=== PATIENT | female | born 1940 | race Caucasian/White ===

== ENCOUNTER 2016-10-21 19:27 | Emergency (ER) | payer OTHER, MEDICARE ==
[~2016-10-21] VITALS: Ht 162.6 cm; Wt 89.8 kg
[~2016-10-21 19:27] MED LIST: ALBUTEROL0.09 MG/A1 INH; AMOXIL 875 MG875 MG PO; ANTIVERT 12.512.5 M1 PO; ANTIVERT 12.512.5 MG PO; ASPIR 8181 MG PO; ASPIRIN EC81 M1 PO; ATIVAN0.5 MG PO; ATIVAN1 MG PO; AUGMENTIN 875 M1 TAB PO; AZITHROMYCIN250 M1 PO; BACTRIM DS 8001 TAB PO; BENADRYL ALLERG25 M1 PO; BENEFIBER1 EACH PO; BLM PO; Benadryl TOP; CEPHALEXIN500 MG PO; CIPRO 500MG TA500 MG PO; CITRATE OF1.75 GM/30 PO; CLARITIN10 MG PO; COLACE100 M1 PO; CYCLOBENZAPRINE5 M2 PO; ECOTRIN81 MG PO; FLU VACCINE 0.0.5 ML IM; HYDROXYZINE HCL25 MG PO; IBU800 MG PO; KEFLEX500 MG PO; LOMOTIL 0.025 M1 TAB PO; LOPERAMIDE2 MG PO; LORAZEPAM0.5 M1 PO; LOTRIMIN CR1 %/30 GM TOP; MACROBID100 MG PO; MECLIZINE HCL PO; MECLIZINE HCL12.5 MG PO; MIRALAX119 GM PO; MIRALAX17 G1 PO; MIRALAX17 GM PO; MOTRIN 600 MG600 MG PO; MOTRIN800 MG PO; NASONEX0.05 MG/Ac NAS; NORVASC 5MG TAB5 MG PO; NYSTATIN100000 U/2 TOP; OMEPRAZOLE D/R20 MG PO; PERCOCET 5-3251 EACH PO; PNEUMOVAX 0.5M0.5 ML IM; PREDNISONE 20MG20 MG PO; PREDNISONE20 MG PO; PRILOSEC 20MG C20 MG PO; PROAIR HFA0.09 MG/Ac INH; PROVENTIL0.09 MG/A1 PO; PYRIDIUM100 MG PO; REGLAN10 MG PO; ROBITUSSIN COU237 ML PO; SENNA PLUS 50 M1 TAB PO; SENNA8.6 M1 PO; SENNA8.6 M3 PO; SPIRIVA 18 MCG18 MCG INH; Senokot S PO; TESSALON PERLE100 M1 PO; TESSALON PERLE100 MG PO; TRAMADOL HCL50 M1 PO; TYLENOL EXTRA500 M2 PO; TYLENOL WITH C1 EACH PO; TYLENOL XSTR500 MG PO; TYLENOL325 MG PO; ULTRAM(MONOGRAP50 MG PO; ZOFRAN 4 MG TABL4 MG PO; ZOFRAN ODT4 MG PO; ZOFRAN ODT4 MG SL; ZOFRAN4 M1 PO; ZOFRAN4 M1 SL; ZOFRAN4 M2 PO
[2016-10-21 20:46] LABS: ABSOLUTE BASOPHIL COUNT 0 /CUMM (0.0-0.2); ABSOLUTE EOSINOPHIL COUNT 0.1 /CUMM (0.0-0.7); ABSOLUTE GRANULOCYTE CT 4.7 /CUMM (1.4-6.5); ABSOLUTE MONOCYTE COUNT 0.3 /CUMM (0.10-0.60); BASOPHIL % 0.2 % (0.0-2.0); EOSINOPHIL % 1.9 % (0-5); GRANULOCYTE % 76.8 % (42.2-75.2); MEAN CORPUSCULAR HGB CONC 33.7 G/DL (33.0-37.0); PLATELET COUNT 207 /CUMM (130-400); RBC DISTRIBUTION WIDTH 14.3 % (11.5-14.5); RED BLOOD CELL CT 4.72 /CUMM (4.20-5.40); WHITE BLOOD CELL COUNT 6.2 /CUMM (4.8-10.8)
--- NOTE | 2016-10-21 21:27 | ED GENERAL ADULT ---
History of Present Illness General Chief Complaint: Upper Respiratory Sx/Fever Stated Complaint: URI, ANXIOUS, X 3 DAYS Source: patient Exam Limitations: no limitations Allergies Coded Allergies: NO KNOWN ALLERGIES (04/27/16) Reconcile Medications Albuterol Sulfate (Proair Hfa) 0.09 MG/Actuation MARCELO 1 PUFF INH 4 TIMES/DAY PRN DYSPNEA DISPENSE WITH SPACER Amlodipine (Norvasc 5MG Tab) 5 MG TABLET 1 TAB PO DAILY HIGH BLOOD PRESSURE Omeprazole 20 MG ECC 1 CAP PO DAILY GI Ondansetron HCl (Zofran) 4 MG TABLET 1 TAB PO Q6-8P PRN NAUSEA Oxycodone HCl/Acetaminophen (Percocet 5-325 MG Tablet) 1 EACH TABLET 1-2 TAB PO Q4-6 PRN pain Polyethylene Glycol 3350 (Miralax) 17 GM POWD.PACK 1 PAC PO PRN GI (Reported) dissolve in water Sennosides (Senna) (Unknown Strength) TABLET (Unknown Dose) PO PRN GI ( Reported) Tylenol With Codeine (Tylenol With Codeine #3 Tablet) 1 EACH TABLET 1 TAB PO BID PRN PAIN Wheat Dextrin (Benefiber) 1 EACH POWD.PACK 1 PAC PO PRN GI (Reported) Triage Note: RECEIVED 76 YO FEMALE C/O FEELING DIZZY, SHAKY, LOW B/P, UPPER RESP SYMPTOMS, FEELING SOB AND SPRINGY ALL OVER. COUGHING, DRY. Triage Nurses Notes Reviewed? yes HPI: This patient is a 76-year-old female with past medical history including anxiety who presented to the emergency department today for multiple complaints. She reported that her seasonal allergies have been acting up and she has been congested. She also reported, "something is wrong with my right kidney." She is requesting a CT scan to evaluate her kidney. Patient reported that she is feeling burning where, "cyst on the left is." The patient reported that she feels like her breathing has been faster than normal. She denied any fevers, chills, chest pain. She also reported itching under her abdominal fold. The patient denied any urinary burning, urgency, frequency, as well as the urine. She also reported she isn't feeling constipated. No diarrhea. (SHANNAN QUINTANA,DAVIDA) Vital Signs & Intake/Output Vital Signs & Intake/Output ED Intake and Output 10/22 0000 10/21 1200 Intake Total 1000 Output Total Balance 1000 Intake, IV 1000 Patient 198 lb Weight Past History Travel History Traveled to [place] past 21 day No Medical History Any Pertinent Medical History? 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 FH: colon cancer BROTHER (Bypass Sx). FHx: melanoma Relation not specified for: FH: coronary artery bypass surgery FH: stroke Hx Contributory? Yes (DAVIDA CAMPBELL PA-C) Review of Systems Review of Systems Constitutional: Reports: no symptoms. EENTM: Reports: see HPI. Respiratory: Reports: see HPI. Cardiovascular: Reports: no symptoms. GI: Reports: see HPI. Genitourinary: Reports: see HPI. Musculoskeletal: Reports: no symptoms. Skin: Reports: see HPI. Neurological/Psychological: Reports: no symptoms. All Other Systems: Reviewed and Negative (DAVIDA CAMPBELL PA-C) Physical Exam Physical Exam General Appearance: well developed/nourished, no apparent distress, alert, awake Comments: Well-developed well-nourished person in no acute distress HEENT: Normal EENT exam, head normocephalic, moist mucous membranes Pupils equally round and reactive to light. Neck: Supple Back: Normal inspection. No CVA tenderness Cardiovascular: Regular rate and rhythm with no murmurs, rubs, gallops Respiratory: No respiratory distress. Breath sounds clear to auscultation bilaterally with no wheezes, rales, rhonchi Abdomen: Soft, nontender and nondistended Extremity: Normal and equal pulses. Neuro: Alert oriented x3, cranial nerves II through XII grossly intact. Skin: No appreciable rash on exposed skin, skin is warm and dry. Psych: Mood and affect is normal Core Measures ACS in differential dx? Yes CVA/TIA Diagnosis: No Severe Sepsis Present: No Septic Shock Present: No (SHANNAN QUINTANA,DAVIDA) Progress Differential Diagnoses I considered the following diagnoses in my evaluation of the patient: [Allergic rhinitis, influenza, ureterolithiasis, hydronephrosis, pyelonephritis, UTI, ovarian cyst, chronic pain, viral syndrome, gastroenteritis, constipation] Plan of Care: Orders Procedure Date/time Status CULTURE,URINE 10/21 2114 Active URINALYSIS 10/21 2114 Complete TROPONIN LEVEL 10/21 2018 Complete MAGNESIUM 10/21 2018 Complete COMPREHENSIVE METABOLIC PANEL 10/21 2018 Complete CBC WITHOUT DIFFERENTIAL 10/21 2018 Complete Laboratory Tests 10/21/162114: Urine Color STRAW, Urine Clarity CLEAR, Urine pH 6.5, Ur Specific [place] <= 1.005, Urine Protein NEG, Urine Ketones NEG, Urine Nitrite NEG, Urine Bilirubin NEG, Urine Urobilinogen 0.2, Ur Leukocyte Esterase NEG, Ur Microscopic SEDIMENT EXAMINED, Urine RBC RARE, Ur Epithelial Cells RARE, Urine Hemoglobin TRACE- INTACT, Urine Glucose NEG 10/21/162035: Anion Gap 14, Estimated GFR > 60, BUN/Creatinine Ratio 22.2, Glucose 94, Calcium 9.5, Magnesium 1.9, Total Bilirubin 0.7, AST 23, ALT 15, Alkaline Phosphatase 78 , Troponin I 0.02, Total Protein 7.1, Albumin 4.2, Globulin 2.9, Albumin/ Globulin Ratio 1.4, CBC w Diff NO MAN DIFF REQ, RBC 4.72, MCV 89.0, MCH 30.0, RDW 14.3, MPV 8.0, Gran % 76.8 H, Lymphocytes % 16.0 L, Monocytes % 5.1, Eosinophils % 1.9, Basophils % 0.2, Absolute Granulocytes 4.7, Absolute Lymphocytes 1.0 L, Absolute Monocytes 0.3, Absolute Eosinophils 0.1, Absolute Basophils 0, PUBS MCHC 33.7 Microbiology 10/21 2114 URINE ROUT: Urine Culture - RECD Diagnostic Imaging: Viewed by Me: CT Scan. Discussed w/RAD: CT Scan. Radiology Impression: PATIENT: ABA DIAZ PRESENT AGE: 76 PATIENT ACCOUNT NO: [id number] : 41 LOCATION: [facility] ORDERING PHYSICIAN: DAVIDA CAMPBELL PA-C SERVICE DATE: 10/21/16 EXAM TYPE: CAT - CT ABD & PELVIS W/O IV CONTRAS EXAMINATION: CT ABDOMEN AND PELVIS WITHOUT CONTRAST CLINICAL INFORMATION: Right flank pain and burning. Assess for renal abnormality. COMPARISON: CT scan of the abdomen and pelvis 09/23/2016. TECHNIQUE: Multidetector volumetric imaging was performed from the superior aspect of the liver through the pubic symphysis. Sagittal and coronal reformatted images were obtained on the technologist's workstation. DLP: 710.19 mGy-cm. FINDINGS: LUNG BASES: There are linear opacities in the anterior lower lobes bilaterally consistent with atelectasis. LIVER, GALLBLADDER, AND BILIARY TREE: The liver is normal in size, shape, and attenuation. No focal hepatic lesion or biliary ductal dilatation is present. The gallbladder is unremarkable with no evidence of radiopaque gallstones, gallbladder wall thickening, or obvious pericholecystic inflammatory changes. PANCREAS: Unremarkable. SPLEEN: The spleen is normal in size and has uniform density. ADRENAL GLANDS: The left adrenal gland is prominent, and measures 1.7 x 1.0 cm, similar compared to the prior study. It has Hounsfield units less than 10 and is consistent with a lipid rich adenoma. The right adrenal gland appears normal. KIDNEYS AND URETERS: There has been no interval change in the 3 mm nonobstructing calculus at the lower pole of the right kidney nor in the 2 mm nonobstructive calculus at the lower pole of the left kidney. There is a stable exophytic renal cyst at the lower pole of the left kidney which measures 3.6 cm in diameter. There are stable left parapelvic renal cysts. There is a stable extrarenal pelvis on the right. There is no hydronephrosis. There is no perinephric stranding. Both ureters are normal in caliber and there are no radiopaque ureteric calculi. BLADDER: The bladder is moderately well-distended. No calcifications are noted dependently within the bladder lumen. GASTROINTESTINAL TRACT: There is a small hiatal hernia. The small bowel loops are unremarkable. The appendix is normal. There is moderate stool within the proximal large bowel. Anastomotic sutures are redemonstrated in the proximal sigmoid colon. ABDOMINAL WALL: The study redemonstrates the sequelae of anterior abdominal wall surgery. The previously described thick-walled fluid collection in the ventral abdominal wall has slightly decreased in size, and measures 3.6 x 1.2 x 6.2 cm. No new hernias are demonstrated.. LYMPH NODES: There is no pelvic or retroperitoneal lymphadenopathy. VASCULAR: There are atheromatous calcifications of the aorta and its branches. PELVIC VISCERA: The uterus is small and anteverted and is unchanged compared to the prior study. There are no large pelvic masses. OSSEOUS STRUCTURES: There are degenerative changes of the left sacroiliac joint, and there are multilevel degenerative changes in the visualized thoracic and in the lumbar spine. There are no acute fractures or subluxations. IMPRESSION: 1. The study redemonstrates punctate nonobstructive calcifications in the left and right kidneys. 2. There is no hydronephrosis or hydroureter. 3. The appendix appears normal. 4. There has been interval decrease in the thick-walled fluid collection in the ventral abdominal wall. 5. There is a stable left adrenal nodule. DICTATED BY: JOSAFAT HOWARD MD DATE/TIME DICTATED:10/21/162218 BLOCK CAPTAIN:MARIANO DATE/TIME TRANSCRIBED:10/21/162218 CONFIDENTIAL, DO NOT COPY WITHOUT APPROPRIATE AUTHORIZATION. <Electronically signed in Other Vendor System> SIGNED BY: JOSAFAT HOWARD MD 10/21/162237 Initial ED EKG: none (DAVIDA CAMPBELL PA-C) Departure Departure Disposition: HOME OR SELF CARE Condition: Stable Clinical Impression Primary Impression: Viral syndrome Referrals: INA RAMOS MD (PCP/Family) Additional Instructions: Continue to take all previously prescribed medications as directed. Rest and stay hydrated. Return for any worsening symptoms or concerns. Please call to schedule a follow-up appointment with your primary care physician. Departure Forms: Customer Survey General Discharge Information (DAVIDA CAMPBELL PA-C) PA/APPLICATION SECURITY ARCHITECT Co-Sign Statement Statement: ED Attending supervision documentation- [x] I saw and evaluated the patient. I have also reviewed all the pertinent lab results and diagnostic results. I agree with the findings and the plan of care as documented in the PA's/APPLICATION SECURITY ARCHITECT's documentation. [x] I have reviewed the ED Record and agree with the PA's/APPLICATION SECURITY ARCHITECT's documentation. [] Additions or exceptions (if any) to the PAs/APPLICATION SECURITY ARCHITECT's note and plan are summarized below: [] (SUDARSHAN DAMON MD) Critical Care Note Critical Care Note Critical Care Time: non-applicable (DAVIDA CAMPBELL PA-C) [x] I have reviewed the ED Record and agree with the PA's/APPLICATION SECURITY ARCHITECT's documentation. [] Additions or exceptions (if any) to the PAs/APPLICATION SECURITY ARCHITECT's note and plan are summarized below: [] (MARISOL MORENO,SUDARSHAN Maciel) Critical Care Note Critical Care Note Critical Care Time: non-applicable (DAVIDA CAMPBELL PA-C)
--- NOTE | 2016-10-21 22:38 | CT SCAN REPORT ---
EXAMINATION: CT ABDOMEN AND PELVIS WITHOUT CONTRAST CLINICAL INFORMATION: Right flank pain and burning. Assess for renal abnormality. COMPARISON: CT scan of the abdomen and pelvis 09/23/2016. TECHNIQUE: Multidetector volumetric imaging was performed from the superior aspect of the liver through the pubic symphysis. Sagittal and coronal reformatted images were obtained on the technologist's workstation. DLP: 710.19 mGy-cm. FINDINGS: LUNG BASES: There are linear opacities in the anterior lower lobes bilaterally consistent with atelectasis. LIVER, GALLBLADDER, AND BILIARY TREE: The liver is normal in size, shape, and attenuation. No focal hepatic lesion or biliary ductal dilatation is present. The gallbladder is unremarkable with no evidence of radiopaque gallstones, gallbladder wall thickening, or obvious pericholecystic inflammatory changes. PANCREAS: Unremarkable. SPLEEN: The spleen is normal in size and has uniform density. ADRENAL GLANDS: The left adrenal gland is prominent, and measures 1.7 x 1.0 cm, similar compared to the prior study. It has Hounsfield units less than 10 and is consistent with a lipid rich adenoma. The right adrenal gland appears normal. KIDNEYS AND URETERS: There has been no interval change in the 3 mm nonobstructing calculus at the lower pole of the right kidney nor in the 2 mm nonobstructive calculus at the lower pole of the left kidney. There is a stable exophytic renal cyst at the lower pole of the left kidney which measures 3.6 cm in diameter. There are stable left parapelvic renal cysts. There is a stable extrarenal pelvis on the right. There is no hydronephrosis. There is no perinephric stranding. Both ureters are normal in caliber and there are no radiopaque ureteric calculi. BLADDER: The bladder is moderately well-distended. No calcifications are noted dependently within the bladder lumen. GASTROINTESTINAL TRACT: There is a small hiatal hernia. The small bowel loops are unremarkable. The appendix is normal. There is moderate stool within the proximal large bowel. Anastomotic sutures are redemonstrated in the proximal sigmoid colon. ABDOMINAL WALL: The study redemonstrates the sequelae of anterior abdominal wall surgery. The previously described thick-walled fluid collection in the ventral abdominal wall has slightly decreased in size, and measures 3.6 x 1.2 x 6.2 cm. No new hernias are demonstrated.. LYMPH NODES: There is no pelvic or retroperitoneal lymphadenopathy. VASCULAR: There are atheromatous calcifications of the aorta and its branches. PELVIC VISCERA: The uterus is small and anteverted and is unchanged compared to the prior study. There are no large pelvic masses. OSSEOUS STRUCTURES: There are degenerative changes of the left sacroiliac joint, and there are multilevel degenerative changes in the visualized thoracic and in the lumbar spine. There are no acute fractures or subluxations. IMPRESSION: 1. The study redemonstrates punctate nonobstructive calcifications in the left and right kidneys. 2. There is no hydronephrosis or hydroureter. 3. The appendix appears normal. 4. There has been interval decrease in the thick-walled fluid collection in the ventral abdominal wall. 5. There is a stable left adrenal nodule.
[2016-10-21 23:08] VITALS: BP 136/84
== END 2016-10-21 23:45 ==
LOC: ERH 19:27
PROVIDERS: Physician Assistant
DX: B34.9 Viral infection, unspecified (principal)
CPT/HCPCS: 74176; 81001; 87086; 96374; J2405

== ENCOUNTER 2016-11-20 08:13 | Emergency (ER) | payer OTHER, MEDICARE ==
[~2016-11-20] VITALS: Ht 162.6 cm; Wt 89.8 kg
[2016-11-20 08:18] VITALS: BP 177/79
--- NOTE | 2016-11-20 08:24 | ED INFLUENZA/URI COMPLAINT ---
History of Present Illness General Chief Complaint: General Adult Stated Complaint: COUGH Source: patient, old records, EMS Exam Limitations: no limitations Vital Signs & Intake/Output Vital Signs & Intake/Output Vital Signs Date Time Temp Pulse Resp B/P Pulse O2 O2 Flow FiO2 Ox Delivery Rate 11/20 0900 100 11/20 0818 97.7 95 20 177/79 100 Room Air Allergies Coded Allergies: NO KNOWN ALLERGIES (04/27/16) Reconcile Medications Albuterol Sulfate (Proair Hfa) 0.09 MG/Actuation MARCELO 1 PUFF INH 4 TIMES/DAY PRN DYSPNEA DISPENSE WITH SPACER Amlodipine (Norvasc 5MG Tab) 5 MG TABLET 1 TAB PO DAILY HIGH BLOOD PRESSURE Omeprazole 20 MG ECC 1 CAP PO DAILY GI Ondansetron HCl (Zofran) 4 MG TABLET 1 TAB PO Q6-8P PRN NAUSEA Oxycodone HCl/Acetaminophen (Percocet 5-325 MG Tablet) 1 EACH TABLET 1-2 TAB PO Q4-6 PRN pain Polyethylene Glycol 3350 (Miralax) 17 GM POWD.PACK 1 PAC PO PRN GI (Reported) dissolve in water Sennosides (Senna) (Unknown Strength) TABLET (Unknown Dose) PO PRN GI ( Reported) Tylenol With Codeine (Tylenol With Codeine #3 Tablet) 1 EACH TABLET 1 TAB PO BID PRN PAIN Wheat Dextrin (Benefiber) 1 EACH POWD.PACK 1 PAC PO PRN GI (Reported) Triage Note: PT BIBA FROM HOME AND STATES "IM FEELING BOUNCY, DRY AND PASTY" PT C/O PRODUCTIVE COUGH AND STATES SHE IS GAGGING AND SPINING. PT WAS PUT ON AMPICILLIAN BY DR ZEPEDA LAST WEDNESDAY FOR COLD SYMPTOMS. PT STATES SHE IS COLD AND SHAKEY AND THE HEAT IS TERRIBLE IN HER HOUSE Triage Nurses Notes Reviewed? yes Onset: Gradual Duration: day(s): (few) Timing: recent history Severity: moderate No Modifying Factors: none HPI: 76 year old female arrives via EMS from home for chief complaint of cough and not feeling well. She states that she was feeling jumpy and shaky and complains also of gagging and spitting up. No chest pain. No fever. She states that she could not wait to see her primary care doctor in the office. Past History Travel History Traveled to [place] past 21 day No Medical History Any Pertinent Medical History? see below for history Neurological: vertigo EENT: allergies, cataracts, INNER EAR Cardiovascular: hypertension, negative stress test 2014 Respiratory: asthma, bronchitis, COPD Gastrointestinal: constipation, GERD, HERNIA, COLON RESECTION Hepatic: NONE Renal: NONE, UTI Musculoskeletal: disk herniation Psychiatric: anxiety Endocrine: NONE Blood Disorders: NONE Cancer(s): breast cancer, colon/rectal cancer MOTORMAN/WOMAN/Reproductive: NONE History of MRSA: No History of VRE: No History of CDIFF: No Surgical History Surgical History: hernia repair-incisional, lumpectomy (right), HERNIATED DISC, CATARACTS, COLON RESECTION Psychosocial History Who do you live with Patient/Self Services at Home Home Health Aide What is your primary language [place] Island[place] Tobacco Use: Never used ETOH Use: denies use Illicit Drug Use: denies illicit drug use Family History Family History, If Any: MOTHER (colon cancer, stroke at age of 70s). FH: colon cancer BROTHER (Bypass Sx). FHx: melanoma Relation not specified for: FH: coronary artery bypass surgery FH: stroke Hx Contributory? No Review of Systems Review of Systems Constitutional: Reports: chills. Denies: fever. EENTM: Reports: no symptoms. Respiratory: Reports: cough, short of breath, sputum production. Cardiovascular: Denies: chest pain, palpitations. GI: Denies: abdominal pain. Genitourinary: Reports: no symptoms. Musculoskeletal: Reports: no symptoms. Skin: Reports: no symptoms. Neurological/Psychological: Reports: see HPI, anxiety. Hematologic/Endocrine: Denies: bruising, bleeding, polyuria. Immunologic/Allergic: Denies: splenectomy. All Other Systems: Reviewed and Negative Physical Exam Physical Exam General Appearance: well developed/nourished, alert, awake, anxious, mild distress, obese Head: atraumatic, normal appearance Eyes: Bilateral: normal appearance, PERRL, EOMI. Ears, Nose, Throat: normal ENT inspection, moist mucous membrane Neck: normal inspection, supple, full range of motion Respiratory: lungs clear, decreased breath sounds Cardiovascular: regular rate/rhythm Peripheral Pulses: 2+ radial (R), 2+ radial (L) Gastrointestinal: soft, non-tender Neurologic/Psych: awake, alert, oriented x 3 Skin: intact, normal color Core Measures Severe Sepsis Present: No Septic Shock Present: No Progress Differential Diagnosis: bronchitis, anxiety, Plan of Care: Orders Procedure Date/time Status RT ED ORDERS 11/20 828 Active EKG 11/20 823 Active Diagnostic Imaging: Viewed by Me: Radiology Read. Discussed w/RAD: Radiology Read. Radiology Impression: PATIENT: ABA DIAZ PRESENT AGE: 76 PATIENT ACCOUNT NO: [id number] : 41 LOCATION: ER ORDERING PHYSICIAN: RAFITA ESTRADA MD SERVICE DATE: 11/20/16 EXAM TYPE: RAD - XRY-CHEST XRAY, PA AND LATERAL EXAMINATION: XR CHEST CLINICAL INFORMATION: Cough. COMPARISON: 10/03/2016 TECHNIQUE: 2 views of the chest were obtained. FINDINGS: The thoracic aorta remains unfolded. The heart size is normal. The lungs are clear. No consolidation, pulmonary edema, pleural effusion, or pneumothorax. There are mild multilevel degenerative changes of the spine without evidence of acute osseous abnormality. IMPRESSION: No acute abnormality. DICTATED BY: YASMANI BROWNLEE MD DATE/TIME DICTATED:11/20/16927 CUTTER WOODWIND REEDS:MARIANO DATE/TIME TRANSCRIBED:11/20/16927 CONFIDENTIAL, DO NOT COPY WITHOUT APPROPRIATE AUTHORIZATION. <Electronically signed in Other Vendor System> SIGNED BY: YASMANI BROWNLEE MD 11/20/16933 Initial ED EKG: NSR Departure Departure Time of Disposition: 1013 Disposition: HOME OR SELF CARE Condition: Stable Clinical Impression Primary Impression: Bronchitis Referrals: INA ZEPEDA MD (PCP/Family) Additional Instructions: Continue your regular medications including albuterol as needed. Follow-up with Dr. Zepeda as needed in the office. Departure Forms: Customer Survey General Discharge Information
--- NOTE | 2016-11-20 09:34 | RADIOLOGY REPORT ---
EXAMINATION: XR CHEST CLINICAL INFORMATION: Cough. COMPARISON: 10/03/2016 TECHNIQUE: 2 views of the chest were obtained. FINDINGS: The thoracic aorta remains unfolded. The heart size is normal. The lungs are clear. No consolidation, pulmonary edema, pleural effusion, or pneumothorax. There are mild multilevel degenerative changes of the spine without evidence of acute osseous abnormality. IMPRESSION: No acute abnormality.
== END 2016-11-20 10:27 ==
LOC: ERH 08:13
DX: J40 Bronchitis, not specified as acute or chronic (principal)
CPT/HCPCS: 1263; 93005; 93010

== ENCOUNTER 2016-12-07 07:55 | Emergency (ER) | payer OTHER, MEDICARE ==
[~2016-12-07] VITALS: Ht 162.6 cm; Wt 99.8 kg
--- NOTE | 2016-12-07 08:01 | ED GI/GU/ABDOMINAL COMPLAINT ---
History of Present Illness General Chief Complaint: General Adult Stated Complaint: BIBA EPIGASTRIC PAIN Source: patient, old records, EMS Exam Limitations: no limitations Vital Signs & Intake/Output Vital Signs & Intake/Output Vital Signs Date Time Temp Pulse Resp B/P Pulse O2 O2 Flow FiO2 Ox Delivery Rate 12/07 1030 97.2 70 18 136/89 96 Room Air 12/07 0943 97.0 67 143/64 12/07 0855 78 138/63 12/07 0836 97.0 80 20 138/60 99 Room Air 12/07 0806 Room Air Room Air 12/07 0758 96.2 93 20 132/64 96 Room Air ED Intake and Output 12/08 0000 12/07 1200 Intake Total 120 Output Total 450 Balance -330 Intake, Oral 120 Output, Urine 450 Patient 220 lb Weight Allergies Coded Allergies: NO KNOWN ALLERGIES (12/07/16) Reconcile Medications Albuterol Sulfate (Proair Hfa) 0.09 MG/Actuation MARCELO 1 PUFF INH 4 TIMES/DAY PRN DYSPNEA DISPENSE WITH SPACER Amlodipine (Norvasc 5MG Tab) 5 MG TABLET 1 TAB PO DAILY HIGH BLOOD PRESSURE Omeprazole 20 MG ECC 1 CAP PO DAILY GI Ondansetron (Zofran Odt) 4 MG TAB.RAPDIS 1 TAB SL TID PRN nausea Ondansetron HCl (Zofran) 4 MG TABLET 1 TAB PO Q6-8P PRN NAUSEA Oxycodone HCl/Acetaminophen (Percocet 5-325 MG Tablet) 1 EACH TABLET 1-2 TAB PO Q4-6 PRN pain Polyethylene Glycol 3350 (Miralax) 17 GM POWD.PACK 1 PAC PO PRN GI (Reported) dissolve in water Sennosides (Senna) (Unknown Strength) TABLET (Unknown Dose) PO PRN GI ( Reported) Tylenol With Codeine (Tylenol With Codeine #3 Tablet) 1 EACH TABLET 1 TAB PO BID PRN PAIN Wheat Dextrin (Benefiber) 1 EACH POWD.PACK 1 PAC PO PRN GI (Reported) Triage Nurses Notes Reviewed? yes ? n Is pt currently ? No Onset: Gradual Duration: week(s):, constant Timing: recent history Quality/Severity: aching, cramping Severity Numbers: 5 Location: epigastric Radiation: no radiation Activities at Onset: none Prior Abdominal Problems: similar symptoms (s/p hernia repair) No Modifying Factors: none Associated Symptoms: denies HPI: This is a 76-year-old female well known to this institution presents brought in by ambulance complaining of epigastric abdominal pain and feeling short of breath intermittently that's been going on for several weeks. The patient attributed these symptoms since having her hernia surgery April 2016. There's been no fever no chills cough is nonproductive. She denies any chest pain dizziness lightheadedness. The patient reports to feeling nauseous however denies any vomiting or diarrhea. There are no modifying factors or associated symptoms otherwise. There's been no change in her appetite no sick contacts (JORGITO FREDERICK) Past History Travel History Traveled to [place] past 21 day No Medical History Any Pertinent Medical History? 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 FH: colon cancer BROTHER (Bypass Sx). FHx: melanoma Relation not specified for: FH: coronary artery bypass surgery FH: stroke Hx Contributory? No (JORGITO FREDERICK) Review of Systems Review of Systems Constitutional: Reports: see HPI. All Other Systems: Reviewed and Negative Comments Review of systems: See HPI, All other systems negative. Constitutional, no chills no fever, no malaise no weight loss HEENT: no sore throat no congestion, no ear pain Cardiovascular: No chest pain , no palpitation , no orthopnea no ankle swelling Skin, no jaundice no rashes, no change in skin Respiratory: No dyspnea cough no sputum no hemoptysis GI: No nausea no vomiting, no diarrhea,constipation : No dysuria No hematuria, no frequency, Muscle skeletal: No joint pain, no joint swelling, no back pain, no neck pain, Neurologic: , no headache Psych: No stress Heme/endocrine: No bruising no bleeding Immunology: No lymphadenopathy, (JORGITO FREDERICK) Physical Exam Physical Exam General Appearance: well developed/nourished, no apparent distress, alert, awake Gastrointestinal: soft Comments: Well-developed well-nourished person in no acute distress HEENT: Normal EENT exam; PERRL, EOMI, HEAD is atraumatic. moist mucous membranes. Neck: Supple,normal range of motion Back: Nontender, no CVA tenderness. Full range of motion Cardiovascular: Regular rate and rhythms no murmurs rubs Respiratory: Chest nontender.There were no bony deformities, no asymmetry. No respiratory distress. Patient speaking in full complete sentences. Breath sounds clear to auscultation bilaterally: NO W/R/R Abdomen: Soft, nontender nondistended, no appreciable organomegaly. Normal bowel sounds. No rebound/guarding, Extremity: No edema, full range of motion of extremities Neuro: Alert oriented x3, motor sensory normal,There were no obvious focal neurologic abnormalities. Skin: No appreciable rash on exposed skin, skin is warm and dry. Psych: Mood and affect is normal, memory and judgment is normal. Core Measures ACS in differential dx? Yes Severe Sepsis Present: No Septic Shock Present: No (JORGITO FREDERICK) Progress Differential Diagnosis: AMI, bowel obstruction, colon cancer, diverticulitis, gastritis, hernia, ischemic bowel, inflamm bowel dis, peptic ulcer, PUD/GERD, UTI/pyelo, PNA, BRONCHITIS, INFLUENZA, DEHYDRATION Plan of Care: Orders Procedure Date/time Status URINALYSIS 12/07 0947 Complete TROPONIN LEVEL 12/07 0807 Complete CBC WITHOUT DIFFERENTIAL 12/07 0807 Complete BASIC METABOLIC PANEL 12/07 0807 Complete EKG 12/07 0807 Active Laboratory Tests 12/07/16 0948: Urine Color YEL, Urine Clarity CLEAR, Urine pH 6.0, Ur Specific [place] 1.010, Urine Protein NEG, Urine Ketones NEG, Urine Nitrite NEG, Urine Bilirubin NEG, Urine Urobilinogen 0.2, Ur Leukocyte Esterase NEG, Ur Microscopic SEDIMENT EXAMINED, Urine RBC RARE, Urine WBC RARE, Ur Epithelial Cells FEW, Urine Bacteria FEW H, Urine Mucus MOD H, Urine Hemoglobin TRACE-INTACT, Urine Glucose NEG 12/07/16 0832: Anion Gap 8, Estimated GFR > 60, BUN/Creatinine Ratio 22.5, Glucose 94, Calcium 9.2, Troponin I < 0.01, CBC w Diff NO MAN DIFF REQ, RBC 4.60, MCV 90.1, MCH 30.4 , RDW 13.8, MPV 8.1, Gran % 78.4 H, Lymphocytes % 13.2 L, Monocytes % 5.7, Eosinophils % 2.4, Basophils % 0.3, Absolute Granulocytes 4.7, Absolute Lymphocytes 0.8 L, Absolute Monocytes 0.3, Absolute Eosinophils 0.1, Absolute Basophils 0, PUBS MCHC 33.8 LABS ORDERED, pt resting in nad, zofran 4odt, meclizine 25mg po ordered case d.w dr rees Discussed with patient at length all of her lab results x-ray findings patient reports feeling improved with Zofran and meclizine prescription for the same were provided advised close follow-up with her primary care physician, return anytime sooner with any concerns answered all her questions cleared for discharge. pt amb with steady gait upon dc (OMI JOLLY,JORGITO) Diagnostic Imaging: Viewed by Me: Radiology Read. Discussed w/RAD: Radiology Read. Radiology Impression: PATIENT: ABA DIAZ PRESENT AGE: 76 PATIENT ACCOUNT NO: [id number] : 41 LOCATION: [facility] ORDERING PHYSICIAN: JORGITO JOLLY SERVICE DATE: 12/07/16 EXAM TYPE: RAD - XRY-CHEST XRAY, PA AND LATERAL EXAMINATION: XR CHEST, 2 VIEWS CLINICAL INFORMATION: Dyspnea. Rule out CHF. COMPARISON: 11/20/2016 TECHNIQUE: PA and lateral views of the chest were obtained. FINDINGS: Lungs are clear. No consolidation, pneumothorax, or pleural effusion. Cardiac and mediastinal contours are normal. Pulmonary vasculature is unremarkable. Mild degenerative spondylosis is present in the thoracic spine. IMPRESSION: No acute pulmonary findings DICTATED BY: DARRION SYLVESTER MD DATE/TIME DICTATED:12/07/16955 TAFE LECTURER:MARIANO DATE/TIME TRANSCRIBED:12/07/16955 CONFIDENTIAL, DO NOT COPY WITHOUT APPROPRIATE AUTHORIZATION. <Electronically signed in Other Vendor System> SIGNED BY: DARRION SYLVESTER MD 12/07/16 1001 Initial ED EKG: nsr at 70, no acute st seg changes, normal axis Prior EKG: unchanged (11/2016) (JORGITO FREDERICK) Departure Departure Time of Disposition: 1134 Disposition: HOME OR SELF CARE Condition: Stable Clinical Impression Primary Impression: Nausea Referrals: INA RAMOS MD (PCP/Family) Additional Instructions: Follow-up with your primary care physician. Zofran as needed for nausea as needed, this was sent to your pharmacy Departure Forms: Customer Survey General Discharge Information Prescriptions: Current Visit Scripts Ondansetron (Zofran Odt) 1 TAB SL TID PRN nausea #10 TAB (JORGITO FREDERICK) PA/WAREHOUSE SELECTOR Co-Sign Statement Statement: ED Attending supervision documentation- [X] I saw and evaluated the patient. I have also reviewed all the pertinent lab results and diagnostic results. I agree with the findings and the plan of care as documented in the PA's/WAREHOUSE SELECTOR's documentation. [] I have reviewed the ED Record and agree with the PA's/WAREHOUSE SELECTOR's documentation. [] Additions or exceptions (if any) to the PAs/WAREHOUSE SELECTOR's note and plan are summarized below: [] (RONAK MORENO,GUMARO Weaver)
[2016-12-07 08:44] LABS: ABSOLUTE BASOPHIL COUNT 0 /CUMM (0.0-0.2); ABSOLUTE EOSINOPHIL COUNT 0.1 /CUMM (0.0-0.7); ABSOLUTE GRANULOCYTE CT 4.7 /CUMM (1.4-6.5); ABSOLUTE LYMPH COUNT 0.8 /CUMM (1.2-3.4); ABSOLUTE MONOCYTE COUNT 0.3 /CUMM (0.10-0.60); BASOPHIL % 0.3 % (0.0-2.0); EOSINOPHIL % 2.4 % (0-5); GRANULOCYTE % 78.4 % (42.2-75.2); HEMATOCRIT 41.4 % (37-47); MEAN CORPUSCULAR HGB 30.4 PG (27.0-31.0); MEAN CORPUSCULAR HGB CONC 33.8 G/DL (33.0-37.0); MEAN CORPUSCULAR VOLUME 90.1 FL (81.0-99.0); MEAN PLATELET VOLUME 8.1 FL (7.4-10.4); PLATELET COUNT 214 /CUMM (130-400); RBC DISTRIBUTION WIDTH 13.8 % (11.5-14.5)
--- NOTE | 2016-12-07 10:01 | RADIOLOGY REPORT ---
EXAMINATION: XR CHEST, 2 VIEWS CLINICAL INFORMATION: Dyspnea. Rule out CHF. COMPARISON: 11/20/2016 TECHNIQUE: PA and lateral views of the chest were obtained. FINDINGS: Lungs are clear. No consolidation, pneumothorax, or pleural effusion. Cardiac and mediastinal contours are normal. Pulmonary vasculature is unremarkable. Mild degenerative spondylosis is present in the thoracic spine. IMPRESSION: No acute pulmonary findings
[2016-12-07 10:30] VITALS: BP 136/89
[2016-12-07] MEDS ORDERED: ZOFRAN ODT4 M1 SL (11:35)
[2016-12-08] MEDS ORDERED: AMLODIPINE BESYL5 M1 PO (08:54)
== END 2016-12-07 11:52 ==
LOC: ERH 07:55
PROVIDERS: Physician Assistant Medical
DX: R11.0 Nausea (principal)
CPT/HCPCS: 81001; 93005; 93010; J2405; J3101

== ENCOUNTER 2016-12-08 08:28 | Emergency (ER) | payer OTHER, MEDICARE ==
[~2016-12-08] VITALS: Ht 162.6 cm; Wt 89.8 kg
[~2016-12-08 08:28] MED LIST changes: +ZOFRAN ODT4 M1 SL
[2016-12-08] MEDS ORDERED: AMLODIPINE BESYL5 M1 PO (08:54)
--- NOTE | 2016-12-08 09:24 | ED GI/GU/ABDOMINAL COMPLAINT ---
History of Present Illness General Chief Complaint: Abdominal Pain/Flank Pain Stated Complaint: BIBA, ABDOMINAL PAIN Source: patient, old records Exam Limitations: poor historian Vital Signs & Intake/Output Vital Signs & Intake/Output Vital Signs Date Time Temp Pulse Resp B/P Pulse O2 O2 Flow FiO2 Ox Delivery Rate 12/08 1308 97.0 90 20 140/70 99 Room Air ED Intake and Output / 0000 12/08 1200 Intake Total 0 Output Total Balance 0 Intake, Oral 0 Patient 198 lb Weight Allergies Coded Allergies: NO KNOWN ALLERGIES (12/07/16) Reconcile Medications Amlodipine Besylate 5 MG TABLET 1 TAB PO DAILY HEART (Reported) Ondansetron (Zofran Odt) 4 MG TAB.RAPDIS 1 TAB SL TID PRN nausea Triage Note: PT BIBA FROM HOME FOR MULTIPLE COMPLAINTS: BOUNCING FEELING IN STOMACH, "FEELING SICK AND MY BLOOD SAID I WAS DRY YESTERDAY." PT A/O X 4. NO ACUTE DISTRESS NOTED. Triage Nurses Notes Reviewed? yes ? n Is pt currently ? No Duration: week(s):, continues in ED, getting worse, intermittent Quality/Severity: burning Severity Numbers: 10 Radiation: no radiation Activities at Onset: rest Prior Abdominal Problems: similar symptoms Modifying Factors: Improves With: coughing. HPI: Patient presents for evaluation of bilateral burning rib pain that has been there for "a long time". She states it similar to a prior hernia pain that she had (she is status post ventral hernia repair after colon resection due to colon cancer). Past History Travel History Traveled to [place] past 21 day No Medical History Any Pertinent Medical History? 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 FH: colon cancer BROTHER (Bypass Sx). FHx: melanoma Relation not specified for: FH: coronary artery bypass surgery FH: stroke Hx Contributory? No Review of Systems Review of Systems Constitutional: Reports: no symptoms. EENTM: Reports: no symptoms. Respiratory: Reports: no symptoms. Cardiovascular: Reports: no symptoms. GI: Reports: see HPI. Genitourinary: Reports: no symptoms. Musculoskeletal: Reports: no symptoms. Skin: Reports: no symptoms. Neurological/Psychological: Reports: no symptoms. Hematologic/Endocrine: Reports: no symptoms. Immunologic/Allergic: Reports: no symptoms. All Other Systems: Reviewed and Negative Physical Exam Physical Exam Gastrointestinal: see below Comments: Gen.: Well-nourished, well-developed, no acute respiratory distress. Head: Normocephalic, atraumatic. Eyes: Normal inspection bilaterally Ears: Normal inspection bilaterally Nose: Normal inspection Throat/mouth : Moist mucosa Neck: Supple, full range of motion, no goiter Heart: Regular rate and rhythm, no murmurs rubs or gallops Lungs: Clear to auscultation bilaterally with normal air entry Chest: Nontender Back: Normal range of motion Abdomen: Soft, diffuse tenderness without rebound or guarding, nondistended, normal bowel sounds Extremities: Normal range of motion grossly, equal radial pulses, no cyanosis clubbing or edema Neurologic: Cranial nerves grossly intact, speech is clear Skin: warm and dry Psychiatric: Calm, cooperative, no apparent delusions or hallucinations Core Measures ACS in differential dx? No Severe Sepsis Present: No Septic Shock Present: No Progress Differential Diagnosis: bowel obstruction, pancreatitis, PUD/GERD, SBO Plan of Care: Orders Procedure Date/time Status URINALYSIS 12/08 922 Complete LIPASE 12/08 922 Complete COMPREHENSIVE METABOLIC PANEL 12/08 922 Complete CBC WITHOUT DIFFERENTIAL 12/08 922 Complete Laboratory Tests 12/08/16 1009: Urine Color YEL, Urine Clarity CLEAR, Urine pH 7.0, Ur Specific [place] 1.015, Urine Protein NEG, Urine Ketones NEG, Urine Nitrite NEG, Urine Bilirubin NEG, Urine Urobilinogen 0.2, Ur Leukocyte Esterase NEG, Ur Microscopic EXAM NOT REQUIRED, Urine Hemoglobin NEG, Urine Glucose NEG 12/08/16 0932: Anion Gap 11, Estimated GFR > 60, BUN/Creatinine Ratio 20.0, Glucose 92, Calcium 9.6, Total Bilirubin 0.7, AST 23, ALT 23, Alkaline Phosphatase 82, Total Protein 6.5, Albumin 3.9, Globulin 2.6, Albumin/Globulin Ratio 1.5, Lipase 65, CBC w Diff NO MAN DIFF REQ, RBC 4.64, MCV 89.7, MCH 30.6, RDW 14.0, MPV 7.9, Gran % 75.8 H, Lymphocytes % 16.3 L, Monocytes % 5.8, Eosinophils % 1.8, Basophils % 0.3, Absolute Granulocytes 4.4, Absolute Lymphocytes 0.9 L, Absolute Monocytes 0.3, Absolute Eosinophils 0.1, Absolute Basophils 0, PUBS MCHC 34.1 Diagnostic Imaging: Discussed w/RAD: CT Scan. Radiology Impression: PATIENT: ABA DIAZ PRESENT AGE: 76 PATIENT ACCOUNT NO: [id number] : 41 LOCATION: [facility] ORDERING PHYSICIAN: GUMARO SIMONS MD SERVICE DATE: 12/08/16 EXAM TYPE: CAT - CT ABD & PELVIS W/O IV CONTRAS EXAMINATION: CT ABDOMEN AND PELVIS WITHOUT CONTRAST CLINICAL INFORMATION: 76-year-old female with history of colon cancer, status post resection, ventral hernia repair and abdominal pain, suspected small bowel obstruction. COMPARISON: CT of the abdomen and pelvis done on 10/21/2016. TECHNIQUE: Multidetector volumetric imaging was performed from the superior aspect of the liver through the pubic symphysis. Sagittal and coronal reformatted images were obtained on the technologist's workstation. DLP: 880.67 mGy-cm FINDINGS: LUNG BASES: The visualized lung bases are unremarkable. Mild loculated pericardial effusion versus thickening is noted, unchanged. LIVER, GALLBLADDER, AND BILIARY TREE: The liver is normal in size, shape, and attenuation. No focal hepatic lesion or biliary ductal dilatation is present. The gallbladder is unremarkable with no evidence of radiopaque gallstones, gallbladder wall thickening, or obvious pericholecystic inflammatory changes. PANCREAS: Unremarkable. SPLEEN: Unremarkable. ADRENAL GLANDS: The left adrenal gland remains abnormal, measures approximately 3.0 x 1.7 cm at its maximum anteroposterior by transverse dimension with Hounsfield value of 3; given the slight subjective difference in measurement, overall appears unchanged consistent with stable left adrenal adenoma. The right adrenal gland appears unremarkable, unchanged. KIDNEYS AND URETERS: There is a 3 mm radiodensity seen projecting over the anterior inferior calyceal region of the right kidney, may represent vascular calcification versus nonobstructing calculus, unchanged. There is a 2 mm similar-appearing radiodensity seen at the lower pole of the left kidney, may also represent avascular calcification versus nonobstructing calculus, unchanged. There is a 4.1 x 2.5 cm exophytic well-circumscribed hypodense mass present with Hounsfield value of 18, appears unchanged, likely represent minimally complicated cyst. BLADDER: Unremarkable. GASTROINTESTINAL TRACT: Postsurgical changes are noted within the sigmoid colon, unchanged. The remainder of the large bowel appears unremarkable. The small bowel loops are decompressed. The stomach is decompressed where the appendix is visualized and appears unremarkable. No significant change. ABDOMINAL WALL: Previously documented, nonspecific hypodensity along the anterior abdominal wall at midline currently measures approximately 4.9 x 1.4 cm (previously measured 6.1 x 1.8 cm) below the level of the umbilicus, most consistent with resolving postoperative seroma, hematoma. No new abnormalities. LYMPH NODES: Normal. VASCULAR: Diffuse atherosclerotic changes are noted within the aorta and is branches. PELVIC VISCERA: There is no pelvic mass present. There is no free fluid and/or free air present. No significant change. OSSEOUS STRUCTURES: Moderate diffuse osteopenia and multilevel degenerative spondylosis-related changes are noted in the spine. No significant change. IMPRESSION: 1. No acute intra-abdominal and/or intrapelvic pathology is present. 2. Previously documented fluid collection along the anterior abdominal wall at midline shows interval decrease in size, consistent with resolving postoperative hematoma, seroma, etc. 3. No other significant change since 10/21/2016. DICTATED BY: GIANLUCA KEYES MD DATE/TIME DICTATED:12/08/161002 BRIM IRONER HAND:MARIANO DATE/TIME TRANSCRIBED:1002 CONFIDENTIAL, DO NOT COPY WITHOUT APPROPRIATE AUTHORIZATION. < Electronically signed in Other Vendor System> SIGNED BY: GIANLUCA KEYES MD 12/08/16 1045 Initial ED EKG: none Comments: 12/08/2016 1:10:31 PM patient wished for me to speak with Dr. Callahan regarding the fluid collection on her CAT scan. Fortunately Dr. Callahan has been occupied in the operating room. Patient can return if necessary depending on my discussion with Dr. Callahan although I suspect that there would be no emergent intervention necessary. Departure Departure Disposition: HOME OR SELF CARE Condition: Stable Clinical Impression Primary Impression: Abdominal pain Qualifiers: Abdominal location: generalized Qualified Code: R10.84 - Generalized abdominal pain Secondary Impressions: Intra-abdominal fluid collection Referrals: INA RAMOS MD (PCP/Family) Additional Instructions: Follow-up with your primary care doctor and Dr. Callahan this week for reevaluation. Return if any concerns or sudden worsening. Departure Forms: Customer Survey General Discharge Information
[2016-12-08 09:39] LABS: ABSOLUTE BASOPHIL COUNT 0 /CUMM (0.0-0.2); ABSOLUTE EOSINOPHIL COUNT 0.1 /CUMM (0.0-0.7); ABSOLUTE GRANULOCYTE CT 4.4 /CUMM (1.4-6.5); ABSOLUTE LYMPH COUNT 0.9 /CUMM (1.2-3.4); ABSOLUTE MONOCYTE COUNT 0.3 /CUMM (0.10-0.60); BASOPHIL % 0.3 % (0.0-2.0); EOSINOPHIL % 1.8 % (0-5); GRANULOCYTE % 75.8 % (42.2-75.2); HEMATOCRIT 41.6 % (37-47); MEAN CORPUSCULAR HGB 30.6 PG (27.0-31.0); MEAN CORPUSCULAR HGB CONC 34.1 G/DL (33.0-37.0); MEAN CORPUSCULAR VOLUME 89.7 FL (81.0-99.0); MEAN PLATELET VOLUME 7.9 FL (7.4-10.4); PLATELET COUNT 214 /CUMM (130-400); RED BLOOD CELL CT 4.64 /CUMM (4.20-5.40); WHITE BLOOD CELL COUNT 5.8 /CUMM (4.8-10.8)
--- NOTE | 2016-12-08 10:45 | CT SCAN REPORT ---
EXAMINATION: CT ABDOMEN AND PELVIS WITHOUT CONTRAST CLINICAL INFORMATION: 76-year-old female with history of colon cancer, status post resection, ventral hernia repair and abdominal pain, suspected small bowel obstruction. COMPARISON: CT of the abdomen and pelvis done on 10/21/2016. TECHNIQUE: Multidetector volumetric imaging was performed from the superior aspect of the liver through the pubic symphysis. Sagittal and coronal reformatted images were obtained on the technologist's workstation. DLP: 880.67 mGy-cm FINDINGS: LUNG BASES: The visualized lung bases are unremarkable. Mild loculated pericardial effusion versus thickening is noted, unchanged. LIVER, GALLBLADDER, AND BILIARY TREE: The liver is normal in size, shape, and attenuation. No focal hepatic lesion or biliary ductal dilatation is present. The gallbladder is unremarkable with no evidence of radiopaque gallstones, gallbladder wall thickening, or obvious pericholecystic inflammatory changes. PANCREAS: Unremarkable. SPLEEN: Unremarkable. ADRENAL GLANDS: The left adrenal gland remains abnormal, measures approximately 3.0 x 1.7 cm at its maximum anteroposterior by transverse dimension with Hounsfield value of 3; given the slight subjective difference in measurement, overall appears unchanged consistent with stable left adrenal adenoma. The right adrenal gland appears unremarkable, unchanged. KIDNEYS AND URETERS: There is a 3 mm radiodensity seen projecting over the anterior inferior calyceal region of the right kidney, may represent vascular calcification versus nonobstructing calculus, unchanged. There is a 2 mm similar-appearing radiodensity seen at the lower pole of the left kidney, may also represent avascular calcification versus nonobstructing calculus, unchanged. There is a 4.1 x 2.5 cm exophytic well-circumscribed hypodense mass present with Hounsfield value of 18, appears unchanged, likely represent minimally complicated cyst. BLADDER: Unremarkable. GASTROINTESTINAL TRACT: Postsurgical changes are noted within the sigmoid colon, unchanged. The remainder of the large bowel appears unremarkable. The small bowel loops are decompressed. The stomach is decompressed where the appendix is visualized and appears unremarkable. No significant change. ABDOMINAL WALL: Previously documented, nonspecific hypodensity along the anterior abdominal wall at midline currently measures approximately 4.9 x 1.4 cm (previously measured 6.1 x 1.8 cm) below the level of the umbilicus, most consistent with resolving postoperative seroma, hematoma. No new abnormalities. LYMPH NODES: Normal. VASCULAR: Diffuse atherosclerotic changes are noted within the aorta and is branches. PELVIC VISCERA: There is no pelvic mass present. There is no free fluid and/or free air present. No significant change. OSSEOUS STRUCTURES: Moderate diffuse osteopenia and multilevel degenerative spondylosis-related changes are noted in the spine. No significant change. IMPRESSION: 1. No acute intra-abdominal and/or intrapelvic pathology is present. 2. Previously documented fluid collection along the anterior abdominal wall at midline shows interval decrease in size, consistent with resolving postoperative hematoma, seroma, etc. 3. No other significant change since 10/21/2016.
[2016-12-08 13:08] VITALS: BP 140/70
== END 2016-12-08 13:22 ==
LOC: ERH 08:28
PROVIDERS: Emergency Medicine
DX: R18.8 Other ascites (principal); R10.9 Unspecified abdominal pain; R07.81 Pleurodynia
CPT/HCPCS: 74176; 81003; 96374; J2550

== ENCOUNTER 2016-12-11 08:03 | Emergency (ER) | payer OTHER, MEDICARE ==
[~2016-12-11] VITALS: Ht 162.6 cm; Wt 89.8 kg
[~2016-12-11 08:03] MED LIST changes: +AMLODIPINE BESYL5 M1 PO
--- NOTE | 2016-12-11 08:25 | ED GI/GU/ABDOMINAL COMPLAINT ---
History of Present Illness General Chief Complaint: General Adult Stated Complaint: CONSTIPATION Source: patient, old records, EMS Exam Limitations: no limitations Vital Signs & Intake/Output Vital Signs & Intake/Output Vital Signs Date Time Temp Pulse Resp B/P Pulse O2 O2 Flow FiO2 Ox Delivery Rate 12/11 1004 97.0 80 18 142/70 96 Room Air 12/11 0810 96.3 83 20 146/70 94 Room Air Room Air Allergies Coded Allergies: NO KNOWN ALLERGIES (12/07/16) Reconcile Medications Amlodipine Besylate 5 MG TABLET 1 TAB PO DAILY HEART (Reported) Magnesium Citrate (Citrate Of Magnesia) 300 ML SOLUTION 300 ML PO ONCE PRN constipation Ondansetron (Zofran Odt) 4 MG TAB.RAPDIS 1 TAB SL TID PRN nausea Triage Note: BIBA FROM HOME WITH C/O CONSTIPATION, WENT YESTERDAY AND WENT "4 PIECES THIS MORNING". PT AMBULATORY FROM EMS STRETCHER TO ROOM # 2 STRETCHER, GAIT STABLE. VITAL STABLE, AFEBRILE, PT DENIES FEVERS AT HOME. PT STATING "THIS HAS BEEN HAPPENING SINCE I HAD MY HERNIA SURGERY". Triage Nurses Notes Reviewed? yes ? n Is pt currently ? No Onset: Gradual Duration: day(s): (2), constant Timing: recent history Quality/Severity: aching, bloating Severity Numbers: 5 Location: generalized abdomen Radiation: no radiation Activities at Onset: none Prior Abdominal Problems: similar symptoms No Modifying Factors: none Associated Symptoms: denies HPI: 76-year-old female well known to this ER presents brought in by ambulance complaining of generalized abdominal bloating and seeing that she is "impacted" patient has been seen numerous times in the past for similar symptoms. She states she had a small bowel movement yesterday, and only had "4 little pieces" today. No black or bloody stools no urinary symptoms no fever no chills no nausea no vomiting. Symptoms are similar to in the past that are no associated symptoms or modifying factors no chest pain or shortness of breath patient was seen in this ER 2 days ago at which time she had an unremarkable CT of the abdomen and pelvis (JORGITO FREDERICK) Past History Travel History Traveled to [place] past 21 day No Medical History Any Pertinent Medical History? see below for history Neurological: vertigo EENT: allergies, cataracts, INNER EAR Cardiovascular: hypertension, negative stress test 2014 Respiratory: asthma, bronchitis, COPD Gastrointestinal: constipation, GERD, HERNIA, COLON RESECTION Hepatic: NONE Renal: UTI Musculoskeletal: disk herniation Psychiatric: anxiety Endocrine: NONE Blood Disorders: NONE Cancer(s): breast cancer, colon/rectal cancer BONER MEAT/Reproductive: NONE History of MRSA: No History of VRE: No History of CDIFF: No Surgical History Surgical History: hernia repair-incisional, lumpectomy (right), HERNIATED DISC, CATARACTS, COLON RESECTION Psychosocial History Who do you live with Patient/Self Services at Home Home Health Aide What is your primary language Icelandic Tobacco Use: Never used ETOH Use: denies use Illicit Drug Use: denies illicit drug use Family History Family History, If Any: MOTHER (colon cancer, stroke at age of 70s). FH: colon cancer BROTHER (Bypass Sx). FHx: melanoma Relation not specified for: FH: coronary artery bypass surgery FH: stroke Hx Contributory? No (JORGITO FREDERICK) Review of Systems Review of Systems Constitutional: Reports: no symptoms, see HPI. All Other Systems: Reviewed and Negative Comments Review of systems: See HPI, All other systems negative. Constitutional, no chills no fever, no malaise HEENT: no sore throat no congestion Cardiovascular: No chest pain , no palpitation Skin, no rashes, no change in skin Respiratory: No dyspnea no cough no sputum GI: No nausea no vomiting, no diarrhea, bloating/constipation : No dysuria No hematuria, no frequency, no discharge Muscle skeletal: No joint pain, no joint swelling, no back pain, no neck pain, Neurologic: No numbness no confusion, no headache Psych: No stress Heme/endocrine: No bruising no bleeding Immunology: No lymphadenopathy (JORGITO FREDERICK) Physical Exam Physical Exam General Appearance: well developed/nourished, alert, awake Gastrointestinal: normal bowel sounds, soft, non-tender, bowel sounds normal Comments: Well-developed well-nourished person in no acute distress HEENT: Normal EENT exam; PERRL, EOMI, . HEAD is atraumatic. moist mucous membranes. Neck: Supple, , normal range of motion Back: Nontender, no CVA tenderness. Full range of motion Cardiovascular: Regular rate and rhythms no murmurs rubs Respiratory: Chest nontender.There were no bony deformities, no asymmetry. No respiratory distress. Patient speaking in full complete sentences. Breath sounds clear to auscultation bilaterally: NO W/R/R Abdomen: Soft, nontender nondistended, no appreciable organomegaly. Normal bowel sounds. No rebound/guarding, No appreciable enlargement of the abdominal aorta, No ascites. Rectal: Nontender. no impaction, Heme negative stool. No mass/hemorrhoid, no fissure. Extremity: No edema, full range of motion of extremities Neuro: Alert oriented x3, motor sensory normal, There were no obvious focal neurologic abnormalities. Skin: No appreciable rash on exposed skin, skin is warm and dry. Psych: Mood and affect is normal, memory and judgment is normal. Core Measures ACS in differential dx? No Severe Sepsis Present: No Septic Shock Present: No (OMI JOLLY,JORGITO) Progress Differential Diagnosis: bowel obstruction, colon cancer, hernia, inflamm bowel dis, perforated viscous, SBO Plan of Care: Orders Procedure Date/time Status [id number] VIEWS 12/11 08 Active old recorsd including pts previoux ct of the abd from 12/08/16 reviewed, xray ordered. case d/w dr gilman pt amb by self to the bathroom D/W THE PT her xray results, pt given opition of enema, pt requesting mag citrate however. I was called tot he pts room- ptwants to go home, declining enema here, rx for mag citrate called in, d/w pt need for high fiber diet. cleared for dc ct 12/08/16 GASTROINTESTINAL TRACT: Postsurgical changes are noted within the sigmoid colon, unchanged. The remainder of the large bowel appears unremarkable. The small bowel loops are decompressed. The stomach is decompressed where the appendix is visualized and appears unremarkable. No significant change. ABDOMINAL WALL: Previously documented, nonspecific hypodensity along the anterior abdominal wall at midline currently measures approximately 4.9 x 1.4 cm (previously measured 6.1 x 1.8 cm) below the level of the umbilicus, most consistent with resolving postoperative seroma, hematoma. No new abnormalities. LYMPH NODES: Normal. VASCULAR: Diffuse atherosclerotic changes are noted within the aorta and is branches. PELVIC VISCERA: There is no pelvic mass present. There is no free fluid and/or free air present. No significant change. OSSEOUS STRUCTURES: Moderate diffuse osteopenia and multilevel degenerative spondylosis-related changes are noted in the spine. No significant change. IMPRESSION: 1. No acute intra-abdominal and/or intrapelvic pathology is present. 2. Previously documented fluid collection along the anterior abdominal wall at midline shows interval decrease in size, consistent with resolving postoperative hematoma, seroma, etc. 3. No other significant change since 10/21/2016. DICTATED BY: GIANLUCA KEYES MD DATE/TIME DICTATED:12/08/161002 GAS BOOSTER ENGINEER:MARIANO DATE/TIME TRANSCRIBED:12/08/161002 (JORGITO FREDERICK) Diagnostic Imaging: Viewed by Me: Radiology Read. Discussed w/RAD: Radiology Read. Radiology Impression: PATIENT: ABA DIAZ PRESENT AGE: 76 PATIENT ACCOUNT NO: [id number] : 41 LOCATION: [facility] ORDERING PHYSICIAN: JORGITO JOLLY SERVICE DATE: 12/11/16 EXAM TYPE: RAD - [id number] VIEWS EXAMINATION: XR ABDOMEN MULTIPLE VIEWS CLINICAL INDICATION: Abdominal pain and constipation. History colon cancer. Evaluate for obstruction. COMPARISON: CT of the pelvis 12/08/2016 TECHNIQUE: 3 views of the abdomen FINDINGS: There is no evidence of obstruction. A few pelvic phleboliths are noted, but otherwise no abnormal calcifications are seen. There is moderate stool throughout the colon. Mild/moderate spondylosis lumbar spine. IMPRESSION: Moderate stool in colon, but no evidence of obstruction. DICTATED BY: SHAHLA LUA MD DATE/TIME DICTATED:12/11/16900 GAS BOOSTER ENGINEER:MARIANO DATE/ TIME TRANSCRIBED:12/11/16900 CONFIDENTIAL, DO NOT COPY WITHOUT APPROPRIATE AUTHORIZATION. <Electronically signed in Other Vendor System> SIGNED BY: SHAHLA LUA MD 12/11/16906 Initial ED EKG: none (JORGITO FREDERICK) Departure Departure Disposition: HOME OR SELF CARE Condition: Stable Clinical Impression Primary Impression: Constipation Referrals: INA RAMOS MD (PCP/Family) Additional Instructions: magnesium citrate as directed, drink plenty of fluids. Departure Forms: Customer Survey General Discharge Information Prescriptions: Current Visit Scripts Magnesium Citrate (Citrate Of Magnesia) 300 ML PO ONCE PRN constipation #300 ML (JORGITO FREDERICK) PA/SALES DEVELOPMENT SPECIALIST Co-Sign Statement Statement: ED Attending supervision documentation- [X] I saw and evaluated the patient. I have also reviewed all the pertinent lab results and diagnostic results. I agree with the findings and the plan of care as documented in the PA's/SALES DEVELOPMENT SPECIALIST's documentation. [X] I have reviewed the ED Record and agree with the PA's/SALES DEVELOPMENT SPECIALIST's documentation. [] Additions or exceptions (if any) to the PAs/SALES DEVELOPMENT SPECIALIST's note and plan are summarized below: [] (SEAN MORENO,RAFITA)
--- NOTE | 2016-12-11 09:07 | RADIOLOGY REPORT ---
EXAMINATION: XR ABDOMEN MULTIPLE VIEWS CLINICAL INDICATION: Abdominal pain and constipation. History colon cancer. Evaluate for obstruction. COMPARISON: CT of the pelvis 12/08/2016 TECHNIQUE: 3 views of the abdomen FINDINGS: There is no evidence of obstruction. A few pelvic phleboliths are noted, but otherwise no abnormal calcifications are seen. There is moderate stool throughout the colon. Mild/moderate spondylosis lumbar spine. IMPRESSION: Moderate stool in colon, but no evidence of obstruction.
[2016-12-11 10:04] VITALS: BP 142/70
[2016-12-11] MEDS ORDERED: CITRATE OF MAG300 ML PO (11:02)
== END 2016-12-11 11:10 ==
LOC: ERH 08:03
DX: K59.00 Constipation, unspecified (principal)
CPT/HCPCS: 74020

== ENCOUNTER 2016-12-15 06:00 | Emergency (ER) | payer OTHER, MEDICARE ==
[~2016-12-15] VITALS: Ht 162.6 cm; Wt 86.2 kg
[~2016-12-15 06:00] MED LIST changes: +CITRATE OF MAG300 ML PO
--- NOTE | 2016-12-15 06:09 | ED GENERAL ADULT ---
See Addendum History of Present Illness General Chief Complaint: General Adult Stated Complaint: BIBA MULTIPLE COMPLAINTS Source: patient, old records, EMS Exam Limitations: no limitations Vital Signs & Intake/Output Vital Signs & Intake/Output Vital Signs Date Time Temp Pulse Resp B/P Pulse O2 O2 Flow FiO2 Ox Delivery Rate 12/15 0608 98 Room Air 12/15 601 96.7 85 18 152/69 98 Room Air Allergies Coded Allergies: NO KNOWN ALLERGIES (12/07/16) Reconcile Medications Amlodipine Besylate 5 MG TABLET 1 TAB PO DAILY HEART (Reported) Buspirone HCl 15 MG TABLET 1 TAB PO BID ANXIETY (Reported) Magnesium Citrate (Citrate Of Magnesia) 300 ML SOLUTION 300 ML PO ONCE PRN constipation Ondansetron (Zofran Odt) 4 MG TAB.RAPDIS 1 TAB SL TID PRN nausea Triage Nurses Notes Reviewed? yes HPI: Patient brought in by ambulance with complaints of feeling fuzzy and dizzy. Patient cannot describe the dizziness. Patient states that she has difficulty walking secondary to the dizziness. Patient states that she been seen in the emergency department for similar complaints multiple times. Patient is seen in the emergency department on Wednesday for constipation and was given mag citrate. Patient states she doorbells multiple times after taking the magnesium citrate. Patient denies any chest pain or shortness of breath. Patient states that she has a chronic nonproductive cough. Past History Travel History Traveled to [place] past 21 day No Medical History Any Pertinent Medical History? 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 FH: colon cancer BROTHER (Bypass Sx). FHx: melanoma Relation not specified for: FH: coronary artery bypass surgery FH: stroke Hx Contributory? No Review of Systems Review of Systems Constitutional: Reports: no symptoms. EENTM: Reports: no symptoms. Respiratory: Reports: see HPI, cough. Cardiovascular: Reports: no symptoms. GI: Reports: see HPI. Genitourinary: Reports: no symptoms. Musculoskeletal: Reports: no symptoms. Skin: Reports: no symptoms. Neurological/Psychological: Reports: no symptoms. Hematologic/Endocrine: Reports: no symptoms. Immunologic/Allergic: Reports: no symptoms. All Other Systems: Reviewed and Negative Physical Exam Physical Exam General Appearance: well developed/nourished, alert, awake, anxious, mild distress Head: atraumatic, normal appearance Eyes: Bilateral: PERRL, EOMI. Ears, Nose, Throat: normal pharynx, normal ENT inspection, hearing grossly normal Neck: normal inspection, supple, full range of motion Respiratory: normal breath sounds, chest non-tender, no respiratory distress, lungs clear Cardiovascular: regular rate/rhythm, normal peripheral pulses Gastrointestinal: normal bowel sounds, soft, non-tender, no organomegaly Back: normal inspection, normal range of motion Extremities: normal inspection, normal capillary refill, normal range of motion, no edema Neurologic/Psych: no motor/sensory deficits, awake, alert, oriented x 3, normal mood/affect Skin: intact, normal color, warm/dry Lymphatic: no anterior cervical gene Core Measures ACS in differential dx? No CVA/TIA Diagnosis: No Severe Sepsis Present: No Septic Shock Present: No Progress Differential Diagnoses I considered the following diagnoses in my evaluation of the patient: [DYSPNEA, AMI] Plan of Care: Orders Procedure Date/time Status EKG 12/15 612 Active Initial ED EKG: NSR, nonspecific ST T wave chg Prior EKG: unchanged Hand-Off Endorsed To: RAFITA ESTRADA MD Endorsed Time: 07 Pending: other (RE-EVAL) Departure Departure Disposition: HOME OR SELF CARE Condition: Stable Clinical Impression Primary Impression: Dyspnea Referrals: INA RAMOS MD (PCP/Family) Additional Instructions: RETURN FOR ANY CONCERNS Departure Forms: Customer Survey General Discharge Information Critical Care Note Critical Care Note Critical Care Time: non-applicable
[2016-12-15] MEDS ORDERED: BUSPIRONE HCL15 M1 PO (06:17)
[2016-12-15 07:31] VITALS: BP 132/85
== END 2016-12-15 07:47 ==
LOC: ERH 06:00
DX: R06.00 Dyspnea, unspecified (principal)
CPT/HCPCS: 81001; 93005; 93010

== ENCOUNTER 2017-01-15 23:01 | Emergency (ER) | payer OTHER, MEDICARE ==
[~2017-01-15 23:01] MED LIST changes: +BUSPIRONE HCL15 M1 PO
[2017-01-15 23:05] VITALS: BP 162/78
--- NOTE | 2017-01-16 01:02 | ED AMS/SEIZURE/WEAK/DIZZY ---
History of Present Illness General Chief Complaint: Dizziness Stated Complaint: BIBA WITH DIZZINESS Source: patient Exam Limitations: no limitations Vital Signs & Intake/Output Vital Signs & Intake/Output Vital Signs Date Time Temp Pulse Resp B/P Pulse O2 O2 Flow FiO2 Ox Delivery Rate 01/16 0138 Room Air 01/15 2305 98.1 88 24 162/78 96 Room Air ED Intake and Output 01/16 0000 01/15 1200 Intake Total Output Total Balance Patient 190 lb Weight Allergies Coded Allergies: NO KNOWN ALLERGIES (12/07/16) Reconcile Medications Amlodipine Besylate 5 MG TABLET 1 TAB PO DAILY HEART (Reported) Buspirone HCl 15 MG TABLET 1 TAB PO BID ANXIETY (Reported) Magnesium Citrate (Citrate Of Magnesia) 300 ML SOLUTION 300 ML PO ONCE PRN constipation Ondansetron (Zofran Odt) 4 MG TAB.RAPDIS 1 TAB SL TID PRN NAUSEA Ondansetron (Zofran Odt) 4 MG TAB.RAPDIS 1 TAB SL TID PRN nausea Triage Note: PER PT "FEELING DIZZY AND ELUALIBRIUM OFF COUGHING CANT BREATHE, CANT STAY IN TRIAGE TOO LONG Triage Nurses Notes Reviewed? yes Onset: Gradual Duration: hour(s): Timing: recent history Injury Environment: home Severity: mild Modifying Factors: Improves With: rest. Associated Symptoms: dizziness, nausea HPI: 76 yo woman h/o of hernia repair several months ago, h/o dizziness, presents with recurrence of similar symptoms. She notes, "I couldn't sleep tonight and I was feeling dizzy, just like before. " She is otherwise well. She has no abdominal pain, nausea, vomiting, diarrhea, fever, chills, chest pain. She is otherwise well. Past History Travel History Traveled to [place] past 21 day No Medical History Any Pertinent Medical History? 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 FH: colon cancer BROTHER (Bypass Sx). FHx: melanoma Relation not specified for: FH: coronary artery bypass surgery FH: stroke Hx Contributory? No Review of Systems Review of Systems Constitutional: Reports: no symptoms. EENTM: Reports: no symptoms. Respiratory: Reports: no symptoms. Cardiovascular: Reports: no symptoms. GI: Reports: no symptoms. Genitourinary: Reports: no symptoms. Musculoskeletal: Reports: no symptoms. Skin: Reports: no symptoms. Neurological/Psychological: Reports: no symptoms. Hematologic/Endocrine: Reports: no symptoms. Immunologic/Allergic: Reports: no symptoms. All Other Systems: Reviewed and Negative Physical Exam Physical Exam General Appearance: well developed/nourished, no apparent distress Head: atraumatic, normal appearance Eyes: Bilateral: normal appearance. Ears, Nose, Throat: normal pharynx, normal ENT inspection Neck: normal inspection, supple, full range of motion Respiratory: normal breath sounds, chest non-tender, no respiratory distress, quiet respiration, lungs clear Cardiovascular: regular rate/rhythm Gastrointestinal: normal bowel sounds, soft, non-tender, no organomegaly Back: normal inspection Extremities: normal range of motion Neurologic/Psych: no motor/sensory deficits, awake, alert, oriented x 3 Skin: intact, normal color, warm/dry Core Measures ACS in differential dx? No CVA/TIA Diagnosis: No Severe Sepsis Present: No Septic Shock Present: No Progress Differential Diagnosis: dizziness nos, mild dehydration, insomnia vs other. Plan of Care: upon review of patient's labs, all have been unremarkable for the past year. Initial ED EKG: normal axis, normal intervals, normal p-waves, normal QRS complex, normal sinus rhythm Departure Departure Disposition: STILL A PATIENT Condition: Stable Clinical Impression Primary Impression: Dizziness Referrals: INA RAMOS MD (PCP/Family) Departure Forms: Customer Survey General Discharge Information Prescriptions: Current Visit Scripts Ondansetron (Zofran Odt) 1 TAB SL TID PRN NAUSEA #10 TAB Comments 01/16/17, 2:23am... Upon review of labs... Her labs have been unremarkable for the past year. Her exam is benign. She is resting comfortably. 01/16/17, 4:21... ambulated well... doing well... pt safe for discharge... close follow up advised.
[2017-01-16] MEDS ORDERED: ZOFRAN ODT4 M1 SL (04:16)
== END 2017-01-16 04:18 ==
LOC: ERH 23:01
DX: R42 Dizziness and giddiness (principal)

== ENCOUNTER 2017-01-17 12:24 | Emergency (ER) | payer OTHER, MEDICARE ==
[~2017-01-17] VITALS: Ht 162.6 cm; Wt 86.2 kg
--- NOTE | 2017-01-17 12:39 | ED GENERAL ADULT ---
History of Present Illness General Chief Complaint: General Adult Stated Complaint: BIBA SOB, CP Source: patient, old records, EMS Exam Limitations: no limitations Vital Signs & Intake/Output Vital Signs & Intake/Output Vital Signs Date Time Temp Pulse Resp B/P Pulse O2 O2 Flow FiO2 Ox Delivery Rate 01/17 1432 97.2 73 18 168/73 98 Room Air 01/17 1238 98 Room Air 01/17 1232 97.3 86 18 162/66 98 Room Air Allergies Coded Allergies: NO KNOWN ALLERGIES (12/07/16) Reconcile Medications Amlodipine Besylate 5 MG TABLET 1 TAB PO DAILY HEART (Reported) Buspirone HCl 15 MG TABLET 1 TAB PO BID ANXIETY (Reported) Magnesium Citrate (Citrate Of Magnesia) 300 ML SOLUTION 300 ML PO ONCE PRN constipation Ondansetron (Zofran Odt) 4 MG TAB.RAPDIS 1 TAB SL TID PRN NAUSEA Ondansetron (Zofran Odt) 4 MG TAB.RAPDIS 1 TAB SL TID PRN nausea Triage Note: PT TO ROOM18 BIBA FROM HOME FOR C/O DIZZINESS, MILD SOB, INTERMITTENT CHEST PAIN, EPIGASTRIC PAIN 5/10, NAUSEA SINCE YESTERDAY. PT WAS SEEN HERE IN ER YESTERDAY AND WAS CLEARED FOR DC TO HOME WITH RX OF ZOFRAN. PT ARRIVED AAOx3, VSS. NO ACUTE DISTRESS NOTED. EKG IN PROGRESS. HX OF HTN,GERD,HERNIA,ASTHMA,VERTIGO. Triage Nurses Notes Reviewed? yes HPI: Patient is a 76-year-old female presents complaining of nasal congestion, clogged ear sensation, coughing, salt taste in her mouth, shortness of breath. Symptoms for several years. Symptoms are consistent with previous symptoms. Patient has been evaluated numerous times in the emergency department for similar symptoms and complaints. Patient reports she last saw her primary care doctor in September. Pain is currently 0 out of 10. Patient denies fevers. (SHAHZAD JOLLY,JUDAH) Past History Travel History Traveled to [place] past 21 day No Medical History Any Pertinent Medical History? see below for history Neurological: vertigo EENT: allergies, cataracts, INNER EAR Cardiovascular: hypertension, negative stress test 2014 Respiratory: asthma, bronchitis, COPD Gastrointestinal: constipation, GERD, HERNIA, COLON RESECTION Hepatic: NONE Renal: UTI Musculoskeletal: disk herniation Psychiatric: anxiety Endocrine: NONE Blood Disorders: NONE Cancer(s): breast cancer, colon/rectal cancer HEALTH AND PHYSICAL EDUCATION PROFESSOR/Reproductive: NONE History of MRSA: No History of VRE: No History of CDIFF: No Surgical History Surgical History: hernia repair-incisional, lumpectomy (right), HERNIATED DISC, CATARACTS, COLON RESECTION Psychosocial History Who do you live with Patient/Self Services at Home Home Health Aide What is your primary language Citizen Of [place] Tobacco Use: Never used Family History Family History, If Any: MOTHER (colon cancer, stroke at age of 70s). FH: colon cancer BROTHER (Bypass Sx). FHx: melanoma Relation not specified for: FH: coronary artery bypass surgery FH: stroke Hx Contributory? No (JUDAH ALBRECHT) Review of Systems Review of Systems Constitutional: Reports: malaise, weakness. Denies: chills, fever. EENTM: Reports: ear pain (clogged sensation), nasal congestion. Respiratory: Reports: cough, short of breath. Cardiovascular: Reports: chest pain. GI: Reports: constipation, nausea. Denies: vomiting. Genitourinary: Reports: no symptoms. Musculoskeletal: Reports: no symptoms. Skin: Reports: no symptoms. Neurological/Psychological: Reports: anxiety. Hematologic/Endocrine: Reports: no symptoms. Immunologic/Allergic: Reports: no symptoms. (JUDAH ALBRECHT) Physical Exam Physical Exam General Appearance: alert, awake, anxious Head: atraumatic, normal appearance Eyes: Bilateral: normal appearance, PERRL, EOMI. Ears, Nose, Throat: normal pharynx, normal ENT inspection, hearing grossly normal, normal tympanic membranes bilaterally Neck: normal inspection, supple, full range of motion Respiratory: normal breath sounds, chest non-tender, no respiratory distress, lungs clear Cardiovascular: regular rate/rhythm (no appreciable murmur) Gastrointestinal: soft, non-tender Back: normal inspection, normal range of motion, no vertebral tenderness Extremities: normal inspection, normal capillary refill, normal range of motion, no edema Neurologic/Psych: no motor/sensory deficits, awake, alert, oriented x 3 Skin: normal color, warm/dry Lymphatic: no anterior cervical gene Core Measures ACS in differential dx? Yes ASA ordered for poss ACS? No-ACS ruled out CVA/TIA Diagnosis: No Severe Sepsis Present: No Septic Shock Present: No (JUDAH ALBRECHT) Progress Differential Diagnoses I considered the following diagnoses in my evaluation of the patient: Anxiety, somatization disorder, allergies, bronchitis, pneumonia, acute coronary syndrome , sinusitis, GERD Plan of Care: Orders Procedure Date/time Status TROPONIN LEVEL 01/17 1246 Complete COMPREHENSIVE METABOLIC PANEL 01/17 1246 Complete CBC WITHOUT DIFFERENTIAL 01/17 1246 Complete EKG 01/17 1226 Active Laboratory Tests 01/17/17 1308: Anion Gap 9, Estimated GFR 54 L, BUN/Creatinine Ratio 19.0, Glucose 102 H, Calcium 9.2, Total Bilirubin 0.5, AST 19, ALT 25, Alkaline Phosphatase 73, Troponin I < 0.01, Total Protein 6.1 L, Albumin 3.5, Globulin 2.6, Albumin/ Globulin Ratio 1.3, CBC w Diff NO MAN DIFF REQ, RBC 4.16 L, MCV 90.8, MCH 30.2, RDW 13.9, MPV 8.5, Gran % 71.6, Lymphocytes % 17.8 L, Monocytes % 7.4, Eosinophils % 3.0, Basophils % 0.2, Absolute Granulocytes 3.6, Absolute Lymphocytes 0.9 L, Absolute Monocytes 0.4, Absolute Eosinophils 0.1, Absolute Basophils 0, PUBS MCHC 33.3 1430: Results of labs discussed with patient. Patient ambulates with steady gait. No acute neurologic abnormalities. Labs unremarkable. Patient is well- known to me, complaints and workup consistent with numerous previous evaluations. Patient appears stable for discharge. Discussed with Dr. Bernardo. (JUDAH ALBRECHT) Initial ED EKG: normal axis, normal intervals, normal p-waves, normal QRS complex, normal sinus rhythm, no ST T wave changes (JUDAH ALBRECHT) Departure Departure Time of Disposition: 3 Disposition: HOME OR SELF CARE Condition: Stable Clinical Impression Primary Impression: Cough Referrals: INA RAMOS MD (PCP/Family) Additional Instructions: Follow up with your primary doctor for further evaluation. Call tomorrow to be seen this week. Departure Forms: Customer Survey General Discharge Information (JUDAH ALBRECHT) PA/CLERICAL SECRETARY Co-Sign Statement Statement: ED Attending supervision documentation- [X] I saw and evaluated the patient. I have also reviewed all the pertinent lab results and diagnostic results. I agree with the findings and the plan of care as documented in the PA's/CLERICAL SECRETARY's documentation. [X] I have reviewed the ED Record and agree with the PA's/CLERICAL SECRETARY's documentation. [] Additions or exceptions (if any) to the PAs/CLERICAL SECRETARY's note and plan are summarized below: [] (SEAN MORENO,RAFITA) Critical Care Note Critical Care Note Critical Care Time: non-applicable (SHAHZAD JOLLY,JUDAH)
[2017-01-17 13:28] LABS: ABSOLUTE BASOPHIL COUNT 0 /CUMM (0.0-0.2); ABSOLUTE EOSINOPHIL COUNT 0.1 /CUMM (0.0-0.7); ABSOLUTE GRANULOCYTE CT 3.6 /CUMM (1.4-6.5); ABSOLUTE LYMPH COUNT 0.9 /CUMM (1.2-3.4); ABSOLUTE MONOCYTE COUNT 0.4 /CUMM (0.10-0.60); BASOPHIL % 0.2 % (0.0-2.0); GRANULOCYTE % 71.6 % (42.2-75.2); HEMATOCRIT 37.8 % (37-47); MEAN CORPUSCULAR HGB 30.2 PG (27.0-31.0); MEAN CORPUSCULAR HGB CONC 33.3 G/DL (33.0-37.0); MEAN CORPUSCULAR VOLUME 90.8 FL (81.0-99.0); MEAN PLATELET VOLUME 8.5 FL (7.4-10.4); PLATELET COUNT 185 /CUMM (130-400); RBC DISTRIBUTION WIDTH 13.9 % (11.5-14.5); RED BLOOD CELL CT 4.16 /CUMM (4.20-5.40)
[2017-01-17 14:32] VITALS: BP 168/73
== END 2017-01-17 14:44 ==
LOC: ERH 12:24
PROVIDERS: Physician Assistant
DX: R05 Cough (principal); R07.9 Chest pain, unspecified
CPT/HCPCS: 93005; 93010

== ENCOUNTER 2017-01-25 11:10 | Emergency (ER) | payer OTHER, MEDICARE ==
[~2017-01-25] VITALS: Ht 162.6 cm; Wt 86.2 kg
[2017-01-25] MEDS ORDERED: MIRALAX17 G1 PO (11:35)
[2017-01-25] MEDS ORDERED: NEXIUM40 M1 PO (11:36)
--- NOTE | 2017-01-25 11:40 | ED AMS/SEIZURE/WEAK/DIZZY ---
History of Present Illness General Chief Complaint: Abdominal Pain/Flank Pain Stated Complaint: BIBA FOR ABD PAIN Source: patient, old records Exam Limitations: no limitations Vital Signs & Intake/Output Vital Signs & Intake/Output Vital Signs Date Time Temp Pulse Resp B/P Pulse O2 O2 Flow FiO2 Ox Delivery Rate 01/25 1313 98.0 73 18 157/66 98 Room Air 01/25 1121 98 Room Air 01/25 1114 98.1 98 18 118/61 98 Room Air ED Intake and Output 01/26 0000 01/25 1200 Intake Total 1000 Output Total Balance 1000 Intake, IV 1000 Patient 190 lb Weight Allergies Coded Allergies: NO KNOWN ALLERGIES (12/07/16) Reconcile Medications Amlodipine Besylate 5 MG TABLET 1 TAB PO DAILY HEART (Reported) Buspirone HCl 15 MG TABLET 1 TAB PO BID ANXIETY (Reported) Esomeprazole (Nexium) 40 MG CAPSULE.DR 1 CAP PO DAILY GI (Reported) Lotrisone (Lotrisone Cream) 1 %-0.05 % CREAM..G. 1 MAHIN TOP QAMPM tinea apply to affected area(s) Magnesium Citrate (Citrate Of Magnesia) 300 ML SOLUTION 300 ML PO ONCE PRN constipation Meclizine HCl 25 MG TABLET 1 TAB PO TIDPRN PRN dizziness Polyethylene Glycol 3350 (Miralax) 17 GRAM POWD.PACK 1 PAC PO DAILY GI ( Reported) dissolve in water Triage Note: PT TO ROOM18 FROM HOME FOR C/O EPIGASTRIC PAIN 5/10, PT UNABLE TO DETERMINE ONSET OF PAIN, +NAUSEA, PT DENIES V/D, LAST BM TODAY WNL. PT ALSO C/O CONGESTION, DRY COUGH, AND CHEST TIGHTNESS FROM COUGHING. PT AFEBRILE, VSS. HX OF HTN,ASTHMA,GERD,VERTIGO. Triage Nurses Notes Reviewed? yes Onset: Gradual Duration: week(s): (1), intermittent, waxing and waning Timing: recent history Injury Environment: home Severity: mild, moderate Severity Numbers: 5 No Modifying Factors: none Associated Symptoms: cough HPI: 76-year-old female presents emergency room well known to this institution for similar complaints complaining of epigastric dull aching 5 out of 10 pain nonradiating associated with nonproductive cough dizziness and congestion. She is also complaining of a rash to her groin which she's had for the past few days that is itchy. No history of similar rashes in the past. No recent fall or head trauma. She states these symptoms feel similar to in the past when she was told it was anxiety. No chest pain shortness of breath. No palpitations or no modifying factors she is not taken anything for her symptoms. No fever no chills (JORGITO FREDERICK) Past History Travel History Traveled to [place] past 21 day No Medical History Any Pertinent Medical History? 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 FH: colon cancer BROTHER (Bypass Sx). FHx: melanoma Relation not specified for: FH: coronary artery bypass surgery FH: stroke Hx Contributory? No (JORGITO FREDERCIK) Review of Systems Review of Systems Constitutional: Reports: see HPI. All Other Systems: Reviewed and Negative Comments Review of systems: See HPI, All other systems negative. Constitutional, no chills no fever, no malaise HEENT: No visual changes no sore throat congestion Cardiovascular: No chest pain , no palpitation , no orthopnea no ankle swelling Skin, no jaundice rashes, no change in skin Respiratory: No dyspnea cough no sputum GI: No nausea no vomiting, no diarrhea, no bloating/constipation : No dysuria Muscle skeletal: No joint pain, no back pain, no neck pain, Neurologic: No numbness no confusion, no headache Psych: No stress . Heme/endocrine: No bruising no bleeding Immunology: No lymphadenopathy (JORGITO FREDERICK) Physical Exam Physical Exam General Appearance: well developed/nourished, no apparent distress, alert, awake Comments: Well-developed well-nourished person in no acute distress HEENT: Normal EENT exam; PERRL, EOMI, no nystagmus. HEAD is atraumatic. moist mucous membranes. Neck: Supple, no lymphadenopathy, normal range of motion Back: Nontender, no CVA tenderness. Full range of motion Cardiovascular: Regular rate and rhythms no murmurs rubs or gallops Respiratory: Chest nontender.There were no bony deformities, no asymmetry. No respiratory distress. Patient speaking in full complete sentences. Breath sounds clear to auscultation bilaterally: NO W/R/R Abdomen: Soft, nontender nondistended, no appreciable organomegaly. Normal bowel sounds. No rebound/guarding, Extremity: No edema, full range of motion of extremities Neuro: Alert oriented x3, motor sensory normal, cranial nerves II through XII grossly intact. There were no obvious focal neurologic abnormalities. Skin: Red excoriated rash noted to the suprapubic region no other rash noted exposed skin, skin is warm and dry. Psych: Mood and affect is normal, memory and judgment is normal. Core Measures ACS in differential dx? Yes CVA/TIA Diagnosis: No Severe Sepsis Present: No Septic Shock Present: No (OMI JOLLY,JORGITO) Progress Differential Diagnosis: arrythmia, CVA/stroke, dehydration, drug intoxication, electrolyte imbalance, GI bleed, hypoglycemia, intracranial Hem., meningitis, pneumonia, postural hypotension, sepsis Plan of Care: Orders Procedure Date/time Status Telemetry/Title Lawyer 01/25 1137 Active TROPONIN LEVEL 01/25 1137 Complete COMPREHENSIVE METABOLIC PANEL 01/25 1137 Complete CBC WITHOUT DIFFERENTIAL 01/25 1137 Complete EKG 01/25 1112 Active Laboratory Tests 01/25/17 1216: Anion Gap 9, Estimated GFR > 60, BUN/Creatinine Ratio 23.8, Glucose 97, Calcium 9.2, Total Bilirubin 0.4, AST 21, ALT 25, Alkaline Phosphatase 65, Troponin I < 0.01, Total Protein 6.0 L, Albumin 3.6, Globulin 2.4, Albumin/Globulin Ratio 1.5, CBC w Diff NO MAN DIFF REQ, RBC 4.06 L, MCV 89.6, MCH 30.8, RDW 14.6 H, MPV 8.2, Gran % 79.0 H, Lymphocytes % 12.1 L, Monocytes % 6.2, Eosinophils % 2.5, Basophils % 0.2, Absolute Granulocytes 4.7, Absolute Lymphocytes 0.7 L, Absolute Monocytes 0.4, Absolute Eosinophils 0.1, Absolute Basophils 0, PUBS MCHC 34.4 Labs ordered old records reviewed patient medicated with Benadryl meclizine IV fluids Patient feeling improved pending labs case discussed Dr. Bernardo agrees with plan Discussed with patient on her lab results she feels improved, she was medicated with Ativan 0.5 mg IV, I discussed with the patient at length all of their results. I had an extensive conversation regarding need for close follow up with their primary care physician this week as well as return precautions. I answered all of their questions, they feel comfortable with the plan and follow-up care. I discussed the medications that they will receive with the patient. I gave them signs and symptoms that could indicate an adverse reaction. I have advised them to limit their activities until they can see how they respond to the medication. (OMI JOLLY,JORGITO) Diagnostic Imaging: Viewed by Me: Radiology Read. Discussed w/RAD: Radiology Read. Radiology Impression: PATIENT: ABA DIAZ PRESENT AGE: 76 PATIENT ACCOUNT NO: [id number] : 41 LOCATION: [facility] ORDERING PHYSICIAN: JORGITO JOLLY SERVICE DATE: 01/25/17 EXAM TYPE: RAD - [id number] VIEW; XRY-CHEST XRAY, PA AND LATERAL EXAMINATION: XR ABDOMEN XR chest CLINICAL INDICATION: Cough. Diffuse abdominal pain and bloating. COMPARISON: Abdominal radiograph 12/11/2016. Chest radiograph 2016. TECHNIQUE: AP view of the abdomen. 2 views of the chest. FINDINGS: Chest: The lungs are well expanded. There is no focal consolidation, edema, or effusion. No pneumothorax. The cardiomediastinal silhouette is within normal limits. No acute osseous abnormality. Degenerative changes of the spine. ABDOMEN : Nonobstructive bowel gas pattern. No dilated loops of bowel. Gas and stool are seen throughout the colon. Suture line seen in the pelvis. No suspicious calcifications. Degenerative changes of the spine. IMPRESSION: 1. No acute pulmonary findings. 2. Nonobstructive bowel gas pattern. DICTATED BY: JUSTEN MORENO,ANGELINE DATE/TIME DICTATED:01/25/171203 CUP MACHINE OPERATOR: MARIANO DATE/TIME TRANSCRIBED:01/25/171203 CONFIDENTIAL, DO NOT COPY WITHOUT APPROPRIATE AUTHORIZATION. <Electronically signed in Other Vendor System> SIGNED BY: JUSTEN MORENO,ANGELINE 01/25/171208 Initial ED EKG: normal intervals, normal p-waves, normal QRS complex, normal sinus rhythm Prior EKG: unchanged Rhythm Strip: normal sinus rhythm (JORGITO FREDERICK) Departure Departure Time of Disposition: 135 Disposition: HOME OR SELF CARE Condition: Stable Clinical Impression Primary Impression: Tinea corporis Secondary Impressions: Dizziness Referrals: INA RAMOS MD (PCP/Family) Additional Instructions: Meclizine as discussed for dizziness. LotriSONE as directed apply this to the affected region. Follow-up with her primary care physician this week Departure Forms: Customer Survey General Discharge Information Prescriptions: Current Visit Scripts Lotrisone (Lotrisone Cream) 1 MAHIN TOP QAMPM #15 GM apply to affected area(s) Meclizine HCl 1 TAB PO TIDPRN PRN dizziness #15 TAB (JORGITO FREDERICK) PA/DOCUMENT RESTORER Co-Sign Statement Statement: ED Attending supervision documentation- [X] I saw and evaluated the patient. I have also reviewed all the pertinent lab results and diagnostic results. I agree with the findings and the plan of care as documented in the PA's/DOCUMENT RESTORER's documentation. [X] I have reviewed the ED Record and agree with the PA's/DOCUMENT RESTORER's documentation. [] Additions or exceptions (if any) to the PAs/DOCUMENT RESTORER's note and plan are summarized below: [] (SEAN MORENO,RAFITA)
--- NOTE | 2017-01-25 12:09 | RADIOLOGY REPORT ---
EXAMINATION: XR ABDOMEN XR chest CLINICAL INDICATION: Cough. Diffuse abdominal pain and bloating. COMPARISON: Abdominal radiograph 12/11/2016. Chest radiograph 12/07/2016. TECHNIQUE: AP view of the abdomen. 2 views of the chest. FINDINGS: Chest: The lungs are well expanded. There is no focal consolidation, edema, or effusion. No pneumothorax. The cardiomediastinal silhouette is within normal limits. No acute osseous abnormality. Degenerative changes of the spine. ABDOMEN: Nonobstructive bowel gas pattern. No dilated loops of bowel. Gas and stool are seen throughout the colon. Suture line seen in the pelvis. No suspicious calcifications. Degenerative changes of the spine. IMPRESSION: 1. No acute pulmonary findings. 2. Nonobstructive bowel gas pattern.
[2017-01-25 12:42] LABS: ABSOLUTE BASOPHIL COUNT 0 /CUMM (0.0-0.2); ABSOLUTE EOSINOPHIL COUNT 0.1 /CUMM (0.0-0.7); ABSOLUTE GRANULOCYTE CT 4.7 /CUMM (1.4-6.5); ABSOLUTE LYMPH COUNT 0.7 /CUMM (1.2-3.4); ABSOLUTE MONOCYTE COUNT 0.4 /CUMM (0.10-0.60); BASOPHIL % 0.2 % (0.0-2.0); EOSINOPHIL % 2.5 % (0-5); HEMATOCRIT 36.4 % (37-47); MEAN CORPUSCULAR HGB 30.8 PG (27.0-31.0); MEAN CORPUSCULAR HGB CONC 34.4 G/DL (33.0-37.0); MEAN CORPUSCULAR VOLUME 89.6 FL (81.0-99.0); MEAN PLATELET VOLUME 8.2 FL (7.4-10.4); PLATELET COUNT 200 /CUMM (130-400); RBC DISTRIBUTION WIDTH 14.6 % (11.5-14.5); RED BLOOD CELL CT 4.06 /CUMM (4.20-5.40)
[2017-01-25 13:13] VITALS: BP 157/66
[2017-01-25] MEDS ORDERED: MECLIZINE HCL25 MG PO (14:01)
[2017-01-25] MEDS ORDERED: LOTRISONE CREAM15 G1 TOP (14:01)
== END 2017-01-25 14:10 ==
LOC: ERH 11:10
PROVIDERS: Physician Assistant Medical
DX: B35.4 Tinea corporis (principal); R42 Dizziness and giddiness
CPT/HCPCS: 74000; 93005; 93010; 96374; 96375; J1200

== ENCOUNTER 2017-01-27 14:43 | Emergency (ER) | payer OTHER, MEDICARE ==
[~2017-01-27] VITALS: Ht 162.6 cm; Wt 86.2 kg
[~2017-01-27 14:43] MED LIST changes: +LOTRISONE CREAM15 G1 TOP; +MECLIZINE HCL25 MG PO; +NEXIUM40 M1 PO
[2017-01-27 16:39] VITALS: BP 160/70
--- NOTE | 2017-01-27 16:44 | ED GI/GU/ABDOMINAL COMPLAINT ---
See Addendum History of Present Illness General Chief Complaint: Abdominal Pain/Flank Pain Stated Complaint: ABDOMINAL PAIN Source: patient, old records Exam Limitations: no limitations Vital Signs & Intake/Output Vital Signs & Intake/Output Vital Signs Date Time Temp Pulse Resp B/P B/P Pulse O2 O2 Flow FiO2 Mean Ox Delivery Rate 01/27 1650 Room Air 01/27 1639 96.7 88 18 160/70 99 01/27 1507 98.3 87 20 151/92 100 Room Air Allergies Coded Allergies: NO KNOWN ALLERGIES (12/07/16) Reconcile Medications Amlodipine Besylate 5 MG TABLET 1 TAB PO DAILY HEART (Reported) Buspirone HCl 15 MG TABLET 1 TAB PO BID ANXIETY (Reported) Esomeprazole (Nexium) 40 MG CAPSULE.DR 1 CAP PO DAILY GI (Reported) Lotrisone (Lotrisone Cream) 1 %-0.05 % CREAM..G. 1 MAHIN TOP QAMPM tinea apply to affected area(s) Magnesium Citrate (Citrate Of Magnesia) 300 ML SOLUTION 300 ML PO ONCE PRN constipation Meclizine HCl 25 MG TABLET 1 TAB PO TIDPRN PRN dizziness Polyethylene Glycol 3350 (Miralax) 17 GRAM POWD.PACK 1 PAC PO DAILY GI ( Reported) dissolve in water Triage Note: C/O FEELING "FUZZY" AND "DIZZY" , WITH COUGH, SORE THROAT, [place], ABDOMINAL ITCHING. STATES SHE HAS A FUNGAL RASH. Triage Nurses Notes Reviewed? yes ? n Is pt currently ? No Timing: recent history Quality/Severity: aching, cramping Severity Numbers: 5 Location: generalized abdomen Radiation: no radiation Activities at Onset: none Prior Abdominal Problems: similar symptoms No Modifying Factors: none Associated Symptoms: DENIES HPI: 76-year-old female report presents to the emergency room well known to this institution for similar complaints complaining of generalized abdominal pain 5 out of 10 nonradiating associated nonproductive cough dizziness and congestion. She was seen here 2 days ago for similar symptoms with an unremarkable workup. She is also complaining that the rash her groin is pruritic. She's been applying the cream. No fevers no chills. No shortness of breath chest pain shortness of breath. There are no modifying factors or associated symptoms she has not taken anything for symptoms (OMI JOLLY,JORGITO) Past History Travel History Traveled to [place] past 21 day No Medical History Any Pertinent Medical History? see below for history Neurological: vertigo EENT: allergies, cataracts, INNER EAR Cardiovascular: hypertension, negative stress test 2014 Respiratory: asthma, bronchitis, COPD Gastrointestinal: constipation, GERD, HERNIA, COLON RESECTION Hepatic: NONE Renal: UTI Musculoskeletal: disk herniation Psychiatric: anxiety Endocrine: NONE Blood Disorders: NONE Cancer(s): breast cancer, colon/rectal cancer INTRAOPERATIVE NEURO TECH/Reproductive: NONE History of MRSA: No History of VRE: No History of CDIFF: No Surgical History Surgical History: hernia repair-incisional, lumpectomy (right), HERNIATED DISC, CATARACTS, COLON RESECTION Psychosocial History Who do you live with Patient/Self Services at Home Home Health Aide What is your primary language Bulgarian Tobacco Use: Never used ETOH Use: denies use Family History Family History, If Any: MOTHER (colon cancer, stroke at age of 70s). FH: colon cancer BROTHER (Bypass Sx). FHx: melanoma Relation not specified for: FH: coronary artery bypass surgery FH: stroke Hx Contributory? No (JORGITO FREDERICK) Review of Systems Review of Systems Constitutional: Reports: see HPI. All Other Systems: Reviewed and Negative Comments Review of systems: See HPI, All other systems negative. Constitutional, no chills no fever, no malaise HEENT: No visual changes no sore throat no congestion, no ear pain Cardiovascular: No chest pain , no palpitation Skin: See HPI Respiratory: No dyspnea no cough no sputum no hemoptysis GI: No nausea no vomiting, no diarrhea, no bloating/constipation : No dysuria No hematuria, no frequency, no discharge Muscle skeletal: No joint pain, no joint swelling, no back pain, no neck pain, Neurologic: No numbness no headache Psych: No stress no depression,. Heme/endocrine: No bruising no bleeding Immunology: No lymphadenopathy (JORGITO FREDERICK) Physical Exam Physical Exam General Appearance: well developed/nourished, alert, awake Gastrointestinal: soft Comments: Well-developed well-nourished person in no acute distress HEENT: Normal EENT exam; PERRL, EOMI, HEAD is atraumatic. moist mucous membranes. Neck: Supple, no lymphadenopathy, normal range of motion Back: Nontender, no CVA tenderness. Full range of motion Cardiovascular: Regular rate and rhythms no murmurs rubs Respiratory: Chest nontender.There were no bony deformities, no asymmetry. No respiratory distress. Patient speaking in full complete sentences. Breath sounds clear to auscultation bilaterally: NO W/R/R Abdomen: Soft, nontender nondistended, no appreciable organomegaly. Normal bowel sounds. No rebound/guarding, Extremity: No edema, full range of motion of extremities Neuro: Alert oriented x3, motor sensory normal. There were no obvious focal neurologic abnormalities. Skin: No appreciable rash on exposed skin, skin is warm and dry. Psych: Mood and affect is normal, memory and judgment is normal. Core Measures ACS in differential dx? No Severe Sepsis Present: No Septic Shock Present: No (OMI JOLLY,JORGITO) Progress Differential Diagnosis: biliary colic, bowel obstruction, colon cancer, diverticulitis, ischemic bowel, inflamm bowel dis, pancreatitis, peptic ulcer, PUD/GERD, SBO Plan of Care: Orders Procedure Date/time Status EKG 01/27 1509 Active Old records reviewed from the patient's previous visit 2 days ago including her lab work x-rays CAT scan ordered Case discussed with Dr. Bernardo Repeat evaluation patient is resting in no apparent distress I discussed with the patient at length all of their results. I had an extensive conversation regarding need for close follow up with their primary care physician this week as well as return precautions. I answered all of their questions, they feel comfortable with the plan and follow-up care. (OMI JOLLY,JORGITO) Diagnostic Imaging: Viewed by Me: CT Scan. Discussed w/RAD: CT Scan. Radiology Impression: PATIENT: ABA DIAZ PRESENT AGE: 76 PATIENT ACCOUNT NO: [id number] : 41 LOCATION: [facility] ORDERING PHYSICIAN: JORGITO JOLLY SERVICE DATE: 01/27/17 EXAM TYPE: CAT - CT ABD & PELVIS W/O IV CONTRAS EXAMINATION: CT ABDOMEN AND PELVIS WITHOUT CONTRAST CLINICAL INFORMATION: Diffuse abdominal pain. COMPARISON: Abdominal radiographs 01/25/2017. TECHNIQUE: Multidetector volumetric imaging was performed from the superior aspect of the liver through the pubic symphysis. Sagittal and coronal reformatted images were obtained on the technologist's workstation. FINDINGS: The lung bases are clear. Left lobe of the liver is again noted to be very small in size. Limited evaluation of the unenhanced spleen, gallbladder, and pancreas reveals no definite abnormality. Mild left adrenal gland thickening is stable. The kidneys are symmetric in size without evidence of hydronephrosis. A punctate nonobstructing calculus within the lower pole of the right kidney is stable. Stable appearing exophytic left renal cyst. Smaller right renal cyst is stable. There is aortoiliac atherosclerotic calcification. No aneurysm. The large and small bowel are normal in caliber without evidence of mechanical obstruction. No focal inflammatory changes adjacent to the large or the small bowel. Colonic anastomosis at the level of the sigmoid colon is redemonstrated. Moderate volume intracolonic stool. The appendix is normal. There is no free air and there is no intra-abdominal free fluid. No mesenteric or retroperitoneal adenopathy. The pelvic viscera are normal. No pelvic adenopathy. No free fluid within the pelvis. There are no acute osseous abnormalities. Multilevel degenerative disc disease and facet arthropathy throughout the lumbar spine. Redemonstrated postoperative changes following ventral abdominal wall hernia repair with stable appearing scar tissue and a stable small fluid collection subjacent to the hernia mesh. IMPRESSION: - No acute findings. No bowel obstruction. - Stable punctate nonobstructing calculus within the lower pole the right kidney. Stable large exophytic left renal cyst. - Redemonstrated postoperative changes following ventral abdominal wall hernia repair with stable appearing scar tissue and a stable small fluid collection subjacent to the hernia mesh. DICTATED BY: GUMARO MCFARLAND MD DATE/TIME DICTATED :01/27/171731 INSPECTOR FILTER TIP:MARIANO DATE/TIME TRANSCRIBED:01/27/171731 CONFIDENTIAL, DO NOT COPY WITHOUT APPROPRIATE AUTHORIZATION. < Electronically signed in Other Vendor System> SIGNED BY: GUMARO MCFARLAND MD 01/27/171743 Initial ED EKG: none (JORGITO FREDERICK) Departure Departure Time of Disposition: 1800 Disposition: HOME OR SELF CARE Condition: Stable Clinical Impression Primary Impression: Chronic abdominal pain Referrals: INA RAMOS MD (PCP/Family) Additional Instructions: Continue taking your medications as prescribed. Return with any concerns Departure Forms: Customer Survey General Discharge Information (JORGITO FREDERICK) PA/VALUE STREAM COACH Co-Sign Statement Statement: ED Attending supervision documentation- [X] I saw and evaluated the patient. I have also reviewed all the pertinent lab results and diagnostic results. I agree with the findings and the plan of care as documented in the PA's/VALUE STREAM COACH's documentation. [X] I have reviewed the ED Record and agree with the PA's/VALUE STREAM COACH's documentation. [] Additions or exceptions (if any) to the PAs/VALUE STREAM COACH's note and plan are summarized below: [] (SEAN MORENO,RAFITA)
--- NOTE | 2017-01-27 17:44 | CT SCAN REPORT ---
EXAMINATION: CT ABDOMEN AND PELVIS WITHOUT CONTRAST CLINICAL INFORMATION: Diffuse abdominal pain. COMPARISON: Abdominal radiographs 01/25/2017. TECHNIQUE: Multidetector volumetric imaging was performed from the superior aspect of the liver through the pubic symphysis. Sagittal and coronal reformatted images were obtained on the technologist's workstation. FINDINGS: The lung bases are clear. Left lobe of the liver is again noted to be very small in size. Limited evaluation of the unenhanced spleen, gallbladder, and pancreas reveals no definite abnormality. Mild left adrenal gland thickening is stable. The kidneys are symmetric in size without evidence of hydronephrosis. A punctate nonobstructing calculus within the lower pole of the right kidney is stable. Stable appearing exophytic left renal cyst. Smaller right renal cyst is stable. There is aortoiliac atherosclerotic calcification. No aneurysm. The large and small bowel are normal in caliber without evidence of mechanical obstruction. No focal inflammatory changes adjacent to the large or the small bowel. Colonic anastomosis at the level of the sigmoid colon is redemonstrated. Moderate volume intracolonic stool. The appendix is normal. There is no free air and there is no intra-abdominal free fluid. No mesenteric or retroperitoneal adenopathy. The pelvic viscera are normal. No pelvic adenopathy. No free fluid within the pelvis. There are no acute osseous abnormalities. Multilevel degenerative disc disease and facet arthropathy throughout the lumbar spine. Redemonstrated postoperative changes following ventral abdominal wall hernia repair with stable appearing scar tissue and a stable small fluid collection subjacent to the hernia mesh. IMPRESSION: - No acute findings. No bowel obstruction. - Stable punctate nonobstructing calculus within the lower pole the right kidney. Stable large exophytic left renal cyst. - Redemonstrated postoperative changes following ventral abdominal wall hernia repair with stable appearing scar tissue and a stable small fluid collection subjacent to the hernia mesh.
== END 2017-01-27 18:14 ==
LOC: ERH 14:43
DX: R10.84 Generalized abdominal pain (principal)
CPT/HCPCS: 74176; 93005; 93010

== ENCOUNTER 2017-02-04 00:56 | Emergency (ER) | payer OTHER, MEDICARE ==
--- NOTE | 2017-02-04 01:03 | ED AMS/SEIZURE/WEAK/DIZZY ---
History of Present Illness General Chief Complaint: General Adult Stated Complaint: BIBA MULTIPLE COMPLAINTS Source: patient Exam Limitations: no limitations Vital Signs & Intake/Output Vital Signs & Intake/Output Vital Signs Date Time Temp Pulse Resp B/P B/P Pulse O2 O2 Flow FiO2 Mean Ox Delivery Rate 02/04 0213 97.9 02/04 0144 97.9 76 18 122/56 97 Room Air 02/04 0106 Room Air Allergies Coded Allergies: NO KNOWN ALLERGIES (12/07/16) Reconcile Medications Amlodipine Besylate 5 MG TABLET 1 TAB PO DAILY HEART (Reported) Buspirone HCl 15 MG TABLET 1 TAB PO BID ANXIETY (Reported) Esomeprazole (Nexium) 40 MG CAPSULE.DR 1 CAP PO DAILY GI (Reported) Lotrisone (Lotrisone Cream) 1 %-0.05 % CREAM..G. 1 MAHIN TOP QAMPM tinea apply to affected area(s) Magnesium Citrate (Citrate Of Magnesia) 300 ML SOLUTION 300 ML PO ONCE PRN constipation Meclizine HCl 25 MG TABLET 1 TAB PO TIDPRN PRN dizziness Polyethylene Glycol 3350 (Miralax) 17 GRAM POWD.PACK 1 PAC PO DAILY GI ( Reported) dissolve in water Triage Nurses Notes Reviewed? yes Onset: Gradual Duration: week(s):, waxing and waning Timing: recent history Injury Environment: home Severity: mild Modifying Factors: Improves With: rest. Associated Symptoms: cough, "I have a callous on my foot." "I feel dizzy" HPI: 76 yo woman presents with multiple concerns. She notes that she had another attack of "dizziness" and took a meclizine. She also reports that she has difficulty sleeping. She noted mild upper abdominal discomfort that has resolved. She also shares the concern about her left great toe that appears to have a callous. She is worried it might be infected. She notes recurrence of a chronic cough for which she took OTC cough medicine without effect. She has no fever, chills, chest pain, nausea, vomiting, diarrhea. Past History Travel History Traveled to [place] past 21 day No Medical History Any Pertinent Medical History? see below for history Neurological: vertigo EENT: allergies, cataracts, INNER EAR Cardiovascular: hypertension, negative stress test 2014 Respiratory: asthma, bronchitis, COPD Gastrointestinal: constipation, GERD, HERNIA, COLON RESECTION Hepatic: NONE Renal: UTI Musculoskeletal: disk herniation Psychiatric: anxiety Endocrine: NONE Blood Disorders: NONE Cancer(s): breast cancer, colon/rectal cancer CONVEYOR MAN/Reproductive: NONE History of MRSA: No History of VRE: No History of CDIFF: No Surgical History Surgical History: hernia repair-incisional, lumpectomy (right), HERNIATED DISC, CATARACTS, COLON RESECTION Psychosocial History Who do you live with Patient/Self Services at Home Home Health Aide What is your primary language Northern Irish Tobacco Use: Never used Family History Family History, If Any: MOTHER (colon cancer, stroke at age of 70s). FH: colon cancer BROTHER (Bypass Sx). FHx: melanoma Relation not specified for: FH: coronary artery bypass surgery FH: stroke Hx Contributory? No Review of Systems Review of Systems Constitutional: Reports: no symptoms. EENTM: Reports: no symptoms. Respiratory: Reports: no symptoms. Cardiovascular: Reports: no symptoms. GI: Reports: no symptoms. Genitourinary: Reports: no symptoms. Musculoskeletal: Reports: no symptoms. Skin: Reports: no symptoms. Neurological/Psychological: Reports: no symptoms. Hematologic/Endocrine: Reports: no symptoms. Immunologic/Allergic: Reports: no symptoms. All Other Systems: Reviewed and Negative Physical Exam Physical Exam General Appearance: well developed/nourished, mild distress Head: atraumatic, normal appearance Eyes: Bilateral: normal appearance. Ears, Nose, Throat: normal pharynx, normal ENT inspection Neck: normal inspection, supple, full range of motion Respiratory: normal breath sounds, chest non-tender, no respiratory distress, quiet respiration, lungs clear Cardiovascular: regular rate/rhythm Gastrointestinal: normal bowel sounds, soft, non-tender, no organomegaly Back: normal inspection Extremities: left hallux with 1cm callous on plantar aspect. no sign of infection Skin: intact Lymphatic: no anterior cervical gene Core Measures ACS in differential dx? No CVA/TIA Diagnosis: No Severe Sepsis Present: No Septic Shock Present: No Progress Differential Diagnosis: dizziness, dehydration vs other. Plan of Care: Orders Procedure Date/time Status URINALYSIS 02/05 104 Complete EKG 02/05 104 Active Laboratory Tests 02/04/17 0113: Urinalysis MOD H, Urine Color YEL, Urine Clarity HAZY H, Urine pH 7.0, Ur Specific [place] 1.015, Urine Protein TRACE H, Urine Ketones NEG, Urine Nitrite NEG, Urine Bilirubin NEG, Urine Urobilinogen 0.2, Ur Leukocyte Esterase SMALL H , Ur Microscopic SEDIMENT EXAMINED, Urine RBC RARE, Urine WBC 1-3 H, Ur Epithelial Cells RARE, Urine Bacteria FEW H, Urine Mucus RARE, Urine Hemoglobin TRACE-LYSED, Urine Glucose NEG Diagnostic Imaging: Viewed by Me: CT Scan. Discussed w/RAD: CT Scan. Radiology Impression: abd/pelvic ct - 01/27/17 - no acute changes Initial ED EKG: normal axis, normal intervals, normal p-waves, normal QRS complex, normal sinus rhythm Comments: PATIENT: ABA DIAZ PRESENT AGE: 76 PATIENT ACCOUNT NO: [id number] : 41 LOCATION: ER ORDERING PHYSICIAN: JORGITO JOLLY SERVICE DATE: 01/27/17 EXAM TYPE: CAT - CT ABD & PELVIS W/O IV CONTRAS EXAMINATION: CT ABDOMEN AND PELVIS WITHOUT CONTRAST CLINICAL INFORMATION: Diffuse abdominal pain. COMPARISON: Abdominal radiographs 01/25/2017. TECHNIQUE: Multidetector volumetric imaging was performed from the superior aspect of the liver through the pubic symphysis. Sagittal and coronal reformatted images were obtained on the technologist's workstation. FINDINGS: The lung bases are clear. Left lobe of the liver is again noted to be very small in size. Limited evaluation of the unenhanced spleen, gallbladder, and pancreas reveals no definite abnormality. Mild left adrenal gland thickening is stable. The kidneys are symmetric in size without evidence of hydronephrosis. A punctate nonobstructing calculus within the lower pole of the right kidney is stable. Stable appearing exophytic left renal cyst. Smaller right renal cyst is stable. There is aortoiliac atherosclerotic calcification. No aneurysm. The large and small bowel are normal in caliber without evidence of mechanical obstruction. No focal inflammatory changes adjacent to the large or the small bowel. Colonic anastomosis at the level of the sigmoid colon is redemonstrated. Moderate volume intracolonic stool. The appendix is normal. There is no free air and there is no intra-abdominal free fluid. No mesenteric or retroperitoneal adenopathy. The pelvic viscera are normal. No pelvic adenopathy. No free fluid within the pelvis. There are no acute osseous abnormalities. Multilevel degenerative disc disease and facet arthropathy throughout the lumbar spine. Redemonstrated postoperative changes following ventral abdominal wall hernia repair with stable appearing scar tissue and a stable small fluid collection subjacent to the hernia mesh. IMPRESSION: - No acute findings. No bowel obstruction. - Stable punctate nonobstructing calculus within the lower pole the right kidney. Stable large exophytic left renal cyst. - Redemonstrated postoperative changes following ventral abdominal wall hernia repair with stable appearing scar tissue and a stable small fluid collection subjacent to the hernia mesh. DICTATED BY: GUMARO MCFARLAND MD DATE/TIME DICTATED:01/27/171731 ASSEMBLY HAND:MARIANO DATE/TIME TRANSCRIBED:01/27/171731 CONFIDENTIAL, DO NOT COPY WITHOUT APPROPRIATE AUTHORIZATION. <Electronically signed in Other Vendor System> SIGNED BY: GUMARO MCFARLAND MD 01/27/17 1328 Departure Departure Disposition: HOME OR SELF CARE Condition: Stable Clinical Impression Primary Impression: Dizziness Secondary Impressions: Callus of foot, Chronic cough Referrals: INA RAMOS MD (PCP/Family) Departure Forms: Customer Survey General Discharge Information Comments pt monitored in the ED for more than 5 hours. She slept comfortably. Labs benign for at least the last 2 years, ct scan from last week benign.... mild callous on plantar aspect of left hallux. pt given robitussin with codeine for chronic cough. She ambulates without problem. She is awake and alert and feels comfortable ambulating home. Pt safe for discharge.
[2017-02-04 01:44] VITALS: BP 122/56
== END 2017-02-04 06:19 ==
LOC: ERH 00:56
DX: L84 Corns and callosities (principal); R05 Cough; R42 Dizziness and giddiness
CPT/HCPCS: 81001; 93005; 93010

== ENCOUNTER 2017-03-03 11:07 | Emergency (ER) | payer OTHER, MEDICARE ==
[~2017-03-03] VITALS: Ht 162.6 cm; Wt 89.8 kg
--- NOTE | 2017-03-03 11:35 | ED GENERAL ADULT ---
History of Present Illness General Chief Complaint: General Adult Stated Complaint: ANXIOUS AND SPRINGY Source: patient, old records Exam Limitations: no limitations Vital Signs & Intake/Output Vital Signs & Intake/Output Vital Signs Date Time Temp Pulse Resp B/P B/P Pulse O2 O2 Flow FiO2 Mean Ox Delivery Rate 03/03 1234 98.4 88 18 134/70 97 Room Air Room Air 03/03 1205 96 03/03 1203 96 Room Air Room Air 03/03 1117 98.4 86 18 136/74 95 Room Air Allergies Coded Allergies: NO KNOWN ALLERGIES (12/07/16) Reconcile Medications Amlodipine Besylate 5 MG TABLET 1 TAB PO DAILY HEART (Reported) Azithromycin (Zithromax) 250 MG TABLET 1 DP PO AD sinusitis 2 the first day followed by 1 for days 2-5 Buspirone HCl 15 MG TABLET 1 TAB PO BID ANXIETY (Reported) Esomeprazole (Nexium) 40 MG CAPSULE.DR 1 CAP PO DAILY GI (Reported) Lotrisone (Lotrisone Cream) 1 %-0.05 % CREAM..G. 1 MAHIN TOP QAMPM tinea apply to affected area(s) Meclizine HCl 25 MG TABLET 1 TAB PO TIDPRN PRN dizziness Mometasone Furoate (Nasonex) 50 MCG SPRAY.PUMP 2 SPRAY NASB DAILY rhinitis Polyethylene Glycol 3350 (Miralax) 17 GRAM POWD.PACK 1 PAC PO DAILY GI ( Reported) dissolve in water Triage Note: PT TO ED C/O CONGESTION AND "FEELING SPRINGY". REPORTING SHE WAS SEEN AT [facility] LAST WEEK FOR THE SAME. Triage Nurses Notes Reviewed? yes Onset: Gradual Duration: week(s): (1), constant Timing: recent history Injury Environment: home Severity: mild Severity Numbers: 5 No Modifying Factors: none Associated Symptoms: cough HPI: 76-year-old female well-known to this ER presents to ER for evaluation complaining of nasal congestion and rhinorrhea bilateral ear pain and nonproductive cough that on for the past several weeks. Patient is been seen numerous times in the past for similar complaints. She denies fevers chills abdominal pain nausea vomiting or diarrhea. She states that she is intermittently constipated and her last bowel movement was a day ago. No black or bloody stools. No modifying factors she does not smoke (OMI JOLLY,JORGITO) Past History Travel History Traveled to [place] past 21 day No Medical History Any Pertinent Medical History? 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 FH: colon cancer BROTHER (Bypass Sx). FHx: melanoma Relation not specified for: FH: coronary artery bypass surgery FH: stroke Hx Contributory? No (JORGITO FREDERICK) Review of Systems Review of Systems Constitutional: Reports: see HPI. All Other Systems: Reviewed and Negative Comments Review of systems: See HPI, All other systems negative. Constitutional, no chills no fever, no malaise no weight loss HEENT: No visual changes no sore throat congestion, ear pain Cardiovascular: No chest pain , no palpitation , no orthopnea Skin: no rashes, no change in skin Respiratory: No dyspnea cough no sputum GI: No nausea no vomiting, no diarrhea, : No dysuria No hematuria, no frequency, no discharge Muscle skeletal: No joint pain, no joint swelling, no back pain, no neck pain, Neurologic: No numbness no confusion, no headache Psych: No stress no depression,. Heme/endocrine: No bruising no bleeding Immunology: No lymphadenopathy (JORGITO FREDERICK) Physical Exam Physical Exam General Appearance: well developed/nourished, no apparent distress, alert, awake Comments: Well-developed well-nourished person in no acute distress Head/Face: Atraumatic, no maxillary/frontal sinus tenderness, no facial swelling Eyes: PERRL, EOMI, no conjunctival injection. No nystagmus Ear:External auditory canal and Tympanic membranes clear, no erythema, no FB. Nose: atraumatic.Normal inspection Throat: Moist mucous membranes.Pharynx normal. No pharyngeal erythema/exudate seen. No stridor/drooling or assymetry. No swelling or edema. Neck: Supple, no lymphadenopathy, FROM Back: Nontender, Full range of motion Cardiovascular: Regular rate and rhythms no murmurs rubs Respiratory: No respiratory distress. Patient speaking in full complete sentences. Breath sounds clear to auscultation bilaterally: NO W/R/R Abdomen: Soft, nontender nondistended, no appreciable organomegaly. Normal bowel sounds. No rebound/guarding, Extremity: No edema, full range of motion of extremities Neuro: Alert oriented x3, motor sensory normal, There were no obvious focal neurologic abnormalities. Skin: No appreciable rash on exposed skin, skin is warm and dry. Psych: Mood and affect is normal, memory and judgment is normal. Core Measures ACS in differential dx? No CVA/TIA Diagnosis: No Severe Sepsis Present: No Septic Shock Present: No (JORGITO FREDERICK) Progress Differential Diagnoses I considered the following diagnoses in my evaluation of the patient: [Vertigo electrolyte abnormality dehydration anemia pneumonia bronchitis sinusitis viral syndrome Plan of Care: Orders Procedure Date/time Status AEROSOL (GEN) 03/03 1214 Complete Patient feeling improved after breathing treatment Patient has been seen numerous times in the past for similar complaints clinically appears well vitals are stable oxygen saturation within normal limits lungs are clear auscultation speaking full complete sentences I do not believe the patient requires a workup at this time which she is in agreement with after speaking with the patient she will go home with antibiotics nasal neck and magnesium citrate she feels comfortable with plan for discharge (JORGITO FREDERICK) Initial ED EKG: none (JORGITO FREDERICK) Departure Departure Time of Disposition: 1147 Disposition: HOME OR SELF CARE Condition: Stable Clinical Impression Primary Impression: Sinusitis Referrals: INA RAMOS MD (PCP/Family) Additional Instructions: zpak as directed, nasonex and mag citrate as directed. these were sent to your pharmacy. follow up with your pmd Departure Forms: Customer Survey General Discharge Information Prescriptions: Current Visit Scripts Azithromycin (Zithromax) 1 DP PO AD #6 TAB 2 the first day followed by 1 for days 2-5 Mometasone Furoate (Nasonex) 2 SPRAY NASB DAILY #1 INHAL (JORGITO FREDERICK) PA/OPERATIONS ANALYST Co-Sign Statement Statement: ED Attending supervision documentation- x I saw and evaluated the patient. I have also reviewed all the pertinent lab results and diagnostic results. I agree with the findings and the plan of care as documented in the PA's/OPERATIONS ANALYST's documentation. [] I have reviewed the ED Record and agree with the PA's/OPERATIONS ANALYST's documentation. [] Additions or exceptions (if any) to the PAs/OPERATIONS ANALYST's note and plan are summarized below: [] (TYLER MORENO,BRIAN) Critical Care Note Critical Care Note Critical Care Time: non-applicable (JORGITO FREDERICK)
[2017-03-03] MEDS ORDERED: ZITHROMAX250 M2 PO (11:50)
[2017-03-03] MEDS ORDERED: CITRATE OF MAG300 ML PO (11:50)
[2017-03-03] MEDS ORDERED: NASONEX17 GM NASB (11:50)
[2017-03-03 12:34] VITALS: BP 134/70
== END 2017-03-03 12:35 ==
LOC: ERH 11:07
DX: J32.9 Chronic sinusitis, unspecified (principal)
CPT/HCPCS: 1263; J1200; J1630

== ENCOUNTER 2017-03-05 08:27 | Emergency (ER) | payer OTHER, MEDICARE ==
[~2017-03-05 08:27] MED LIST changes: +NASONEX17 GM NASB; +ZITHROMAX250 M2 PO
[2017-03-05 08:28] VITALS: BP 187/79
--- NOTE | 2017-03-05 08:30 | ED GENERAL ADULT ---
History of Present Illness General Chief Complaint: General Adult Stated Complaint: BIBA FOR "FEELING FUZZY" Source: patient Exam Limitations: poor historian Vital Signs & Intake/Output Vital Signs & Intake/Output Vital Signs Date Time Temp Pulse Resp B/P B/P Pulse O2 O2 Flow FiO2 Mean Ox Delivery Rate 03/05 0828 96.3 95 20 187/79 98 Room Air Allergies Coded Allergies: NO KNOWN ALLERGIES (12/07/16) Reconcile Medications Amlodipine Besylate 5 MG TABLET 1 TAB PO DAILY HEART (Reported) Azithromycin (Zithromax) 250 MG TABLET 1 DP PO AD sinusitis 2 the first day followed by 1 for days 2-5 Buspirone HCl 15 MG TABLET 1 TAB PO BID ANXIETY (Reported) Esomeprazole (Nexium) 40 MG CAPSULE.DR 1 CAP PO DAILY GI (Reported) Lotrisone (Lotrisone Cream) 1 %-0.05 % CREAM..G. 1 MAHIN TOP QAMPM tinea apply to affected area(s) Meclizine HCl 25 MG TABLET 1 TAB PO TIDPRN PRN dizziness Mometasone Furoate (Nasonex) 50 MCG SPRAY.PUMP 2 SPRAY NASB DAILY rhinitis Polyethylene Glycol 3350 (Miralax) 17 GRAM POWD.PACK 1 PAC PO DAILY GI ( Reported) dissolve in water Triage Nurses Notes Reviewed? yes Onset: Abrupt Duration: day(s): Timing: recent history HPI: 03/05/17 9 am Adi is a armani 76-year-old female presents to the emergency department for ongoing cough and congestion. She also says that she has left-sided jaw pain and pain in her shoulder and her left elbow. She also complains of both constipation and diarrhea. She says she was recently started on antibiotic. The onset of the symptoms have been abrupt, the duration of the symptoms have been ongoing and intermittent times years really; the severity is significant as her symptoms required her to come to the emergency department for care. There is no fever. Past History Travel History Traveled to [place] past 21 day No Medical History Any Pertinent Medical History? 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 FH: colon cancer BROTHER (Bypass Sx). FHx: melanoma Relation not specified for: FH: coronary artery bypass surgery FH: stroke Hx Contributory? No Review of Systems Review of Systems Constitutional: Denies: fever. EENTM: Reports: no symptoms. Respiratory: Reports: cough, short of breath, sputum production. Cardiovascular: Reports: no symptoms. GI: Reports: constipation, diarrhea. Denies: abdominal pain. Genitourinary: Reports: no symptoms. Musculoskeletal: Reports: no symptoms. Skin: Denies: rash. Neurological/Psychological: Reports: tremors. Hematologic/Endocrine: Reports: no symptoms. Physical Exam Physical Exam General Appearance: alert, awake, mild distress Head: atraumatic, normal appearance Eyes: Bilateral: normal appearance, PERRL, EOMI. Ears, Nose, Throat: normal pharynx, normal ENT inspection Neck: normal inspection, supple Respiratory: normal breath sounds, chest non-tender, no respiratory distress Cardiovascular: regular rate/rhythm Gastrointestinal: soft, non-tender Back: normal range of motion Extremities: pedal edema Neurologic/Psych: no motor/sensory deficits, awake, alert, oriented x 3 Skin: intact, normal color, warm/dry Core Measures ACS in differential dx? No CVA/TIA Diagnosis: No Severe Sepsis Present: No Septic Shock Present: No Progress Differential Diagnoses I considered the following diagnoses in my evaluation of the patient: [Acute coronary syndrome, viral syndrome, bronchitis, pneumonia, anxiety related disorder] Plan of Care: Orders Procedure Date/time Status EKG 03/05 0903 Active TROPONIN LEVEL 03/05 0849 Complete D-DIMER 03/05 0849 Complete COMPREHENSIVE METABOLIC PANEL 03/05 0849 Complete CBC WITHOUT DIFFERENTIAL 03/05 0849 Complete Laboratory Tests 03/05/17 0857: Anion Gap 8, Estimated GFR > 60, BUN/Creatinine Ratio 25.0, Glucose 92, Calcium 8.7, Total Bilirubin 0.8, AST 21, ALT 37, Alkaline Phosphatase 72, Troponin I < 0.01, Total Protein 6.0 L, Albumin 3.5, Globulin 2.5, Albumin/Globulin Ratio 1.4, D-Dimer 369 H, CBC w Diff NO MAN DIFF REQ, RBC 4.37, MCV 89.4, MCH 29.9, RDW 13.7, MPV 7.7, Gran % 66.8, Lymphocytes % 22.4, Monocytes % 6.8, Eosinophils % 3.6, Basophils % 0.4, Absolute Granulocytes 2.5, Absolute Lymphocytes 0.8 L, Absolute Monocytes 0.3, Absolute Eosinophils 0.1, Absolute Basophils 0, PUBS MCHC 33.5 Initial ED EKG: NSR, pending Prior EKG: unchanged Departure Departure Disposition: STILL A PATIENT Condition: Stable Clinical Impression Primary Impression: Cough due to JESSICA inhibitor Referrals: INA RAMOS MD (PCP/Family) Departure Forms: Customer Survey General Discharge Information Comments 03/05/17 10:15 AM EKG and labs are unremarkable. Age-adjusted d-dimer is negative. The patient predominantly has nasal congestion and cough. She is being discharged home and will follow-up with her doctor on Wednesday. Critical Care Note Critical Care Note Critical Care Time: non-applicable
[2017-03-05 09:11] LABS: ABSOLUTE BASOPHIL COUNT 0 /CUMM (0.0-0.2); ABSOLUTE EOSINOPHIL COUNT 0.1 /CUMM (0.0-0.7); ABSOLUTE GRANULOCYTE CT 2.5 /CUMM (1.4-6.5); ABSOLUTE LYMPH COUNT 0.8 /CUMM (1.2-3.4); ABSOLUTE MONOCYTE COUNT 0.3 /CUMM (0.10-0.60); BASOPHIL % 0.4 % (0.0-2.0); EOSINOPHIL % 3.6 % (0-5); GRANULOCYTE % 66.8 % (42.2-75.2); MEAN CORPUSCULAR HGB 29.9 PG (27.0-31.0); MEAN CORPUSCULAR HGB CONC 33.5 G/DL (33.0-37.0); MEAN CORPUSCULAR VOLUME 89.4 FL (81.0-99.0); MEAN PLATELET VOLUME 7.7 FL (7.4-10.4); PLATELET COUNT 204 /CUMM (130-400); RBC DISTRIBUTION WIDTH 13.7 % (11.5-14.5); RED BLOOD CELL CT 4.37 /CUMM (4.20-5.40); WHITE BLOOD CELL COUNT 3.8 /CUMM (4.8-10.8)
--- NOTE | 2017-03-05 09:25 | RADIOLOGY REPORT ---
EXAMINATION: XR PORTABLE CHEST CLINICAL INFORMATION: Chest pain and shortness of breath. COMPARISON: 01/25/2017 TECHNIQUE: Portable AP view of the chest was obtained. FINDINGS: Lungs are well expanded and clear; no acute pulmonary consolidation, interstitial edema, pneumothorax or pleural effusion. Cardiac silhouette is normal in size. The mediastinal and hilar contours are normal. Bones are unremarkable. IMPRESSION: No acute cardiopulmonary abnormality.
== END 2017-03-05 10:24 ==
LOC: ERH 08:27
PROVIDERS: Emergency Medicine
DX: R05 Cough (principal)
CPT/HCPCS: 93005; 93010

== ENCOUNTER 2017-03-13 10:29 | Emergency (ER) | payer OTHER, MEDICARE ==
[~2017-03-13] VITALS: Ht 162.6 cm; Wt 89.8 kg
[2017-03-13 10:45] VITALS: BP 134/74
--- NOTE | 2017-03-13 11:40 | ED NOSE COMPLAINT ---
History of Present Illness General Chief Complaint: Upper Respiratory Sx/Fever Stated Complaint: URI Source: patient, old records Exam Limitations: poor historian Vital Signs & Intake/Output Vital Signs & Intake/Output Vital Signs Date Time Temp Pulse Resp B/P B/P Pulse O2 O2 Flow FiO2 Mean Ox Delivery Rate 03/13 1045 98.9 90 18 134/74 Allergies Coded Allergies: NO KNOWN ALLERGIES (12/07/16) Reconcile Medications Amlodipine Besylate 5 MG TABLET 1 TAB PO DAILY HEART (Reported) Azithromycin (Zithromax) 250 MG TABLET 1 DP PO AD sinusitis 2 the first day followed by 1 for days 2-5 Buspirone HCl 15 MG TABLET 1 TAB PO BID ANXIETY (Reported) Esomeprazole (Nexium) 40 MG CAPSULE.DR 1 CAP PO DAILY GI (Reported) Lotrisone (Lotrisone Cream) 1 %-0.05 % CREAM..G. 1 MAHIN TOP QAMPM tinea apply to affected area(s) Meclizine HCl 25 MG TABLET 1 TAB PO TIDPRN PRN dizziness Mometasone Furoate (Nasonex) 50 MCG SPRAY.PUMP 2 SPRAY NASB DAILY rhinitis Polyethylene Glycol 3350 (Miralax) 17 GRAM POWD.PACK 1 PAC PO DAILY GI ( Reported) dissolve in water Triage Note: PT TO ED FOR STUFFY NOSE AND TO "SEE DR MONTGOMERY". Triage Nurses Notes Reviewed? yes HPI: 76F WITH COMPLAINTS OF STUFFY NOSE, NO DISCHARGE, AFEBRILE, ALSO COMPLAINS OF RIGHT SHOULDER PAIN. DENIES HEADACHE, VISION CHANGES, EAR PAIN, SORE THROAT, CHEST PAIN, SOB, ABD PAIN, DIARRHEA, DYSURIA. Past History Travel History Traveled to [place] past 21 day No Medical History Any Pertinent Medical History? 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 FH: colon cancer BROTHER (Bypass Sx). FHx: melanoma Relation not specified for: FH: coronary artery bypass surgery FH: stroke Hx Contributory? No Review of Systems Review of Systems Constitutional: Reports: see HPI. EENTM: Reports: see HPI. Respiratory: Reports: no symptoms. Cardiovascular: Reports: no symptoms. GI: Reports: no symptoms. Genitourinary: Reports: no symptoms. Musculoskeletal: Reports: see HPI. Skin: Reports: no symptoms. Neurological/Psychological: Reports: anxiety. Hematologic/Endocrine: Reports: no symptoms. Immunologic/Allergic: Reports: no symptoms. All Other Systems: Reviewed and Negative Physical Exam Physical Exam General Appearance: well developed/nourished, no apparent distress Head: atraumatic, normal appearance Ears: Bilateral: canal normal. Nose: normal inspection Mouth/Throat: normal mouth inspection, pharynx normal Neck: normal inspection, supple Cardiovascular/Respiratory: normal breath sounds, normal peripheral pulses, regular rate/rhythm Gastrointestinal: NORMAL Back: normal inspection Neurologic/Psych: no motor/sensory deficits Progress Differential Diagnoses I considered the following diagnoses in my evaluation of the patient: SINUSITIS, HEADACHE, PHARYNGITIS, URI Plan of Care: Current Medications Sig/Liz Start time Last Medication Dose Stop Time Status Admin Oxymetazoline HCl 2 SPRAY ONCE ONE 03/13 1130 UNVr (Afrin) 03/13 1131 Initial ED EKG: none Departure Departure Time of Disposition: 113 Disposition: ER WALKOUT Condition: Stable Clinical Impression Primary Impression: Chronic sinusitis Referrals: INA RAMOS MD (PCP/Family) Additional Instructions: CONTINUE NASONEX, FOLLOW UP WITH PCP Departure Forms: Customer Survey General Discharge Information
== END 2017-03-13 11:41 ==
LOC: ERH 10:29
DX: J32.9 Chronic sinusitis, unspecified (principal)

== ENCOUNTER 2017-03-21 16:22 | Emergency (ER) | payer OTHER, MEDICARE ==
[~2017-03-21] VITALS: Ht 162.6 cm; Wt 86.2 kg
--- NOTE | 2017-03-21 16:49 | ED AMS/SEIZURE/WEAK/DIZZY ---
History of Present Illness General Chief Complaint: Dyspnea (COPD, CHF, Other) Stated Complaint: SOB Source: patient Exam Limitations: no limitations Vital Signs & Intake/Output Vital Signs & Intake/Output Vital Signs Date Time Temp Pulse Resp B/P B/P Pulse O2 O2 Flow FiO2 Mean Ox Delivery Rate 03/21 1735 97.0 80 22 138/78 96 Room Air 03/21 1711 97 03/21 1637 97 Room Air 03/21 1628 98.2 94 18 152/85 98 Room Air Allergies Coded Allergies: NO KNOWN ALLERGIES (12/07/16) Reconcile Medications Amlodipine Besylate 5 MG TABLET 1 TAB PO DAILY HEART (Reported) Azithromycin (Zithromax) 250 MG TABLET 1 DP PO AD sinusitis 2 the first day followed by 1 for days 2-5 Buspirone HCl 15 MG TABLET 1 TAB PO BID ANXIETY (Reported) Esomeprazole (Nexium) 40 MG CAPSULE.DR 1 CAP PO DAILY GI (Reported) Lotrisone (Lotrisone Cream) 1 %-0.05 % CREAM..G. 1 MAHIN TOP QAMPM tinea apply to affected area(s) Meclizine HCl 25 MG TABLET 1 TAB PO TIDPRN PRN dizziness Mometasone Furoate (Nasonex) 50 MCG SPRAY.PUMP 2 SPRAY NASB DAILY rhinitis Polyethylene Glycol 3350 (Miralax) 17 GRAM POWD.PACK 1 PAC PO DAILY GI ( Reported) dissolve in water Triage Note: 76 YO FEAMLE TO ER C/O SHORTNESS OF BREATH AND "FELT LIKE I WAS GOING TO HAVE A SYNCOPLE EPISODE" PER EMS PTS HOUSE IS VERY HOT D/T PT NOT HAVING AIR CONDITONER AT THIS TIME. PT TAKEN FOR EKG ON ARRIVAL Triage Nurses Notes Reviewed? yes Onset: Abrupt Duration: hour(s): Timing: recent history Injury Environment: home Severity: moderate, severe No Modifying Factors: none HPI: 76-year-old female comes into emergency room for complaints of feeling fuzzy in her head and her apartment was too hot. Patient reports that she felt like she was going to pass out. She says it was extremely hot in her apartment. Denies any fever or chills. Denies any vomiting. Persistent cough for many months. Patient was seen at [facility] last week and had a normal chest x-ray. Denies any other associated symptoms. (TIARAREBA PEREZ) Past History Travel History Traveled to [place] past 21 day No Medical History Any Pertinent Medical History? 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 FH: colon cancer BROTHER (Bypass Sx). FHx: melanoma Relation not specified for: FH: coronary artery bypass surgery FH: stroke Hx Contributory? No (REBA BIGGS) Review of Systems Review of Systems Constitutional: Reports: no symptoms. EENTM: Reports: no symptoms. Respiratory: Reports: see HPI. Cardiovascular: Reports: see HPI. GI: Reports: no symptoms. Genitourinary: Reports: no symptoms. Musculoskeletal: Reports: no symptoms. Skin: Reports: no symptoms. Neurological/Psychological: Reports: no symptoms. Hematologic/Endocrine: Reports: no symptoms. Immunologic/Allergic: Reports: no symptoms. All Other Systems: Reviewed and Negative (REBA BIGGS) Physical Exam Physical Exam General Appearance: well developed/nourished, alert, awake Head: atraumatic, normal appearance Eyes: Bilateral: normal appearance. Ears, Nose, Throat: normal ENT inspection Neck: normal inspection Respiratory: normal breath sounds, no respiratory distress Cardiovascular: regular rate/rhythm Gastrointestinal: soft, non-tender Back: normal range of motion Extremities: normal range of motion Neurologic/Psych: awake, alert, oriented x 3 Skin: intact, normal color Core Measures ACS in differential dx? Yes CVA/TIA Diagnosis: No Severe Sepsis Present: No Septic Shock Present: No (REBA BIGGS) Progress Differential Diagnosis: arrythmia, alcohol intoxication, benign positional vertigo, CVA/stroke, dehydration, drug intoxication, electrolyte imbalance, GI bleed, intracranial Hem., intracranial mass/tumor, multiple sclerosis, pneumonia , postural hypotension, presyncope, post-traumatic vertigo, sepsis, seizure disorder Plan of Care: Orders Procedure Date/time Status EKG 03/21 1626 Active Initial ED EKG: normal intervals, normal p-waves, normal sinus rhythm, rate (98) (REBA BIGGS) Departure Departure Disposition: HOME OR SELF CARE Condition: Stable Clinical Impression Primary Impression: Dizziness Secondary Impressions: Near syncope Referrals: INA RAMOS MD (PCP/Family) Additional Instructions: Please go over all results of today's visit with your primary care doctor. Contact your primary care doctor to let them know you were here in the emergency room. There may be nonspecific findings which may not be related to your visit today here in the emergency room but may require further evaluation and chronic monitoring by your primary care doctor. If you had a laceration today the chance of foreign body always remains. You should follow-up with your primary care doctor for recheck in 3-5 days for a wound check. If you had an x-ray done there is a chance that a fracture could have been missed on initial read and you should follow-up with your primary care doctor for repeat x-rays if symptoms persist. If your blood pressure was elevated here in the emergency room please have rechecked by her primary care doctor within the next 48 hours by your primary care doctor. If you were prescribed a narcotic here in the emergency room or any type of controlled substances you're not allowed to drive while taking this medication or operate any type of heavy machinery. Narcotics can make you feel lightheaded dizziness nausea and can cause constipation. You may need to burr picker a stool softener. Thank you for choosing [facility] emergency room. Please return to the emergency room immediately if you have any other concerns worsening of symptoms. Departure Forms: Customer Survey General Discharge Information Comments Patient clinically looks well. In no apparent distress. Nontoxic appearing. Seen here many times for same symptoms in the past. Patient requested a breathing treatment. At this time patient can follow-up with her primary care doctor. Return if any other concerns worsening symptoms. Patient clinically looks well on discharge. Patient declined any discharge instructions. (REBA BIGGS) PA/HOME DELIVERY DRIVER Co-Sign Statement Statement: ED Attending supervision documentation- [X] I saw and evaluated the patient. I have also reviewed all the pertinent lab results and diagnostic results. I agree with the findings and the plan of care as documented in the PA's/HOME DELIVERY DRIVER's documentation. [X] I have reviewed the ED Record and agree with the PA's/HOME DELIVERY DRIVER's documentation. [] Additions or exceptions (if any) to the PAs/HOME DELIVERY DRIVER's note and plan are summarized below: [] (MARISOL MORENO,SUDARSHAN Maciel)
[2017-03-21 17:35] VITALS: BP 138/78
== END 2017-03-21 17:58 ==
LOC: ERH 16:22
DX: R42 Dizziness and giddiness (principal); R55 Syncope and collapse
CPT/HCPCS: 1263; 74176; 81001; 93005; 93010; 96360

== ENCOUNTER 2017-03-21 23:01 | Emergency (ER) | payer OTHER, MEDICARE ==
[~2017-03-21] VITALS: Ht 162.6 cm; Wt 86.2 kg
--- NOTE | 2017-03-21 23:04 | ED GENERAL ADULT ---
See Addendum History of Present Illness General Chief Complaint: Abdominal Pain/Flank Pain Stated Complaint: ABD PAIN Source: patient Exam Limitations: no limitations Vital Signs & Intake/Output Vital Signs & Intake/Output Vital Signs Date Time Temp Pulse Resp B/P B/P Pulse O2 O2 Flow FiO2 Mean Ox Delivery Rate 03/22 0221 97.0 72 18 143/65 99 Room Air 03/21 2355 98 Room Air 03/21 2306 97.5 98 18 169/77 98 Room Air ED Intake and Output 03/22 0000 03/21 1200 Intake Total 0 Output Total Balance 0 Intake, Oral 0 Patient 190 lb Weight Weight Reported by Patient Measurement Method Allergies Coded Allergies: NO KNOWN ALLERGIES (12/07/16) Reconcile Medications Amlodipine Besylate 5 MG TABLET 1 TAB PO DAILY HEART (Reported) Azithromycin (Zithromax) 250 MG TABLET 1 DP PO AD sinusitis 2 the first day followed by 1 for days 2-5 Buspirone HCl 15 MG TABLET 1 TAB PO BID ANXIETY (Reported) Esomeprazole (Nexium) 40 MG CAPSULE.DR 1 CAP PO DAILY GI (Reported) Lotrisone (Lotrisone Cream) 1 %-0.05 % CREAM..G. 1 MAHIN TOP QAMPM tinea apply to affected area(s) Meclizine HCl 25 MG TABLET 1 TAB PO TIDPRN PRN dizziness Mometasone Furoate (Nasonex) 50 MCG SPRAY.PUMP 2 SPRAY NASB DAILY rhinitis Polyethylene Glycol 3350 (Miralax) 17 GRAM POWD.PACK 1 PAC PO DAILY GI ( Reported) dissolve in water Triage Nurses Notes Reviewed? yes Onset: Gradual Duration: day(s): Timing: recent history Injury Environment: home Severity: mild, moderate Modifying Factors: Improves With: rest. Worsens With: movement. Associated Symptoms: abdominal pain HPI: 76-year-old woman presents with right lower quadrant abdominal pain. She was here several hours ago reporting that her apartment did not have any air- conditioning. She states that she felt hot and weak and, "dizzy all over." This evening she developed right lower quadrant crampy sharp abdominal pain. She denies nausea, vomiting, diarrhea, dysuria or vaginal discharge, fever, chills, chest pain. Past History Travel History Traveled to [place] past 21 day No Medical History Any Pertinent Medical History? 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 FH: colon cancer BROTHER (Bypass Sx). FHx: melanoma Relation not specified for: FH: coronary artery bypass surgery FH: stroke Hx Contributory? No Review of Systems Review of Systems Constitutional: Reports: no symptoms. EENTM: Reports: no symptoms. Respiratory: Reports: no symptoms. Cardiovascular: Reports: no symptoms. GI: Reports: no symptoms. Genitourinary: Reports: no symptoms. Musculoskeletal: Reports: no symptoms. Skin: Reports: no symptoms. Neurological/Psychological: Reports: no symptoms. Hematologic/Endocrine: Reports: no symptoms. Immunologic/Allergic: Reports: no symptoms. All Other Systems: Reviewed and Negative Physical Exam Physical Exam General Appearance: well developed/nourished, mild distress Head: atraumatic, normal appearance Eyes: Bilateral: normal appearance. Ears, Nose, Throat: normal pharynx, normal ENT inspection Neck: normal inspection, supple, full range of motion Respiratory: normal breath sounds, chest non-tender, no respiratory distress, quiet respiration, lungs clear Cardiovascular: regular rate/rhythm Gastrointestinal: normal bowel sounds, soft, Right lower quadrant tenderness to palpation. No rebound or guarding Extremities: normal inspection Neurologic/Psych: no motor/sensory deficits, awake, alert, oriented x 3 Skin: intact, normal color, warm/dry Core Measures ACS in differential dx? No CVA/TIA Diagnosis: No Severe Sepsis Present: No Septic Shock Present: No Progress Differential Diagnoses I considered the following diagnoses in my evaluation of the patient: Diverticulitis versus appendicitis versus uti vs other. Plan of Care: Orders Procedure Date/time Status Heart Healthy Diet 03/22 B Active CASE MANAGEMENT CONSULT 03/22 143 Active Add-on Test (ER Only) 03/22 142 Active EKG 03/22 142 Active TROPONIN LEVEL 03/21 2345 Complete URINALYSIS 03/21 2310 Complete LIPASE 03/21 2310 Complete HEPATIC FUNCTION PANEL 03/21 2310 Complete CBC WITHOUT DIFFERENTIAL 03/21 2310 Complete BASIC METABOLIC PANEL 03/21 2310 Complete AMYLASE 03/21 2310 Complete CASE MANAGEMENT CONSULT 03/21 2310 Active Laboratory Tests 03/22/17 0045: Urine Color YEL, Urine Clarity CLEAR, Urine pH 6.0, Ur Specific [place] 1.015, Urine Protein NEG, Urine Ketones NEG, Urine Nitrite NEG, Urine Bilirubin NEG, Urine Urobilinogen 0.2, Ur Leukocyte Esterase SMALL H, Ur Microscopic SEDIMENT EXAMINED, Urine RBC RARE, Urine WBC 3-5 H, Ur Epithelial Cells FEW, Urine Bacteria RARE H, Urine Mucus RARE, Urine Hemoglobin TRACE-LYSED, Urine Glucose NEG 03/21/17 2345: Anion Gap 8, Estimated GFR > 60, BUN/Creatinine Ratio 25.6 H, Glucose 107 H, Calcium 8.8, Total Bilirubin 0.3, Direct Bilirubin 0.2, AST 23, ALT 27, Alkaline Phosphatase 117, Troponin I < 0.01, Total Protein 6.0 L, Albumin 3.4 L, Amylase 79, Lipase 115, CBC w Diff NO MAN DIFF REQ, RBC 3.96 L, MCV 90.6, MCH 30.1, RDW 13.7, MPV 8.0, Gran % 62.5, Lymphocytes % 24.4, Monocytes % 8.8, Eosinophils % 4.1, Basophils % 0.2, Absolute Granulocytes 2.9, Absolute Lymphocytes 1.1 L, Absolute Monocytes 0.4, Absolute Eosinophils 0.2, Absolute Basophils 0, PUBS MCHC 33.2 Diagnostic Imaging: Viewed by Me: Radiology Read, CT Scan. Discussed w/RAD: Radiology Read, CT Scan. Radiology Impression: abd/pelvic ct... no acute disease... full report below. CXR Impression: no acute abnormality, no infiltrates, normal size heart, normal mediastinum Initial ED EKG: normal axis, normal intervals, normal p-waves, normal QRS complex, normal sinus rhythm Hand-Off Endorsed To: RAFITA GILMAN MD Endorsed Time: 0700 Pending: consult Comments: PATIENT: ABA DIAZ PRESENT AGE: 76 PATIENT ACCOUNT NO: [id number] : 41 LOCATION: [facility] ORDERING PHYSICIAN: ARMANDO GOYAL MD SERVICE DATE: 03/21/17 EXAM TYPE: CAT - CT ABD & PELVIS W/O IV CONTRAS EXAMINATION: CT ABDOMEN AND PELVIS WITHOUT CONTRAST CLINICAL INFORMATION: Right lower quadrant pain COMPARISON: 01/27/2017 TECHNIQUE: Multidetector volumetric imaging was performed from the superior aspect of the liver through the pubic symphysis. Sagittal and coronal reformatted images were obtained on the technologist's workstation. DLP: 871.53 mGy-cm FINDINGS: LUNG BASES: The visualized lung bases are unremarkable. LIVER, GALLBLADDER, AND BILIARY TREE: The liver is normal in size, shape, and attenuation. No focal hepatic lesion or biliary ductal dilatation is present. The gallbladder appears contracted and is suboptimally evaluated. PANCREAS: Unremarkable. SPLEEN: Unremarkable. ADRENAL GLANDS: Unremarkable. KIDNEYS AND URETERS: There is an exophytic left lower pole renal cyst measuring approximately 4.1 cm in diameter. No hydronephrosis or ureteral calculi bilaterally. There is a redemonstrated 0.2 cm right lower pole renal calculus. BLADDER: Unremarkable. GASTROINTESTINAL TRACT: Suture line is present in the region of the sigmoid colon. No evidence of bowel obstruction. No abnormal bowel wall thickening is seen. The appendix is collapsed. No free fluid or free air is seen. ABDOMINAL WALL: Redemonstrated postoperative changes in the anterior abdominal wall. LYMPH NODES: Normal. VASCULAR: There is atherosclerotic calcification along the aorta. PELVIC VISCERA: Unremarkable. OSSEOUS STRUCTURES: Degenerative changes are noted in the spine. IMPRESSION: 1. No acute findings identified in the abdomen/pelvis. Normal appendix. 2. Redemonstrated tiny right lower pole renal calculus without hydronephrosis. DICTATED BY: AURELIANO CORDOBA MD DATE/TIME DICTATED:03/21/172352 COATING MIXER:MARIANO DATE/TIME TRANSCRIBED:03/21/172352 CONFIDENTIAL, DO NOT COPY WITHOUT APPROPRIATE AUTHORIZATION. <Electronically signed in Other Vendor System> SIGNED BY: AURELIANO CORDOBA MD 03/22/17 0004 PATIENT: ABA DIAZ PRESENT AGE: 76 PATIENT ACCOUNT NO: [id number] : 41 LOCATION: [facility] ORDERING PHYSICIAN: ARMANDO GOYAL MD SERVICE DATE: 03/21/17 EXAM TYPE: RAD - XRY-PORTABLE CHEST XRAY EXAMINATION: XR PORTABLE CHEST CLINICAL INFORMATION: Cough COMPARISON: 03/05/2017 TECHNIQUE: Portable frontal view of the chest was obtained. FINDINGS: The lungs are clear with no focal consolidation. No evidence of pneumothorax, pulmonary edema, or pleural effusions. The cardiomediastinal silhouette is unremarkable. No acute osseous findings. IMPRESSION: No acute cardiopulmonary findings. DICTATED BY: AURELIANO CORDOBA MD DATE/TIME DICTATED:03/21/172349 COATING MIXER:MARIANO DATE/TIME TRANSCRIBED:03/21/172349 CONFIDENTIAL, DO NOT COPY WITHOUT APPROPRIATE AUTHORIZATION. <Electronically signed in Other Vendor System> SIGNED BY: AURELIANO CORDOBA MD 03/21/17 0639 Departure Departure Disposition: STILL A PATIENT Condition: Stable Clinical Impression Primary Impression: Abdominal pain Referrals: INA RAMOS MD (PCP/Family) Departure Forms: Customer Survey General Discharge Information Comments case management consult in the AM. pt signed out to dr. gilman. Critical Care Note Critical Care Note Critical Care Time: non-applicable
--- NOTE | 2017-03-21 23:55 | RADIOLOGY REPORT ---
EXAMINATION: XR PORTABLE CHEST CLINICAL INFORMATION: Cough COMPARISON: 03/05/2017 TECHNIQUE: Portable frontal view of the chest was obtained. FINDINGS: The lungs are clear with no focal consolidation. No evidence of pneumothorax, pulmonary edema, or pleural effusions. The cardiomediastinal silhouette is unremarkable. No acute osseous findings. IMPRESSION: No acute cardiopulmonary findings.
[2017-03-22 00:04] LABS: ABSOLUTE BASOPHIL COUNT 0 /CUMM (0.0-0.2); ABSOLUTE EOSINOPHIL COUNT 0.2 /CUMM (0.0-0.7); ABSOLUTE GRANULOCYTE CT 2.9 /CUMM (1.4-6.5); ABSOLUTE LYMPH COUNT 1.1 /CUMM (1.2-3.4); ABSOLUTE MONOCYTE COUNT 0.4 /CUMM (0.10-0.60); BASOPHIL % 0.2 % (0.0-2.0); EOSINOPHIL % 4.1 % (0-5); GRANULOCYTE % 62.5 % (42.2-75.2); HEMATOCRIT 35.8 % (37-47); MEAN CORPUSCULAR HGB 30.1 PG (27.0-31.0); MEAN CORPUSCULAR HGB CONC 33.2 G/DL (33.0-37.0); MEAN CORPUSCULAR VOLUME 90.6 FL (81.0-99.0); PLATELET COUNT 189 /CUMM (130-400); RBC DISTRIBUTION WIDTH 13.7 % (11.5-14.5); RED BLOOD CELL CT 3.96 /CUMM (4.20-5.40); WHITE BLOOD CELL COUNT 4.7 /CUMM (4.8-10.8)
--- NOTE | 2017-03-22 00:04 | CT SCAN REPORT ---
EXAMINATION: CT ABDOMEN AND PELVIS WITHOUT CONTRAST CLINICAL INFORMATION: Right lower quadrant pain COMPARISON: 01/27/2017 TECHNIQUE: Multidetector volumetric imaging was performed from the superior aspect of the liver through the pubic symphysis. Sagittal and coronal reformatted images were obtained on the technologist's workstation. DLP: 871.53 mGy-cm FINDINGS: LUNG BASES: The visualized lung bases are unremarkable. LIVER, GALLBLADDER, AND BILIARY TREE: The liver is normal in size, shape, and attenuation. No focal hepatic lesion or biliary ductal dilatation is present. The gallbladder appears contracted and is suboptimally evaluated. PANCREAS: Unremarkable. SPLEEN: Unremarkable. ADRENAL GLANDS: Unremarkable. KIDNEYS AND URETERS: There is an exophytic left lower pole renal cyst measuring approximately 4.1 cm in diameter. No hydronephrosis or ureteral calculi bilaterally. There is a redemonstrated 0.2 cm right lower pole renal calculus. BLADDER: Unremarkable. GASTROINTESTINAL TRACT: Suture line is present in the region of the sigmoid colon. No evidence of bowel obstruction. No abnormal bowel wall thickening is seen. The appendix is collapsed. No free fluid or free air is seen. ABDOMINAL WALL: Redemonstrated postoperative changes in the anterior abdominal wall. LYMPH NODES: Normal. VASCULAR: There is atherosclerotic calcification along the aorta. PELVIC VISCERA: Unremarkable. OSSEOUS STRUCTURES: Degenerative changes are noted in the spine. IMPRESSION: 1. No acute findings identified in the abdomen/pelvis. Normal appendix. 2. Redemonstrated tiny right lower pole renal calculus without hydronephrosis.
[2017-03-22 04:47] VITALS: BP 142/62
== END 2017-03-22 04:53 | disposition left against medical advice (07) ==
LOC: ERH 23:01
PROVIDERS: Pediatrics
DX: R10.31 Right lower quadrant pain (principal)
CPT/HCPCS: 74176; 81001; 93005; 93010; 96360

== ENCOUNTER 2017-03-30 22:55 | Emergency (ER) | payer OTHER, MEDICARE ==
[2017-03-31] MEDS ORDERED: VENTOLIN HFA18 GM INH (00:18)
--- NOTE | 2017-03-31 00:25 | ED GENERAL ADULT ---
History of Present Illness General Chief Complaint: General Adult Stated Complaint: BIBA WITH SOB OF PAIN LT ARM PAIN Source: patient, old records, EMS Exam Limitations: no limitations Vital Signs & Intake/Output Vital Signs & Intake/Output Vital Signs Date Time Temp Pulse Resp B/P B/P Pulse O2 O2 Flow FiO2 Mean Ox Delivery Rate 03/31 0125 98.0 88 20 118/78 94 Room Air 03/30 2316 97.7 86 16 129/73 86 Room Air Allergies Coded Allergies: NO KNOWN ALLERGIES (12/07/16) Reconcile Medications Albuterol Sulfate (Ventolin Hfa) 90 MCG HFA.AER.AD 2 PUF INH Q4-6 PRN PRN RESPIRATORY (Reported) Amlodipine Besylate 5 MG TABLET 1 TAB PO DAILY HEART (Reported) Azithromycin (Zithromax) 250 MG TABLET 1 DP PO AD sinusitis 2 the first day followed by 1 for days 2-5 Buspirone HCl 15 MG TABLET 1 TAB PO BID ANXIETY (Reported) Esomeprazole (Nexium) 40 MG CAPSULE.DR 1 CAP PO DAILY GI (Reported) Lotrisone (Lotrisone Cream) 1 %-0.05 % CREAM..G. 1 MAHIN TOP QAMPM tinea apply to affected area(s) Meclizine HCl 25 MG TABLET 1 TAB PO TIDPRN PRN dizziness Mometasone Furoate (Nasonex) 50 MCG SPRAY.PUMP 2 SPRAY NASB DAILY rhinitis Polyethylene Glycol 3350 (Miralax) 17 GRAM POWD.PACK 1 PAC PO DAILY GI ( Reported) dissolve in water Triage Note: BIBA AND REFUSING TO TALK TO THIS RN. "I DON'T NEED TO TELL YOU WHAT'S WRONG, IM HERE BECAUSE IM HERE! I DON'T FEEL GOOD. MY LEFT ARM HURTS. I'M GOING HOME". PT WELL KNOWN TO . APPEARS AAOX3 AND STABLE. Triage Nurses Notes Reviewed? yes HPI: Patient brought in by ambulance for left arm pain that she has been experiencing for over a month. The pain is constant. The pain is an achy pain in her left shoulder and becomes a burning pain as it radiates down her entire arm. The pain is constant for the past few weeks. There are no aggravating or mitigating factors. She cannot rate the pain other than stating that it hurts and she knows that she is not crazy. Patient denies any weakness or numbness. Patient has been seen in the emergency department multiple times. Patient denies any chest pain or shortness of breath. There is no nausea or vomiting. Patient states that she always seems to have a cold and head congestion. Patient states that she knows that something is wrong. Past History Travel History Traveled to [place] past 21 day No Medical History Any Pertinent Medical History? 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 FH: colon cancer BROTHER (Bypass Sx). FHx: melanoma Relation not specified for: FH: coronary artery bypass surgery FH: stroke Hx Contributory? No Review of Systems Review of Systems Constitutional: Reports: see HPI. EENTM: Reports: see HPI. Respiratory: Reports: no symptoms. Cardiovascular: Reports: no symptoms. GI: Reports: no symptoms. Genitourinary: Reports: no symptoms. Musculoskeletal: Reports: see HPI. Skin: Reports: no symptoms. Neurological/Psychological: Reports: see HPI, anxiety. Hematologic/Endocrine: Reports: no symptoms. Immunologic/Allergic: Reports: no symptoms. All Other Systems: Reviewed and Negative Physical Exam Physical Exam General Appearance: well developed/nourished, alert, awake, anxious, mild distress Head: atraumatic, normal appearance Eyes: Bilateral: PERRL, EOMI. Ears, Nose, Throat: normal pharynx, normal ENT inspection, hearing grossly normal Neck: normal inspection, supple, full range of motion Respiratory: normal breath sounds, chest non-tender, no respiratory distress, lungs clear Cardiovascular: regular rate/rhythm, normal peripheral pulses Gastrointestinal: normal bowel sounds, soft, non-tender, no organomegaly Back: normal inspection, normal range of motion Extremities: normal inspection, normal capillary refill, normal range of motion, no edema, TENDERNESS TO THE LEFT MEDIAL SHOULDER AREA. uNABLE TO LOCALIZE IF IT IS OVER A SPECIFIC TENDON OR BURSA. pATIENT HAS FULL RANGE OF MOTION. pULSES ARE INTACT. sENSATION IS INTACT INTACT. cAPILLARY REFILL IS LESS THAN 2 SECONDS. Neurologic/Psych: no motor/sensory deficits, awake, alert, oriented x 3, normal gait, normal mood/affect Skin: intact, normal color, warm/dry Lymphatic: no anterior cervical gene Core Measures ACS in differential dx? No CVA/TIA Diagnosis: No Severe Sepsis Present: No Septic Shock Present: No Progress Differential Diagnoses I considered the following diagnoses in my evaluation of the patient: [Bursitis, tendinitis, PA] Plan of Care: Orders Procedure Date/time Status EKG 03/30 2257 Active Current Medications Sig/Liz Start time Last Medication Dose Stop Time Status Admin Acetaminophen 650 MG ONCE ONE 03/31 300 UNVr (Tylenol) 03/31 301 Diagnostic Imaging: Viewed by Me: Radiology Read. Discussed w/RAD: Radiology Read. Radiology Impression: PATIENT: ABA DIAZ PRESENT AGE: 76 PATIENT ACCOUNT NO: [id number] : 41 LOCATION: [facility] ORDERING PHYSICIAN: SUDARSHAN DAMON MD SERVICE DATE: 03/31/17 EXAM TYPE: RAD - XRY-SHOULDER COMPLETE-LEFT EXAMINATION: XR SHOULDER, LEFT CLINICAL INFORMATION: Left shoulder pain COMPARISON: None TECHNIQUE: Four views of the left shoulder. FINDINGS: Glenohumeral alignment appears anatomic. No acute fracture is seen. The acromioclavicular joint is intact with moderate degenerative change. IMPRESSION: No acute findings identified. Degenerative change at the acromioclavicular joint. DICTATED BY: AURELIANO CORDOBA MD DATE/TIME DICTATED:03/31/17229 LACQUER SIZER:MARIANO DATE/TIME TRANSCRIBED:229 CONFIDENTIAL, DO NOT COPY WITHOUT APPROPRIATE AUTHORIZATION. < Electronically signed in Other Vendor System> SIGNED BY: AURELIANO CORDOBA MD 03/31/17234 Initial ED EKG: NSR, nonspecific ST T wave chg Prior EKG: unchanged Departure Departure Disposition: HOME OR SELF CARE Condition: Stable Clinical Impression Primary Impression: Bursitis Qualifiers: Bursitis location: shoulder Laterality: left Qualified Code: M75.52 - Bursitis of left shoulder Referrals: INA RAMOS MD (PCP/Family) Additional Instructions: FOLLOW UP WITH DR. RAMOS RETURN FOR ANY CONCERNS Departure Forms: Customer Survey General Discharge Information Critical Care Note Critical Care Note Critical Care Time: non-applicable
[2017-03-31 01:25] VITALS: BP 118/78
--- NOTE | 2017-03-31 02:35 | RADIOLOGY REPORT ---
EXAMINATION: XR SHOULDER, LEFT CLINICAL INFORMATION: Left shoulder pain COMPARISON: None TECHNIQUE: Four views of the left shoulder. FINDINGS: Glenohumeral alignment appears anatomic. No acute fracture is seen. The acromioclavicular joint is intact with moderate degenerative change. IMPRESSION: No acute findings identified. Degenerative change at the acromioclavicular joint.
== END 2017-03-31 02:56 ==
LOC: ERH 22:55
DX: M75.52 Bursitis of left shoulder (principal)
CPT/HCPCS: 73030-LT; 93005; 93010

== ENCOUNTER 2017-04-27 11:23 | Emergency (ER) | payer OTHER, MEDICARE ==
[~2017-04-27] VITALS: Ht 162.6 cm; Wt 89.8 kg
[~2017-04-27 11:23] MED LIST changes: +VENTOLIN HFA18 GM INH
[2017-04-27 11:31] VITALS: BP 142/65
--- NOTE | 2017-04-27 11:55 | ED GENERAL ADULT ---
History of Present Illness General Chief Complaint: General Adult Stated Complaint: BIBA WITH SOB Source: patient Exam Limitations: no limitations Vital Signs & Intake/Output Vital Signs & Intake/Output Vital Signs Date Time Temp Pulse Resp B/P B/P Pulse O2 O2 Flow FiO2 Mean Ox Delivery Rate 04/27 1141 98 Room Air 04/27 1131 97.4 89 20 142/65 98 Room Air Allergies Coded Allergies: NO KNOWN ALLERGIES (12/07/16) Reconcile Medications Albuterol Sulfate (Ventolin Hfa) 90 MCG HFA.AER.AD 2 PUF INH Q4-6 PRN PRN RESPIRATORY (Reported) Amlodipine Besylate 5 MG TABLET 1 TAB PO DAILY HEART (Reported) Azithromycin (Zithromax) 250 MG TABLET 1 DP PO AD sinusitis 2 the first day followed by 1 for days 2-5 Buspirone HCl 15 MG TABLET 1 TAB PO BID ANXIETY (Reported) Esomeprazole (Nexium) 40 MG CAPSULE.DR 1 CAP PO DAILY GI (Reported) Lotrisone (Lotrisone Cream) 1 %-0.05 % CREAM..G. 1 MAHIN TOP QAMPM tinea apply to affected area(s) Meclizine HCl 25 MG TABLET 1 TAB PO TIDPRN PRN dizziness Mometasone Furoate (Nasonex) 50 MCG SPRAY.PUMP 2 SPRAY NASB DAILY rhinitis Polyethylene Glycol 3350 (Miralax) 17 GRAM POWD.PACK 1 PAC PO DAILY GI ( Reported) dissolve in water Triage Note: PT BIBA FOR C/O SOB AND DEHYDRATION. COUGHS IN RESPONSE TO QUESTION OF COUGHING, OTHERWISE, NONE OBSERVED. STATES "WHITE STUFF" EXPECTORATED AT TIMES. O2 SAT 98% ON RA. NO VISIBLE DYSPNEA OR EXTRA WOB. IN NAD. VSS. Triage Nurses Notes Reviewed? yes Onset: Gradual Duration: worse persistent since (1.5 MONTHS) Timing: recent history Injury Environment: home Severity: moderate Severity Numbers: 8 Modifying Factors: Improves With: immobilization. Worsens With: movement. Associated Symptoms: cough HPI: Patient is a 76-year-old female presenting to the emergency department via EMS with chief complaint of shortness of breath, dry cough, feeling hot inside of her home, shakiness, gas, left chronic shoulder pain over the past 2 months. Patient reports that she seen several doctors and they cannot figure out exactly was causing all of her symptoms. She tried following up with her primary care physician 2 weeks ago, they recommended physical therapy, patient declined. Patient came in today looking for answers. Denies any chest pain. Shortness of breath is worse when she goes outside into the humid air. No palpitations. Denies any trauma or falls. Denies diarrhea. She reports that she is drinking a lot of fluids was still feels dehydrated. Would like IV fluids. Patient has an inhaler at home that she's been using to help with her cough but reports that it doesn't help too much. Denies any lower she any swelling. (CESAR TANNER) Past History Travel History Traveled to [place] past 21 day No Medical History Any Pertinent Medical History? 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 FH: colon cancer BROTHER (Bypass Sx). FHx: melanoma Relation not specified for: FH: coronary artery bypass surgery FH: stroke Hx Contributory? No (CESAR TANNER) Review of Systems Review of Systems Constitutional: Reports: no symptoms. Comments Review of systems: See HPI, All other systems negative. Constitutional, no chills fever or weight loss HEENT: No visual changes no sore throat no congestion Cardiovascular: No chest pain ,palpitation Skin, no jaundice no rashes Respiratory: No sputum or hemoptysis GI: No nausea no vomiting : No dysuria No hematuria Muscle skeletal: no back pain, no neck pain, Neurologic: No numbness no confusion NO HAN Psych: No stress anxiety or depression,. Heme/endocrine: No bruising no bleeding no polyuria or polydipsia Immunology: No splenectomy or history of AIDS (CESAR TANNER) Physical Exam Physical Exam General Appearance: well developed/nourished, no apparent distress, alert, awake , comfortable Comments: Well-developed well-nourished person in no acute distress HEENT: Normal EENT exam, extraocular motion intact, no nystagmus. Pupils equally round and reactive to light and accommodation. Nose is atraumatic. External auditory canal and Tympanic membranes clear. Pharynx normal. No swelling or edema. Neck: Normal inspection Back: Nontender Cardiovascular: Regular rate and rhythms no murmurs rubs or gallops, normal JVP Respiratory: Chest nontender. No respiratory distress.breath sounds clear to auscultation bilaterally Abdomen: Soft, nontender nondistended, no appreciable organomegaly. Normal bowel sounds. No ascites, no rebound or guarding. Extremity: No edema, no calf tenderness to palpation, normal and equal pulses. [place] are warm. Pedal pulses are 2+ bilaterally. Neuro: Alert oriented x3, motor sensory normal, cranial nerves II through XII grossly intact. Skin: No appreciable rash on exposed skin, skin is warm, slightly diaphoretic. Psych: Anxious, memory and judgment is normal. Core Measures ACS in differential dx? Yes CVA/TIA Diagnosis: No Severe Sepsis Present: No Septic Shock Present: No (CESAR TANNER) Progress Differential Diagnoses I considered the following diagnoses in my evaluation of the patient: ACS, heat stroke, dehydration, electrolyte abnormality, bronchitis, pneumonia Plan of Care: Orders Procedure Date/time Status MISTAKE 04/27 1203 Active EKG 04/27 1203 Active Initial ED EKG: NSR (78 BPM) Comments: On arrival patient refused breathing treatment. Patient will have an EKG, orthostatics. Patient will also go for chest x-ray. We will reevaluate once patient has had EKG. Concerning given patient's history for ACS although patient reports her symptoms get worse playing outside in the heat. Could be related to the fact that patient does not have air conditioning in her home and is very hot out today. Patient has been seen and evaluated here for similar symptoms several times a month for the past several months. EKG is sinus. After EKG patient decided to walk out AGAINST MEDICAL ADVICE. Patient left prior to discharge instructions/ further evaluation. (CESAR TANNER) Departure Departure Time of Disposition: 1257 Disposition: LEFT AGAINST MEDICAL ADVICE Condition: Stable Clinical Impression Primary Impression: Dyspnea Referrals: INA RAMOS MD (PCP/Family) Additional Instructions: Follow-up with primary care physician CALL TO MAKE appointment. Return for worsening symptoms or concerns. Departure Forms: Customer Survey General Discharge Information (CESAR TANNER) PA/STEAM SHOVEL ENGINEER Co-Sign Statement Statement: ED Attending supervision documentation- [X] I saw and evaluated the patient. I have also reviewed all the pertinent lab results and diagnostic results. I agree with the findings and the plan of care as documented in the PA's/STEAM SHOVEL ENGINEER's documentation. [X] I have reviewed the ED Record and agree with the PA's/STEAM SHOVEL ENGINEER's documentation. [] Additions or exceptions (if any) to the PAs/STEAM SHOVEL ENGINEER's note and plan are summarized below: [] (GUMARO MONTGOMERY DO) Critical Care Note Critical Care Note Critical Care Time: non-applicable (CESAR TANNER)
== END 2017-04-27 12:57 | disposition left against medical advice (07) ==
LOC: ERH 11:23
DX: R06.00 Dyspnea, unspecified (principal)
CPT/HCPCS: 93005; 93010

== ENCOUNTER 2017-12-06 18:20 | Emergency (ER) | payer OTHER, MEDICARE ==
[~2017-12-06 18:20] MED LIST changes: +AFRIN30 ML NS; +KEFLEX500 M1 PO; +MEDROL4 M2 PO
--- NOTE | 2017-12-06 18:33 | ED GI/GU/ABDOMINAL COMPLAINT ---
History of Present Illness General Chief Complaint: Abdominal Pain/Flank Pain Stated Complaint: BIBA FOR EPIGASTRIC PAIN Source: patient Exam Limitations: no limitations Vital Signs & Intake/Output Vital Signs & Intake/Output Vital Signs Date Time Temp Pulse Resp B/P B/P Pulse O2 O2 Flow FiO2 Mean Ox Delivery Rate 12/066 97.6 72 18 145/63 98 Room Air 12/06 1828 97.0 79 19 155/74 99 Room Air Allergies Coded Allergies: NO KNOWN ALLERGIES (UNKNOWN 07/31/17) Reconcile Medications Albuterol Sulfate (Ventolin Hfa) 90 MCG HFA.AER.AD 2 PUF INH Q4-6 PRN PRN RESPIRATORY (Reported) Amlodipine Besylate 5 MG TABLET 1 TAB PO DAILY HEART (Reported) Esomeprazole (Nexium) 40 MG CAPSULE.DR 1 CAP PO DAILY GI (Reported) Meclizine HCl 25 MG TABLET 1 TAB PO TIDPRN PRN dizziness Polyethylene Glycol 3350 (Miralax) 17 GRAM POWD.PACK 1 PAC PO DAILY PRN CONSTIPATION dissolve in water Triage Note: TO ED BY AMBULANCE WITH C/O NASAL CONGESTION, GEN MALAISE, EPIGASTRIC PAIN. Triage Nurses Notes Reviewed? yes ? N Is pt currently ? No Duration: constant Timing: recent history Quality/Severity: moderate Severity Numbers: 5 Location: generalized abdomen Radiation: no radiation Activities at Onset: none HPI: Patient is a 77-year-old female hypertension, COPD, colon cancer status post resection in June 2015, breast cancer status post lumpectomy in 2006 followed with chemotherapy, ventral abdominal wall hernia status post repair who presents emergent better by ambulance for significant multiple complaints of cold chills nasal congestion cough abdominal distention and pain dizziness patient's last bowel movement was noted to be yesterday no blood no melena noted. Patient states she was evaluated for influenza 2 weeks ago negative results Patient can tolerate by mouth Denies any headache chest pain arm pain jaw pain back pain dysuria hematuria (Deborah JOLLY,Mehdi) Past History Travel History Traveled to [place] past 21 day No Medical History Any Pertinent Medical History? 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 FH: colon cancer BROTHER (Bypass Sx). FHx: melanoma Relation not specified for: FH: coronary artery bypass surgery FH: stroke Hx Contributory? No (Mehdi Muñoz) Review of Systems Review of Systems Constitutional: Reports: see HPI, chills. EENTM: Reports: see HPI, nasal congestion. Respiratory: Reports: see HPI, cough. Cardiovascular: Reports: see HPI. Denies: chest pain. GI: Reports: see HPI, abdominal pain. Genitourinary: Reports: no symptoms. Musculoskeletal: Reports: no symptoms. Skin: Reports: no symptoms. Neurological/Psychological: Reports: no symptoms. Hematologic/Endocrine: Reports: no symptoms. Immunologic/Allergic: Reports: no symptoms. All Other Systems: Reviewed and Negative (Mehdi Muñoz) Physical Exam Physical Exam General Appearance: no apparent distress, alert, comfortable Head: atraumatic Eyes: Bilateral: normal appearance, PERRL, EOMI. Ears, Nose, Throat, Mouth: hearing grossly normal Neck: normal inspection Respiratory: normal breath sounds Cardiovascular: regular rate/rhythm Peripheral Pulses: 2+ radial (R) Gastrointestinal: tenderness Extremities: normal range of motion Neurologic/Psych: no motor/sensory deficits, awake, alert Core Measures ACS in differential dx? No Sepsis Present: No Sepsis Focused Exam Completed? No (Mehdi Muñoz) Progress Differential Diagnosis: AAA, AMI, appendicitis, biliary colic, bowel obstruction , colon cancer, cholecystitis, diverticulitis, esophageal varices, gastritis, hepatitis, hernia, hemorrhoids, ischemic bowel, inflamm bowel dis, kidney stone, ovarian cyst, ovarian torsion, pancreatitis, PID/cervicitis, peptic ulcer, PUD/ GERD, perforated viscous, SBO, UTI/pyelo Plan of Care: Orders Procedure Date/time Status Telemetry/Reclaimer 12/06 1835 Active RAPID VIRAL INFLUENZA A 12/06 1835 Complete TROPONIN LEVEL 12/06 183 Complete D-DIMER 12/06 183 Complete COMPREHENSIVE METABOLIC PANEL 12/06 1835 Complete CBC WITHOUT DIFFERENTIAL 12/06 1835 Complete EKG 12/06 1822 Active Current Medications Sig/Liz Start time Last Medication Dose Stop Time Status Admin Albuterol Sulfate 3 ML ONCE ONE 12/06 2330 UNVr (Proventil) 12/06 2331 Guaifenesin 600 MG .[CONE] 12/06 1845 CAN (Mucinex) Laboratory Tests 12/06/17 2005: D-Dimer High Sensitivty 215 12/06/17 2001: Anion Gap 11, Estimated GFR > 60, BUN/Creatinine Ratio 21.3, Glucose 98, Calcium 9.1, Total Bilirubin 0.5, AST 17, ALT 24, Alkaline Phosphatase 62, Troponin I < 0.01, Total Protein 6.0 L, Albumin 3.7, Globulin 2.3, Albumin/Globulin Ratio 1.6, CBC w Diff NO MAN DIFF REQ, RBC 4.26, MCV 91.7, MCH 30.2, MCHC 32.9 L, RDW 13.7, MPV 8.4, Gran % 81.2 H, Lymphocytes % 11.7 L, Monocytes % 5.5, Eosinophils % 1.6, Basophils % 0, Absolute Granulocytes 5.3, Absolute Lymphocytes 0.8 L, Absolute Monocytes 0.4, Absolute Eosinophils 0.1, Absolute Basophils 0 Microbiology 12/06 2010 NASOPHARYN: Influenza Virus A & B Rapid Smear - COMP Patient upon initial examination was resting comfortably at bedside EKG was unremarkable 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 Patient had unremarkable blood work and EKG CT scans currently are pending discussed handle for Dr. Green Initial ED EKG: normal p-waves, normal QRS complex, normal sinus rhythm, 73 BPM, NSR Prior EKG: unchanged Hand-Off Endorsed To: Peter MORENO,Bj Maciel Endorsed Time: 2154 Pending: CT (Deborah JOLLY,Mehdi) Diagnostic Imaging: Viewed by Me: CT Scan. Discussed w/RAD: CT Scan. Radiology Impression: PATIENT: ABA DIAZ PRESENT AGE: 77 PATIENT ACCOUNT NO: [id number] : 41 LOCATION: [facility] ORDERING PHYSICIAN: Mehdi JOLLY SERVICE DATE: 12/06/17 EXAM TYPE: CAT - CT ABD & PELVIS W IV CONTRAST; CT CHEST W IV CONTRAST EXAMINATION: CT CHEST, ABDOMEN AND PELVIS WITH CONTRAST CLINICAL INFORMATION: 77-year-old female patient with cough and abdominal pain. Shortness of breath. Per chart: Sigmoid resection for colon cancer in 2014. COMPARISON: CT of the abdomen and pelvis on 08/30/2017. (Nonobstructing renal calculi). IMPORTANT: PLEASE NOTE that the patient has had 25 CT exams of the abdomen and pelvis spanning the time from November 2006 through August 2017. TECHNIQUE: Multidetector volumetric imaging was performed from the thoracic inlet through the pubic symphysis following the administration of: Oral contrast: None. Intravenous contrast: 98 mL Optiray 320 No contrast reaction reported Sagittal and coronal reformatted images were obtained on the technologist workstation. Total exam dose-length product 870 mGy -cm FINDINGS: LANGUAGES AND LITERATURE INSTRUCTOR: There is increased burden of formed stool throughout the entire colon from cecum to sigmoid. Portions of the sigmoid are dilated by air. The lungs are clear. CHEST: LUNG: No focal consolidation, nodules or masses. PLEURA: No pleural effusion or pneumothorax. MEDIASTINUM: Normal heart size. No pericardial effusion. No hilar or mediastinal lymphadenopathy. A 7 mm hypodense nodule is located in the right lobe of the thyroid gland. VASCULAR: No thoracic aortic aneurysm or dissection. Central pulmonary arteries opacify normally. CHEST WALL/AXILLA: Surgical clips are present in the left axilla. Asymmetric soft tissue density is seen in the subareolar region of the right breast with focal skin thickening and surgical clips. ABDOMEN/PELVIS: LIVER, GALLBLADDER, AND BILIARY TREE: The left lobe the liver is atrophic. No masses are seen in the bile ducts are normal. The gallbladder is unremarkable. PANCREAS: Normal; no mass or surrounding fluid. SPLEEN: Normal size. No focal lesion. ADRENAL GLANDS : Normal; no mass. KIDNEYS AND URETERS: The kidneys are normal in shape, and attenuation. There is senescent cortical atrophy of both kidneys. No hydronephrosis, hydroureter, or calculi. The exophytic cyst arising of the lower pole left kidney measures 4.5 cm. GASTROINTESTINAL TRACT: Stomach and small bowel non-dilated. No colonic wall thickening or pericolonic inflammatory changes. There is no sign of recurrent tumor at the sigmoid anastomosis. Normal appendix. ABDOMINAL WALL: A small fat-containing midline ventral hernia seen superior to the umbilicus. Series 2, image 69. Midline surgical scar is seen in the infra umbilical abdominal wall. LYMPHOVASCULAR STRUCTURES: No lymphadenopathy. The aorta is unremarkable. Diffuse calcific plaques are noted in the infrarenal aorta BLADDER: No focal mass or wall thickening seen. No bladder calculi. PELVIC VISCERA: The anteverted uterus is postmenopausal in size. OSSEOUS STRUCTURES: No acute or suspicious osseous abnormality. Multilevel degenerative disc disease. IMPRESSION: 1. Asymmetric irregular soft tissue masslike density in the subareolar region of the right breast. Evidently previous biopsies have been performed. There is focal skin thickening. 2. Increased burden of formed stool throughout the colon. No obstruction. 3. No pneumonia. 4. This exam represents the th CT of the abdomen and pelvis obtained in this patient since 2006. DICTATED BY: August Avendaño MD DATE/TIME DICTATED:12/06/172245 FILM FLAT INSPECTOR:MARIANO DATE/TIME TRANSCRIBED:2245 CONFIDENTIAL, DO NOT COPY WITHOUT APPROPRIATE AUTHORIZATION. < Electronically signed in Other Vendor System> SIGNED BY: August Avendaño MD 12/06/17 3039 (Bj Green MD) Departure Departure Disposition: HOME OR SELF CARE Condition: Stable Clinical Impression Primary Impression: Cough Secondary Impressions: Abdominal pain Referrals: Asim Zepeda MD (PCP/Family) Additional Instructions: Follow-up with primary care doctor this week if symptoms worsen return to emergency room Departure Forms: Customer Survey General Discharge Information (Mehdi Muñoz) PA/PIGMENT FURNACE TENDER Co-Sign Statement Statement: ED Attending supervision documentation- [X] I saw and evaluated the patient. I have also reviewed all the pertinent lab results and diagnostic results. I agree with the findings and the plan of care as documented in the PA's/PIGMENT FURNACE TENDER's documentation. [X] I have reviewed the ED Record and agree with the PA's/PIGMENT FURNACE TENDER's documentation. [] Additions or exceptions (if any) to the PAs/PIGMENT FURNACE TENDER's note and plan are summarized below: [] (Peter MORENO,Bj Maciel)
[2017-12-06 20:43] LABS: ABSOLUTE BASOPHIL COUNT 0 /CUMM (0.0-0.2); ABSOLUTE EOSINOPHIL COUNT 0.1 /CUMM (0.0-0.7); ABSOLUTE GRANULOCYTE CT 5.3 /CUMM (1.4-6.5); ABSOLUTE LYMPH COUNT 0.8 /CUMM (1.2-3.4); ABSOLUTE MONOCYTE COUNT 0.4 /CUMM (0.10-0.60); BASOPHIL % 0 % (0.0-2.0); EOSINOPHIL % 1.6 % (0-5); GRANULOCYTE % 81.2 % (42.2-75.2); HEMATOCRIT 39.1 % (37-47); MEAN CORPUSCULAR HGB 30.2 PG (27.0-31.0); MEAN CORPUSCULAR HGB CONC 32.9 G/DL (33.0-37.0); MEAN CORPUSCULAR VOLUME 91.7 FL (81.0-99.0); MEAN PLATELET VOLUME 8.4 FL (7.4-10.4); PLATELET COUNT 187 /CUMM (130-400); RBC DISTRIBUTION WIDTH 13.7 % (11.5-14.5); RED BLOOD CELL CT 4.26 /CUMM (4.20-5.40); WHITE BLOOD CELL COUNT 6.6 /CUMM (4.8-10.8)
--- NOTE | 2017-12-06 23:10 | CT SCAN REPORT ---
EXAMINATION: CT CHEST, ABDOMEN AND PELVIS WITH CONTRAST CLINICAL INFORMATION: 77-year-old female patient with cough and abdominal pain. Shortness of breath. Per chart: Sigmoid resection for colon cancer in 2015. COMPARISON: CT of the abdomen and pelvis on 08/30/2017. (Nonobstructing renal calculi). IMPORTANT: PLEASE NOTE that the patient has had 25 CT exams of the abdomen and pelvis spanning the time from November 2006 through August 2017. TECHNIQUE: Multidetector volumetric imaging was performed from the thoracic inlet through the pubic symphysis following the administration of: Oral contrast: None. Intravenous contrast: 98 mL Optiray 320 No contrast reaction reported Sagittal and coronal reformatted images were obtained on the technologist workstation. Total exam dose-length product 870 mGy-cm FINDINGS: PROTECTIVE SIGNAL INSTALLER: There is increased burden of formed stool throughout the entire colon from cecum to sigmoid. Portions of the sigmoid are dilated by air. The lungs are clear. CHEST: LUNG: No focal consolidation, nodules or masses. PLEURA: No pleural effusion or pneumothorax. MEDIASTINUM: Normal heart size. No pericardial effusion. No hilar or mediastinal lymphadenopathy. A 7 mm hypodense nodule is located in the right lobe of the thyroid gland. VASCULAR: No thoracic aortic aneurysm or dissection. Central pulmonary arteries opacify normally. CHEST WALL/AXILLA: Surgical clips are present in the left axilla. Asymmetric soft tissue density is seen in the subareolar region of the right breast with focal skin thickening and surgical clips. ABDOMEN/PELVIS: LIVER, GALLBLADDER, AND BILIARY TREE: The left lobe the liver is atrophic. No masses are seen in the bile ducts are normal. The gallbladder is unremarkable. PANCREAS: Normal; no mass or surrounding fluid. SPLEEN: Normal size. No focal lesion. ADRENAL GLANDS: Normal; no mass. KIDNEYS AND URETERS: The kidneys are normal in shape, and attenuation. There is senescent cortical atrophy of both kidneys. No hydronephrosis, hydroureter, or calculi. The exophytic cyst arising of the lower pole left kidney measures 4.5 cm. GASTROINTESTINAL TRACT: Stomach and small bowel non-dilated. No colonic wall thickening or pericolonic inflammatory changes. There is no sign of recurrent tumor at the sigmoid anastomosis. Normal appendix. ABDOMINAL WALL: A small fat-containing midline ventral hernia seen superior to the umbilicus. Series 2, image 69. Midline surgical scar is seen in the infra umbilical abdominal wall. LYMPHOVASCULAR STRUCTURES: No lymphadenopathy. The aorta is unremarkable. Diffuse calcific plaques are noted in the infrarenal aorta BLADDER: No focal mass or wall thickening seen. No bladder calculi. PELVIC VISCERA: The anteverted uterus is postmenopausal in size. OSSEOUS STRUCTURES: No acute or suspicious osseous abnormality. Multilevel degenerative disc disease. IMPRESSION: 1. Asymmetric irregular soft tissue masslike density in the subareolar region of the right breast. Evidently previous biopsies have been performed. There is focal skin thickening. 2. Increased burden of formed stool throughout the colon. No obstruction. 3. No pneumonia. 4. This exam represents the 26th CT of the abdomen and pelvis obtained in this patient since 2006.
[2017-12-07 00:02] VITALS: BP 153/70
== END 2017-12-07 00:03 ==
LOC: ERH 18:20
PROVIDERS: Physician Assistant
DX: R05 Cough (principal); R10.84 Generalized abdominal pain
CPT/HCPCS: 1263; 74177; 87804; 87804-59; 93005; 93010; 96374; J2405; J7040

== ENCOUNTER 2018-01-07 20:13 | Emergency (ER) | payer OTHER, MEDICARE ==
[~2018-01-07] VITALS: Ht 162.6 cm; Wt 86.2 kg
--- NOTE | 2018-01-07 20:25 | ED NECK/BACK PAIN COMPLAINT ---
History of Present Illness General Chief Complaint: Abdominal Pain/Flank Pain Stated Complaint: BIBA, LRQ PAIN, DX KIDNEY STONE LAST WEEK Source: patient Exam Limitations: no limitations Vital Signs & Intake/Output Vital Signs & Intake/Output Vital Signs Date Time Temp Pulse Resp B/P B/P Pulse O2 O2 Flow FiO2 Mean Ox Delivery Rate 01/07 2223 97.6 69 20 149/65 98 Room Air 01/07 2038 80 18 138/65 98 Room Air 01/08 2020 97.7 94 20 186/91 99 Room Air Allergies Coded Allergies: NO KNOWN ALLERGIES (UNKNOWN 07/31/17) Reconcile Medications Albuterol Sulfate (Ventolin Hfa) 90 MCG HFA.AER.AD 2 PUF INH Q4-6 PRN PRN RESPIRATORY (Reported) Amlodipine Besylate 5 MG TABLET 1 TAB PO DAILY HEART (Reported) Esomeprazole (Nexium) 40 MG CAPSULE.DR 1 CAP PO DAILY GI (Reported) Meclizine HCl 25 MG TABLET 1 TAB PO TIDPRN PRN dizziness Ondansetron (Zofran Odt) 4 MG TAB.RAPDIS 1 TAB SL TID Nausea and vomiting Polyethylene Glycol 3350 (Miralax) 17 GRAM POWD.PACK 1 PAC PO DAILY PRN CONSTIPATION dissolve in water Tramadol HCl 50 MG TABLET 1 TAB PO BIDP PRN Severe Pain Triage Nurses Notes Reviewed? yes Onset: Gradual Duration: hour(s): Timing: recent history Quality/Severity: moderate Location: lumbar spine Radiation: none Context: recently diagnosed with kidney stones Method of Injury: unknown Loss of Consciousness: no loss of consciousness Associated Symptoms: muscle spasm HPI: 77 yo woman, h/o kidney stones, diagnosed last week with a 3mm stone in bladder, presents with bilateral back pain that began this evening without nausea, vomiting, dysuria, or radiation. She is otherwise well. Past History Travel History Traveled to [place] past 21 day No Medical History Any Pertinent Medical History? see below for history Neurological: vertigo EENT: allergies, cataracts, INNER EAR Cardiovascular: hypertension, negative stress test 2014 Respiratory: asthma, bronchitis, COPD Gastrointestinal: constipation, GERD, HERNIA, COLON RESECTION Hepatic: NONE Renal: UTI Musculoskeletal: disk herniation Psychiatric: anxiety Endocrine: NONE Blood Disorders: NONE Cancer(s): breast cancer, colon/rectal cancer SAP DATA ARCHITECT/Reproductive: NONE History of MRSA: No History of VRE: No History of CDIFF: No Surgical History Surgical History: colon resection, hernia repair-incisional, lumpectomy (right), HERNIATED DISC,CATARACTS, COLON RESECTION Psychosocial History Who do you live with Patient/Self Services at Home Home Health Aide What is your primary language Sami Family History Family History, If Any: MOTHER (colon cancer, stroke at age of 70s). FH: colon cancer BROTHER (Bypass Sx). FHx: melanoma Relation not specified for: FH: coronary artery bypass surgery FH: stroke Hx Contributory? No Review of Systems Review of Systems Constitutional: Reports: no symptoms. Eyes: Reports: no symptoms. Ears, Nose, Throat, Mouth: Reports: no symptoms. Respiratory: Reports: no symptoms. Cardiovascular: Reports: no symptoms. Gastrointestinal/Abdominal: Reports: no symptoms. Musculoskeletal: Reports: no symptoms. Skin: Reports: no symptoms. Neurological/Psychological: Reports: no symptoms. All Other Systems: Reviewed and Negative Physical Exam Physical Exam General Appearance: well developed/nourished, mild distress Head: atraumatic Eyes: Bilateral: normal appearance. Ears, Nose, Throat, Mouth: hearing grossly normal Neck: normal inspection, supple, full range of motion, normal alignment Respiratory: normal breath sounds Cardiovascular: regular rate/rhythm Gastrointestinal: soft, non-tender Back: normal inspection, muscle spasm, no vertebral tenderness, paravertebral muscle spasm. Extremities: normal range of motion Neurologic/Psych: awake, alert, oriented x 3, normal mood/affect Skin: intact, normal color, warm/dry Comments: light touch, dtr's, strength intact bilaterally in lower extremities. Core Measures CVA/TIA Diagnosis: No Progress Differential Diagnosis: herniated disc, myofascial strain, sciatica Plan of Care: pt had ct scan on 12.31.17 which was benign, notable for 3 mm stone in bladder. multiple lab draws in prior months benign. Will support symptomatically. Departure Departure Disposition: HOME OR SELF CARE Condition: Stable Clinical Impression Primary Impression: Back pain Referrals: Asim Zepeda MD (PCP/Family) Departure Forms: Customer Survey General Discharge Information Comments 01.07.18, 23:10... pt rested for several hours. felt well after supportive medications... upon review of her labs and recent ct scan, there were benign findings. pt safe for discharge and will return if her symptoms recur.
[2018-01-07 22:23] VITALS: BP 149/65
== END 2018-01-07 23:16 ==
LOC: ERH 20:13
DX: M54.9 Dorsalgia, unspecified (principal)
CPT/HCPCS: 96372; J1885

== ENCOUNTER 2018-01-11 11:42 | Emergency (ER) | payer OTHER, MEDICARE ==
[~2018-01-11] VITALS: Ht 162.6 cm; Wt 86.2 kg
[2018-01-11 11:48] VITALS: BP 150/76
--- NOTE | 2018-01-11 12:14 | ED GI/GU/ABDOMINAL COMPLAINT ---
History of Present Illness General Chief Complaint: General Adult Stated Complaint: MULTIPLE COMPLAINTS Source: patient, old records Exam Limitations: no limitations Vital Signs & Intake/Output Vital Signs & Intake/Output Vital Signs Date Time Temp Pulse Resp B/P B/P Pulse O2 O2 Flow FiO2 Mean Ox Delivery Rate 01/11 1148 97.0 90 18 150/76 95 Room Air 01/11 1147 98 Allergies Coded Allergies: NO KNOWN ALLERGIES (UNKNOWN 07/31/17) Reconcile Medications Albuterol Sulfate (Ventolin Hfa) 90 MCG HFA.AER.AD 2 PUF INH Q4-6 PRN PRN RESPIRATORY (Reported) Amlodipine Besylate 5 MG TABLET 1 TAB PO DAILY HEART (Reported) Esomeprazole (Nexium) 40 MG CAPSULE.DR 1 CAP PO DAILY GI (Reported) Meclizine HCl 25 MG TABLET 1 TAB PO TIDPRN PRN dizziness Meloxicam (Mobic) 15 MG TABLET 1 TAB PO DAILY PRN pain Ondansetron (Zofran Odt) 4 MG TAB.RAPDIS 1 TAB SL TID Nausea and vomiting Polyethylene Glycol 3350 (Miralax) 17 GRAM POWD.PACK 1 PAC PO DAILY PRN CONSTIPATION dissolve in water Tramadol HCl 50 MG TABLET 1 TAB PO BIDP PRN Severe Pain Triage Note: PT STATES SHE IS HAVING TROUBLE MOVING HER BOWELS EVER SINCE SHE HAD A KIDNEY STONE. PT AMBULATED TO BR GAIT STEADY. URINAY HAT PLACED IN BR FOR COLLECTION. PT STATES SHE HAS BEEN TRYING TO FORCE A BOWEL MOVEMENT FOR A FEW DAYS. Triage Nurses Notes Reviewed? yes ? n Is pt currently ? No (n) Onset: Gradual Duration: day(s): Timing: recent history Quality/Severity: moderate Location: generalized abdomen HPI: 77yo female with hx of HTN, vertigo, anxiety presents to ED complaining of contipation x 2-3 days. Patient states she has been "feeling off" since her recent kidney stone dx last week. Patient reports urinary frequency. Patient has been trying qtop-bij-dzyaged laxative and senna however no bowel movement. Patient also reports feeling intermittent dizziness. Patient denies nausea, vomiting, dysuria, back pain, hematochezia. (Chloé JOLLY,Fatimah Camarillo) Past History Travel History Traveled to [place] past 21 day No Medical History Any Pertinent Medical History? see below for history Neurological: vertigo EENT: allergies, cataracts, INNER EAR Cardiovascular: hypertension, negative stress test 2014 Respiratory: asthma, bronchitis, COPD Gastrointestinal: constipation, GERD, HERNIA, COLON RESECTION Hepatic: NONE Renal: UTI Musculoskeletal: disk herniation Psychiatric: anxiety Endocrine: NONE Blood Disorders: NONE Cancer(s): breast cancer, colon/rectal cancer PILLOWCASE MAKER/Reproductive: NONE History of MRSA: No History of VRE: No History of CDIFF: No Surgical History Surgical History: colon resection, hernia repair-incisional, lumpectomy (right), HERNIATED DISC,CATARACTS, COLON RESECTION Psychosocial History Who do you live with Patient/Self Services at Home Home Health Aide What is your primary language [place] Tobacco Use: Never used ETOH Use: denies use Illicit Drug Use: denies illicit drug use Family History Family History, If Any: MOTHER (colon cancer, stroke at age of 70s). FH: colon cancer BROTHER (Bypass Sx). FHx: melanoma Relation not specified for: FH: coronary artery bypass surgery FH: stroke Hx Contributory? No (Fatimah Dunham) Review of Systems Review of Systems Constitutional: Reports: see HPI. EENTM: Reports: no symptoms. Respiratory: Reports: no symptoms. Cardiovascular: Reports: no symptoms. GI: Reports: see HPI. Genitourinary: Reports: see HPI. Musculoskeletal: Reports: no symptoms. Skin: Reports: no symptoms. Neurological/Psychological: Reports: see HPI. Hematologic/Endocrine: Reports: no symptoms. Immunologic/Allergic: Reports: no symptoms. All Other Systems: Reviewed and Negative (Fatimah Dunham) Physical Exam Physical Exam General Appearance: well developed/nourished, no apparent distress, alert, awake Head: atraumatic, normal appearance Eyes: Bilateral: normal appearance, PERRL, EOMI. Ears, Nose, Throat, Mouth: hearing grossly normal, moist mucous membrane Neck: normal inspection, supple, full range of motion Respiratory: normal breath sounds, no respiratory distress, lungs clear Cardiovascular: regular rate/rhythm Gastrointestinal: normal bowel sounds, soft, MILD tenderness all quadrants Back: normal inspection, normal range of motion Extremities: normal range of motion Neurologic/Psych: awake, alert, oriented x 3 Skin: intact, normal color, warm/dry Core Measures ACS in differential dx? No Sepsis Present: No Sepsis Focused Exam Completed? No (Fatimah Dunham) Progress Differential Diagnosis: bowel obstruction, gastritis, kidney stone, SBO, constipation Diagnostic Imaging: Viewed by Me: Radiology Read. Discussed w/RAD: Radiology Read. Radiology Impression: PATIENT: ABA DIAZ PRESENT AGE: 77 PATIENT ACCOUNT NO: [id number] : 41 LOCATION: [facility] ORDERING PHYSICIAN: Fatimah JOLLY SERVICE DATE: 01/11/18-1213 EXAM TYPE: RAD - [id number] VIEWS EXAMINATION: XR ABDOMEN MULTIPLE VIEWS CLINICAL INDICATION: No bowel movement for days despite laxative use, assess for small bowel obstruction or constipation COMPARISON: CT 12/31/2017 TECHNIQUE: 2 views of the abdomen. FINDINGS: No intra-abdominal free air is seen. There is scattered small and large bowel gas throughout the abdomen without disproportionate dilation to suggest obstruction. A moderate volume of stool is noted. Calcifications in the pelvis are statistically favored to reflect phleboliths, though one of these could reflect the small bladder calculus seen on 12/31/2017. Visualized portions of the lungs are clear. Degenerative changes are noted in the spine. IMPRESSION: Nonobstructive bowel gas pattern. Moderate volume of stool. DICTATED BY: Jose Manuel Sanches MD DATE/TIME DICTATED:01/11/181342 BABY DOCTOR:MARIANO DATE/TIME TRANSCRIBED:01/11/181342 CONFIDENTIAL, DO NOT COPY WITHOUT APPROPRIATE AUTHORIZATION. <Electronically signed in Other Vendor System> SIGNED BY: Jose Manuel Sanches MD 01/11/18 1352 Initial ED EKG: none (Chloé JOLLY,Fatimah Camarillo) Plan of Care: Orders Procedure Date/time Status COMPREHENSIVE METABOLIC PANEL 01/11 1214 Complete CBC WITHOUT DIFFERENTIAL 01/11 1214 Complete URINALYSIS 01/11 1208 Complete Laboratory Tests 01/11/18 1304: Anion Gap 13, Estimated GFR > 60, BUN/Creatinine Ratio 17.1, Glucose 91, Calcium 9.6, Total Bilirubin 0.6, AST 18, ALT 24, Alkaline Phosphatase 65, Total Protein 6.4, Albumin 3.8, Globulin 2.6, Albumin/Globulin Ratio 1.5, CBC w Diff NO MAN DIFF REQ, RBC 4.22, MCV 91.1, MCH 30.9, MCHC 34.0, RDW 13.5, MPV 7.6, Gran % 76.1 H, Lymphocytes % 14.7 L, Monocytes % 4.7, Eosinophils % 4.2, Basophils % 0.3, Absolute Granulocytes 3.8, Absolute Lymphocytes 0.7 L, Absolute Monocytes 0.2, Absolute Eosinophils 0.2, Absolute Basophils 0 01/11/18 1210: Urine Color STRAW, Urine Clarity CLEAR, Urine pH 6.0, Ur Specific Rhodes <= 1.005, Urine Protein NEG, Urine Ketones NEG, Urine Nitrite NEG, Urine Bilirubin NEG, Urine Urobilinogen 0.2, Ur Leukocyte Esterase NEG, Ur Microscopic SEDIMENT EXAMINED, Urine RBC RARE, Ur Epithelial Cells RARE, Urine Hemoglobin TRACE- INTACT, Urine Glucose NEG Possible opiate induced constipation given recent Tramadol rx on 12/31/17. Patient's abdominal plain film shows moderate constipation. I recommended patient begin linzess given her opiate-induced constipation however patient declines, she states she would prefer to take senna and medications as prescribe her primary care doctor. Patient wishing to go home at this time however is requesting pain medication. I prescribed the patient meloxicam as she should avoid opiates constipation. Patient agrees with the plan of care. The patient was seen and evaluated by Dr. Boggs who agrees with this plan. (Chloé JOLLY,Fatimah Camarillo) (Flakita MORENO,Mahin Mcintosh) Departure Departure Disposition: HOME OR SELF CARE Condition: Stable Clinical Impression Primary Impression: Constipation Referrals: Asim Zepeda MD (PCP/Family) Additional Instructions: It is recommended that you takes senna daily as well as magnesium sulfate today for constipation. Take meloxicam as prescribed as needed for pain. Increase your fluids. Return with worsening symptoms or concerns. Please note that there might be incidental findings in your evaluation that are unrelated to the current emergency department visit. Please notify your primary care doctor about this emergency department visit in order to obtain and review all of the testing performed so that these incidental findings can be monitored as needed. If you had an x-ray performed, please understand that some fractures may not be seen on the initial set of x-rays. If your symptoms persist you might need a repeat set of x-rays to check for such a fracture. If you had a laceration evaluated, please understand that foreign bodies such as glass or wood may not be visible to the naked eye or on plain x-rays. If the wound becomes red, swollen, increasingly more painful or if there is any drainage from the wound, please have it reevaluated by a physician for the possibility of a retained foreign body. If you're unable to follow up as outlined in the discharge instructions please return to the emergency department. Thank you for choosing the [facility] Emergency Department for your care. It was a pleasure to serve you today. Departure Forms: Customer Survey General Discharge Information Prescriptions: Current Visit Scripts Meloxicam (Mobic) 1 TAB PO DAILY PRN pain #15 TAB (Chloé JOLLY,Fatimah Camarillo) PA/BALLPOINT PEN ASSEMBLY MACHINE OPERATOR Co-Sign Statement Statement: ED Attending supervision documentation- [X] I saw and evaluated the patient. I have also reviewed all the pertinent lab results and diagnostic results. I agree with the findings and the plan of care as documented in the PA's/BALLPOINT PEN ASSEMBLY MACHINE OPERATOR's documentation. Patient presents for evaluation of possible constipation, recent treatment for renal colic. Physical examination reveals a relatively comfortable appearing woman with a benign abdominal examination. [] I have reviewed the ED Record and agree with the PA's/BALLPOINT PEN ASSEMBLY MACHINE OPERATOR's documentation. [] Additions or exceptions (if any) to the PAs/BALLPOINT PEN ASSEMBLY MACHINE OPERATOR's note and plan are summarized below: [] (Flakita MORENO,Mahin Mcintosh)
[2018-01-11 13:13] LABS: ABSOLUTE BASOPHIL COUNT 0 /CUMM (0.0-0.2); ABSOLUTE EOSINOPHIL COUNT 0.2 /CUMM (0.0-0.7); ABSOLUTE GRANULOCYTE CT 3.8 /CUMM (1.4-6.5); ABSOLUTE LYMPH COUNT 0.7 /CUMM (1.2-3.4); ABSOLUTE MONOCYTE COUNT 0.2 /CUMM (0.10-0.60); BASOPHIL % 0.3 % (0.0-2.0); EOSINOPHIL % 4.2 % (0-5); GRANULOCYTE % 76.1 % (42.2-75.2); HEMATOCRIT 38.4 % (37-47); MEAN CORPUSCULAR HGB 30.9 PG (27.0-31.0); MEAN CORPUSCULAR VOLUME 91.1 FL (81.0-99.0); MEAN PLATELET VOLUME 7.6 FL (7.4-10.4); PLATELET COUNT 210 /CUMM (130-400); RBC DISTRIBUTION WIDTH 13.5 % (11.5-14.5); RED BLOOD CELL CT 4.22 /CUMM (4.20-5.40); WHITE BLOOD CELL COUNT 4.9 /CUMM (4.8-10.8)
--- NOTE | 2018-01-11 13:52 | RADIOLOGY REPORT ---
EXAMINATION: XR ABDOMEN MULTIPLE VIEWS CLINICAL INDICATION: No bowel movement for days despite laxative use, assess for small bowel obstruction or constipation COMPARISON: CT 12/31/2017 TECHNIQUE: 2 views of the abdomen. FINDINGS: No intra-abdominal free air is seen. There is scattered small and large bowel gas throughout the abdomen without disproportionate dilation to suggest obstruction. A moderate volume of stool is noted. Calcifications in the pelvis are statistically favored to reflect phleboliths, though one of these could reflect the small bladder calculus seen on 12/31/2017. Visualized portions of the lungs are clear. Degenerative changes are noted in the spine. IMPRESSION: Nonobstructive bowel gas pattern. Moderate volume of stool.
[2018-01-11] MEDS ORDERED: MOBIC15 M1 PO (14:27)
== END 2018-01-11 14:31 ==
LOC: ERH 11:42
PROVIDERS: Physician Assistant
DX: K59.00 Constipation, unspecified (principal)
CPT/HCPCS: 74021; 81001

== ENCOUNTER 2018-01-23 08:46 | Emergency (ER) | payer OTHER, MEDICARE ==
[~2018-01-23] VITALS: Ht 162.6 cm; Wt 86.2 kg
[~2018-01-23 08:46] MED LIST changes: +CYCLOBENZAPRINE10 M1 PO; +MOBIC15 M1 PO
--- NOTE | 2018-01-23 09:17 | ED GENERAL ADULT ---
History of Present Illness General Chief Complaint: General Adult Stated Complaint: PT STATES "I FEEL THE SAME" Source: patient, old records Exam Limitations: no limitations Allergies Coded Allergies: NO KNOWN ALLERGIES (UNKNOWN 07/31/17) Reconcile Medications Albuterol Sulfate (Ventolin Hfa) 90 MCG HFA.AER.AD 2 PUF INH Q4-6 PRN PRN RESPIRATORY (Reported) Amlodipine Besylate 5 MG TABLET 1 TAB PO DAILY HEART (Reported) Cyclobenzaprine HCl 10 MG TABLET 1 TAB PO BID PRN MUSCLE TIGHTNESS Esomeprazole (Nexium) 40 MG CAPSULE.DR 1 CAP PO DAILY GI (Reported) Meclizine HCl 25 MG TABLET 1 TAB PO TIDPRN PRN dizziness Meloxicam (Mobic) 15 MG TABLET 1 TAB PO DAILY PRN pain Ondansetron (Zofran Odt) 4 MG TAB.RAPDIS 1 TAB SL TID Nausea and vomiting Polyethylene Glycol 3350 (Miralax) 17 GRAM POWD.PACK 1 PAC PO DAILY PRN CONSTIPATION dissolve in water Tramadol HCl 50 MG TABLET 1 TAB PO BIDP PRN Severe Pain Triage Note: PRESENTS TO THE ED COMPLAINING OF ABDOMINAL CRAMPING. SHE WAS RECENTLY EVALUATED FOR THE SAME SHE STATED AND SHE WAS PRESCRIBED MUSCLE RELAXANTS. Triage Nurses Notes Reviewed? yes Onset: Abrupt Duration: week(s):, constant, waxing and waning Timing: recent history Injury Environment: home Severity: mild Severity Numbers: 4 No Modifying Factors: none Associated Symptoms: denies HPI: 77-year-old female well-known to this emergency room presents to ER reporting that her "diaphragm is spasming" patient has been seen numerous times in the past for the same she reports a nonproductive cough no fever no chills no chest pain. She also states she is constipated. She was prescribed a muscle relaxer during her last visit here for the same however states it is not helping (Mehdi Logan) Vital Signs & Intake/Output Vital Signs & Intake/Output Vital Signs Date Time Temp Pulse Resp B/P B/P Pulse O2 O2 Flow FiO2 Mean Ox Delivery Rate 01/23 1046 97.0 90 20 120/80 98 Room Air 01/23 0947 97 01/23 0855 97.3 101 18 137/82 97 Room Air (Flakita MORENO,Mahin Mcintosh) Past History Travel History Traveled to [place] past 21 day No Medical History Any Pertinent Medical History? see below for history Neurological: vertigo EENT: allergies, cataracts, INNER EAR Cardiovascular: hypertension, negative stress test 2014 Respiratory: asthma, bronchitis, COPD Gastrointestinal: constipation, GERD, HERNIA, COLON RESECTION Hepatic: NONE Renal: UTI Musculoskeletal: disk herniation Psychiatric: anxiety Endocrine: NONE Blood Disorders: NONE Cancer(s): breast cancer, colon/rectal cancer TUNGSTEN TENDER/Reproductive: NONE History of MRSA: No History of VRE: No History of CDIFF: No Surgical History Surgical History: colon resection, hernia repair-incisional, lumpectomy (right), HERNIATED DISC,CATARACTS, COLON RESECTION Psychosocial History Who do you live with Patient/Self Services at Home Home Health Aide What is your primary language Tajik Tobacco Use: Never used Family History Family History, If Any: MOTHER (colon cancer, stroke at age of 70s). FH: colon cancer BROTHER (Bypass Sx). FHx: melanoma Relation not specified for: FH: coronary artery bypass surgery FH: stroke Hx Contributory? No (Mehdi Logan) Review of Systems Review of Systems Constitutional: Reports: see HPI. Comments Review of systems: See HPI, All other systems negative. Constitutional, no chills no fever HEENT: no sore throat no congestion Cardiovascular: No chest pain Skin: no rashes, no change in skin Respiratory: dyspnea no cough no sputum GI: No nausea no vomiting, no diarrhea : No dysuria No hematuria, no frequency Muscle skeletal: No joint pain, no back pain, no neck pain, Neurologic: , no headache Heme/endocrine: No bruising Immunology: No lymphadenopathy (Mehdi Logan) Physical Exam Physical Exam General Appearance: well developed/nourished, no apparent distress, awake, anxious Comments: Well-developed well-nourished person in no acute distress HEENT: Normal EENT exam; PERRL, EOMI, HEAD is atraumatic. moist mucous membranes. Neck: Supple, normal range of motion Back: Nontender, Full range of motion Cardiovascular: Regular rate and rhythms no murmurs rubs or gallops, normal JVP Respiratory: Chest nontender.There were no bony deformities, no asymmetry. No respiratory distress. Patient speaking in full complete sentences. Breath sounds clear to auscultation bilaterally: NO W/R/R Abdomen: Soft, nontender nondistended Extremity: No edema, full range of motion of extremities Neuro: Alert oriented x3, motor sensory normal, There were no obvious focal neurologic abnormalities. Skin: No appreciable rash on exposed skin, skin is warm and dry. Psych: Mood and affect is normal, memory and judgment is normal. Core Measures ACS in differential dx? No CVA/TIA Diagnosis: No Sepsis Present: No Sepsis Focused Exam Completed? No (Mehdi Logan) Progress Differential Diagnoses I considered the following diagnoses in my evaluation of the patient: [Anxiety, reactive airway, pneumonia, bronchitis Initial ED EKG: normal intervals, normal p-waves, normal QRS complex, normal sinus rhythm (Mehdi Logan) Plan of Care: Orders Procedure Date/time Status EKG 01/24 928 Active patient has been seen numerous times in the past for similar complaints her old records regarding labs x-rays from her previous visit was reviewed breathing treatment, Ativan ordered Patient feeling improved after breathing treatment and Ativan, she just had blood work performed adenopathy she requires any further imaging at this time she is resting in no acute distress nontoxic appearing (Mehdi Logan) Comments: 01/23/2018 10:41:58 AM Adi feels improved enough to go home. I have requested she follow up with her primary care physician and with the neurologist regarding her shaking (she is concerned about Parkinson disease as her mother had). (Flakita MORENO,Mahin Mcintosh) Departure Departure Disposition: HOME OR SELF CARE Condition: Stable Clinical Impression Primary Impression: Dyspnea Departure Forms: Customer Survey General Discharge Information (Mehdi Logan) Departure Referrals: Wyatt MORENO,Cassandra Zepeda MD,Asim (PCP/Family) Additional Instructions: Take your medications as prescribed. follow up with your primary doctor this week. Consider following up with Dr. Schneider (neurology) regarding the shakiness. PA/WATER TREATMENT OPERATOR Co-Sign Statement Statement: ED Attending supervision documentation- [x] I saw and evaluated the patient. I have also reviewed all the pertinent lab results and diagnostic results. I agree with the findings and the plan of care as documented in the PA's/WATER TREATMENT OPERATOR's documentation. [] I have reviewed the ED Record and agree with the PA's/WATER TREATMENT OPERATOR's documentation. [] Additions or exceptions (if any) to the PAs/WATER TREATMENT OPERATOR's note and plan are summarized below: [] (Flakita MORENO,Mhain Mcintosh) Critical Care Note Critical Care Note Critical Care Time: non-applicable (Becca JOLLY,Mehdi)
[2018-01-23 10:46] VITALS: BP 120/80
== END 2018-01-23 10:47 ==
LOC: ERH 08:46
DX: R06.00 Dyspnea, unspecified (principal)
CPT/HCPCS: 1263; 93005; 93010

== ENCOUNTER 2018-01-30 10:16 | Emergency (ER) | payer OTHER, MEDICARE ==
[~2018-01-30] VITALS: Ht 162.6 cm; Wt 81.6 kg
--- NOTE | 2018-01-30 10:52 | ED GI/GU/ABDOMINAL COMPLAINT ---
History of Present Illness General Chief Complaint: Abdominal Pain/Flank Pain Stated Complaint: BIBA FOR ABD PAIN Source: patient, old records Exam Limitations: no limitations Vital Signs & Intake/Output Vital Signs & Intake/Output Vital Signs Date Time Temp Pulse Resp B/P B/P Pulse O2 O2 Flow FiO2 Mean Ox Delivery Rate 01/30 1445 97.0 90 20 140/80 98 Room Air 01/30 1230 88 20 146/78 98 Room Air 01/30 1026 95.1 96 20 150/53 98 Room Air Allergies Coded Allergies: NO KNOWN ALLERGIES (UNKNOWN 07/31/17) Reconcile Medications Albuterol Sulfate (Ventolin Hfa) 90 MCG HFA.AER.AD 2 PUF INH Q4-6 PRN PRN RESPIRATORY (Reported) Amlodipine Besylate 5 MG TABLET 1 TAB PO DAILY HEART (Reported) Cyclobenzaprine HCl 10 MG TABLET 1 TAB PO BID PRN MUSCLE TIGHTNESS Esomeprazole (Nexium) 40 MG CAPSULE.DR 1 CAP PO DAILY GI (Reported) Meclizine HCl 25 MG TABLET 1 TAB PO TIDPRN PRN dizziness Meloxicam (Mobic) 15 MG TABLET 1 TAB PO DAILY PRN pain Ondansetron (Zofran Odt) 4 MG TAB.RAPDIS 1 TAB SL TID Nausea and vomiting Polyethylene Glycol 3350 (Miralax) 17 GRAM POWD.PACK 1 PAC PO DAILY PRN CONSTIPATION dissolve in water Tramadol HCl 50 MG TABLET 1 TAB PO BIDP PRN Severe Pain Triage Note: BIBA FROM HOME, C/O STOMACH "SPASMING" AND R ARM BURNING, ALSO C/O FEELING "FUZZY" AND DIZZY. SEEN EARLIER TODAY FOR SAME. HAD B/W AND XRAYS DONE. Triage Nurses Notes Reviewed? yes ? N Is pt currently ? No Onset: Gradual Duration: worse persistent since (SEVERAL WEEKS) Timing: recent history Quality/Severity: cramping, TIGHT Severity Numbers: 6 Location: generalized abdomen Radiation: no radiation Activities at Onset: none Prior Abdominal Problems: similar symptoms Past Sexual History: Unobtainable at this time No Modifying Factors: none HPI: And is a 77-year-old female presenting to the emergency department with chief complaint of diffuse abdominal pain more so in the lower abdomen has been going on for the past several weeks. She reports she was seen and evaluated here yesterday and had blood work done, abdominal and chest x-rays well. Patient complaining that she is not able to take medications that she was prescribed yesterday evening. Patient reports decreased by mouth intake, dry mouth. She is trying to stay hydrated but think she needs IV fluids. Patient denying any current chest pain or palpitations. Patient reports that her allergies have been acting up over the past several days. She has not been taking her medications for allergies and she does not like the way they make her feel. No sick contacts or recent travel. Denies any trauma. Denies any urinary frequency urgency or dysuria. No hematuria. (Tracee Lacey) Past History Travel History Traveled to [place] past 21 day No Medical History Any Pertinent Medical History? 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 FH: colon cancer BROTHER (Bypass Sx). FHx: melanoma Relation not specified for: FH: coronary artery bypass surgery FH: stroke Hx Contributory? Yes (Tracee Lacey) Review of Systems Review of Systems Constitutional: Reports: see HPI, malaise. Comments Review of systems: See HPI, All other systems negative. Constitutional, no chills fever or weight loss HEENT: No visual changes no sore throat Cardiovascular: No chest pain ,palpitation , orthopnea or ankle swelling Skin, no jaundice no rashes Respiratory: No dyspnea sputum or hemoptysis GI: no vomiting : No dysuria No hematuria Muscle skeletal: no back pain, no neck pain, Neurologic: No numbness no confusion Psych: POS STRESS/ANXIETY Heme/endocrine: No bruising no bleeding no polyuria or polydipsia Immunology: No splenectomy or history of AIDS (Tracee Lacey) Physical Exam Physical Exam General Appearance: no apparent distress, alert, awake, anxious Gastrointestinal: normal bowel sounds, soft, tenderness Comments: Well-developed well-nourished person in no acute distress HEENT: Pupils equally round and reactive to light and accommodation. Nose is atraumatic. Pharynx normal. No swelling or edema. Dry oral mucosa. Neck: Normal inspection Back: Nontender, no CVA tenderness. Cardiovascular: Regular rate and rhythms no murmurs rubs or gallops appreciated on auscultation. Respiratory: Chest nontender. No respiratory distress.breath sounds clear to auscultation bilaterally Abdomen: Soft, diffusely tender without rebound or guarding, nondistended, no appreciable organomegaly. Normal bowel sounds. No ascites Extremity: No edema Neuro: Alert oriented x3 Skin: No appreciable rash on exposed skin, skin is warm and dry. Psych: Very anxious appearing, hyperverbal, memory and judgment is normal. Core Measures ACS in differential dx? No Sepsis Present: No Sepsis Focused Exam Completed? No (Tracee Lacey) Progress Differential Diagnosis: CHRONIC ABDOMINAL PAIN, GASTRITIS, PEPTIC ULCER DISEASE, DEHYDRATION Plan of Care: Orders Procedure Date/time Status Heart Healthy Diet 01/30 D Active Patient able to eat grilled cheese and chicken noodle soup without nausea or vomiting. Patient had labs done 12 hours prior to arrival. Unremarkable. Patient has been seen and evaluated several times for similar symptoms in the past. Symptoms improved after 1 L normal saline. She'll be discharged home, follow with PCP tomorrow. Vitals are stable. D/W DR DAMON AND HE AGREES WITH PLAN. Initial ED EKG: none (Tracee Lacey) Departure Departure Time of Disposition: 1438 Disposition: HOME OR SELF CARE Condition: Stable Clinical Impression Primary Impression: Chronic abdominal pain Secondary Impressions: Dry mouth Referrals: Asim Zepeda MD (PCP/Family) Additional Instructions: Follow-up with Dr. Zepeda, call tomorrow to make an appointment. Increase fluids. Continue all previous medications. Return for worsening symptoms or concerns. Departure Forms: Customer Survey D/C INS-APPENDICITIS EXCLUSION General Discharge Information (Tracee Lacey) PA/AIRPLANE INSPECTOR Co-Sign Statement Statement: ED Attending supervision documentation- [X] I saw and evaluated the patient. I have also reviewed all the pertinent lab results and diagnostic results. I agree with the findings and the plan of care as documented in the PA's/AIRPLANE INSPECTOR's documentation. [X] I have reviewed the ED Record and agree with the PA's/AIRPLANE INSPECTOR's documentation. [] Additions or exceptions (if any) to the PAs/AIRPLANE INSPECTOR's note and plan are summarized below: [] (Peter MORENO,Bj Maciel)
[2018-01-30 14:45] VITALS: BP 140/80
== END 2018-01-30 14:45 ==
LOC: ERH 10:16
DX: G89.29 Other chronic pain (principal)

== ENCOUNTER 2018-02-05 19:53 | Emergency (ER) | payer OTHER, MEDICARE ==
[~2018-02-05] VITALS: Ht 162.6 cm; Wt 86.2 kg
--- NOTE | 2018-02-05 19:58 | ED GENERAL ADULT ---
History of Present Illness General Chief Complaint: General Adult Stated Complaint: "FEELING FUZZY" Source: patient Exam Limitations: no limitations Vital Signs & Intake/Output Vital Signs & Intake/Output Vital Signs Date Time Temp Pulse Resp B/P B/P Pulse O2 O2 Flow FiO2 Mean Ox Delivery Rate 02/06 0148 98.4 72 18 154/64 97 Room Air 02/05 2204 98.3 70 18 159/66 97 Room Air 02/05 2045 97 Room Air 02/057 98.0 95 18 167/79 97 Room Air ED Intake and Output 02/06 0000 02/05 1200 Intake Total Output Total Balance Patient 190 lb Weight Weight Reported by Patient Measurement Method Allergies Coded Allergies: No Known Allergies (02/05/18) Reconcile Medications Albuterol Sulfate (Ventolin Hfa) 90 MCG HFA.AER.AD 2 PUF INH Q4-6 PRN PRN RESPIRATORY (Reported) Amlodipine Besylate 5 MG TABLET 1 TAB PO DAILY HEART (Reported) Cyclobenzaprine HCl 10 MG TABLET 1 TAB PO BID PRN MUSCLE TIGHTNESS Esomeprazole (Nexium) 40 MG CAPSULE.DR 1 CAP PO DAILY GI (Reported) Meclizine HCl 25 MG TABLET 1 TAB PO TIDPRN PRN dizziness Meloxicam (Mobic) 15 MG TABLET 1 TAB PO DAILY PRN pain Ondansetron (Zofran Odt) 4 MG TAB.RAPDIS 1 TAB SL TID Nausea and vomiting Polyethylene Glycol 3350 (Miralax) 17 GRAM POWD.PACK 1 PAC PO DAILY PRN CONSTIPATION dissolve in water Tramadol HCl 50 MG TABLET 1 TAB PO BIDP PRN Severe Pain Triage Nurses Notes Reviewed? yes Onset: Gradual Duration: week(s):, waxing and waning Timing: recent history Injury Environment: home Severity: mild Modifying Factors: Improves With: rest. Associated Symptoms: "dizzy" "woozy" HPI: 77 yo woman presents with dizziness, tightness in back, abdomen, rib cage, consistent with prior episodes. She notes no recent triggers. She has no chest pain, fever, chills, dyspnea, nausea, vomiting, diarrhea. She is otherwise well. Past History Travel History Traveled to [place] past 21 day No Medical History Any Pertinent Medical History? 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 FH: colon cancer BROTHER (Bypass Sx). FHx: melanoma Relation not specified for: FH: coronary artery bypass surgery FH: stroke Hx Contributory? No Review of Systems Review of Systems Constitutional: Reports: no symptoms. EENTM: Reports: no symptoms. Respiratory: Reports: no symptoms. Cardiovascular: Reports: no symptoms. GI: Reports: no symptoms. Genitourinary: Reports: no symptoms. Musculoskeletal: Reports: no symptoms. Skin: Reports: no symptoms. Neurological/Psychological: Reports: no symptoms. Hematologic/Endocrine: Reports: no symptoms. Immunologic/Allergic: Reports: no symptoms. All Other Systems: Reviewed and Negative Physical Exam Physical Exam General Appearance: well developed/nourished, no apparent distress, alert, awake , comfortable Head: atraumatic, normal appearance Eyes: Bilateral: normal appearance. Ears, Nose, Throat: normal pharynx, normal ENT inspection Neck: normal inspection, supple, full range of motion Respiratory: normal breath sounds, chest non-tender, no respiratory distress, quiet respiration, lungs clear, lower rib cage tenderness to palpation. Cardiovascular: regular rate/rhythm Gastrointestinal: normal bowel sounds, soft, non-tender, no organomegaly Back: normal inspection, normal range of motion, muscle spasm, no vertebral tenderness Extremities: normal inspection, normal capillary refill, normal range of motion, no edema Neurologic/Psych: no motor/sensory deficits, awake, alert, oriented x 3 Skin: intact, normal color, warm/dry Core Measures ACS in differential dx? No CVA/TIA Diagnosis: No Sepsis Present: No Sepsis Focused Exam Completed? No Progress Differential Diagnoses I considered the following diagnoses in my evaluation of the patient: musculoskeletal pain, vertigo, fatigue, anxiety vs other. Plan of Care: Orders Procedure Date/time Status EKG 02/05 2006 Active Initial ED EKG: nsr, no acute change from prior Departure Departure Disposition: HOME OR SELF CARE Condition: Stable Clinical Impression Primary Impression: Musculoskeletal pain Secondary Impressions: Dizziness Referrals: Asim Zepeda MD (PCP/Family) Departure Forms: Customer Survey General Discharge Information Comments multiple labs/xrays/ct scans have been benign in recent past... she has a benign exam... she rested in ED, was comfortable throughout, ambulating well... she is safe for discharge wiht close follow up advised. Critical Care Note Critical Care Note Critical Care Time: non-applicable
[2018-02-06 01:48] VITALS: BP 154/64
== END 2018-02-06 01:50 ==
LOC: ERH 19:53
DX: R52 Pain, unspecified (principal); R42 Dizziness and giddiness
CPT/HCPCS: 93005; 93010; 96372; J1885

== ENCOUNTER 2018-02-09 12:20 | Emergency (ER) | payer OTHER, MEDICARE ==
[~2018-02-09] VITALS: Ht 167.6 cm; Wt 81.6 kg
--- NOTE | 2018-02-09 12:45 | ED AMS/SEIZURE/WEAK/DIZZY ---
History of Present Illness General Chief Complaint: General Adult Stated Complaint: DRY MOUTH AND DIZZINESS Source: patient, old records Exam Limitations: no limitations Vital Signs & Intake/Output Vital Signs & Intake/Output Vital Signs Date Time Temp Pulse Resp B/P B/P Pulse O2 O2 Flow FiO2 Mean Ox Delivery Rate 02/09 1610 84 140/70 02/09 1610 98.3 84 20 140/70 98 Room Air 02/09 1230 96.2 108 18 109/71 98 Room Air Allergies Coded Allergies: No Known Allergies (02/05/18) Reconcile Medications Albuterol Sulfate (Ventolin Hfa) 90 MCG HFA.AER.AD 2 PUF INH Q4-6 PRN PRN RESPIRATORY (Reported) Amlodipine Besylate 5 MG TABLET 1 TAB PO DAILY HEART (Reported) Cyclobenzaprine HCl 10 MG TABLET 1 TAB PO BID PRN MUSCLE TIGHTNESS Esomeprazole (Nexium) 40 MG CAPSULE.DR 1 CAP PO DAILY GI (Reported) Lubiprostone (Amitiza) 24 MCG CAPSULE 1 CAP PO BID GI (Reported) Meclizine HCl 25 MG TABLET 1 TAB PO TIDPRN PRN dizziness Meloxicam (Mobic) 15 MG TABLET 1 TAB PO DAILY PRN pain Ondansetron (Zofran Odt) 4 MG TAB.RAPDIS 1 TAB SL TID Nausea and vomiting Polyethylene Glycol 3350 (Miralax) 17 GRAM POWD.PACK 1 PAC PO DAILY PRN CONSTIPATION dissolve in water Tramadol HCl 50 MG TABLET 1 TAB PO BIDP PRN Severe Pain Triage Note: PT BIBA FROM HOME C/C 4 DAY HX OF B/L BACK SPASMS AND DRY MOUTH. SEEN IN ER WEDNESDAY FOR SAME. STATES SYMPTOMS PERSIST. Triage Nurses Notes Reviewed? yes Onset: Gradual Duration: day(s): Timing: recent history Severity: moderate HPI: 77-year-old female presents to emergency department complaining of abdominal pain which has been persistent for several days. Patient also reports intermittent dizziness and unsteady gait while walking. Patient complains of burning sensation to right hand is been present for several days. Patient also reports abdominal cramping which radiates toward her back. She admits to recent constipation for 3-4 days. She has been taking medication for constipation however only had 1 small hard bowel movement. Patient states that she had similar symptoms when she was seen here Wednesday. Patient denies fevers, vomiting, dyspnea. ([place] PA,Fatimah Rabia) Past History Travel History Traveled to [place] past 21 day No Medical History Any Pertinent Medical History? see below for history Neurological: vertigo EENT: allergies, cataracts, INNER EAR Cardiovascular: hypertension, negative stress test 2014 Respiratory: asthma, bronchitis, COPD Gastrointestinal: constipation, GERD, HERNIA, COLON RESECTION Hepatic: NONE Renal: UTI Musculoskeletal: disk herniation Psychiatric: anxiety Endocrine: NONE Blood Disorders: NONE Cancer(s): breast cancer, colon/rectal cancer HOME HEALTH AID/Reproductive: NONE History of MRSA: No History of VRE: No History of CDIFF: No Surgical History Surgical History: colon resection, hernia repair-incisional, lumpectomy (right), HERNIATED DISC,CATARACTS, COLON RESECTION Psychosocial History Who do you live with Patient/Self Services at Home Home Health Aide What is your primary language Azeri Tobacco Use: Never used Family History Family History, If Any: MOTHER (colon cancer, stroke at age of 70s). FH: colon cancer BROTHER (Bypass Sx). FHx: melanoma Relation not specified for: FH: coronary artery bypass surgery FH: stroke Hx Contributory? No (Fatimah Dunham) Review of Systems Review of Systems Constitutional: Reports: see HPI. EENTM: Reports: no symptoms. Respiratory: Reports: no symptoms. Cardiovascular: Reports: no symptoms. GI: Reports: see HPI. Genitourinary: Reports: no symptoms. Musculoskeletal: Reports: see HPI. Skin: Reports: no symptoms. Neurological/Psychological: Reports: see HPI. Hematologic/Endocrine: Reports: no symptoms. Immunologic/Allergic: Reports: no symptoms. All Other Systems: Reviewed and Negative (Fatimah Dunham) Physical Exam Physical Exam General Appearance: well developed/nourished, no apparent distress, alert, awake Head: atraumatic, normal appearance Eyes: Bilateral: normal appearance, PERRL, EOMI. Ears, Nose, Throat: normal pharynx, hearing grossly normal Neck: normal inspection, supple, full range of motion Respiratory: normal breath sounds, no respiratory distress, lungs clear Cardiovascular: regular rate/rhythm Gastrointestinal: normal bowel sounds, soft, non-tender, no organomegaly Back: normal inspection, normal range of motion Extremities: normal range of motion Neurologic/Psych: awake, alert, oriented x 3 Skin: intact, normal color, warm/dry Core Measures ACS in differential dx? No CVA/TIA Diagnosis No Sepsis Present: No Sepsis Focused Exam Completed? No (Chloé JOLLY,Fatimah Camarillo) Progress Differential Diagnosis: anemia, dehydration, drug intoxication, hypoglycemia, CONSTIPATION, COLITIS, ELECTROLYTE ABNORMALITY Plan of Care: Orders Procedure Date/time Status MISTAKE 02/09 1242 Active COMPREHENSIVE METABOLIC PANEL 02/09 1242 Complete CBC WITHOUT DIFFERENTIAL 02/09 124 Complete Laboratory Tests 02/09/18 1302: Anion Gap 11, Estimated GFR > 60, BUN/Creatinine Ratio 23.8, Glucose 90, Calcium 9.2, Total Bilirubin 0.7, AST 19, ALT 24, Alkaline Phosphatase 65, Total Protein 6.4, Albumin 3.8, Globulin 2.6, Albumin/Globulin Ratio 1.5, CBC w Diff NO MAN DIFF REQ, RBC 4.10 L, MCV 90.8, MCH 30.8, MCHC 33.9, RDW 14.3, MPV 7.5, Gran % 67.4, Lymphocytes % 20.1 L, Monocytes % 7.3, Eosinophils % 5.1 H, Basophils % 0.1, Absolute Granulocytes 3.2, Absolute Lymphocytes 0.9 L, Absolute Monocytes 0.3, Absolute Eosinophils 0.2, Absolute Basophils 0 Patient's blood work is stable compared to previous labs. Abdominal x-ray shows constipation without other acute abnormality. Patient is currently on AMITIZA for constipation. It was recommended that patient add-on miralax to take in addition to her current medication. Patient also to follow-up with her primary care doctor. She was given strict return precautions. Patient agrees with plan of care. The patient was seen and evaluated by Dr. Boggs who agrees with this plan. Diagnostic Imaging: Viewed by Me: Radiology Read. Discussed w/RAD: Radiology Read. Radiology Impression: PATIENT: ABA DIAZ PRESENT AGE: 77 PATIENT ACCOUNT NO: [id number] : 41 LOCATION: [facility] ORDERING PHYSICIAN: Fatimah JOLLY SERVICE DATE: 02/09/18917 EXAM TYPE: RAD - XRY-ABD MULTI VIEW W/PA CHEST EXAMINATION: XR ABDOMEN WITH PA CHEST CLINICAL INDICATION: Rule out constipation, bowel obstruction, free air. COMPARISON: 01/29/2018 TECHNIQUE: 2 views of the abdomen with single view of the chest. FINDINGS: The lungs are well expanded. There is no focal consolidation, edema, or effusion. No pneumothorax. The cardiomediastinal silhouette is within normal limits. No acute osseous abnormality. There is a normal bowel gas pattern without dilated loops of bowel. Gas and stool are seen throughout the colon. Mild stool burden within the right hemicolon. There is no free air on the upright view. No air-fluid levels. Degenerative changes of the spine. IMPRESSION : Nonobstructive bowel gas pattern. Mild colonic stool burden. No free air. DICTATED BY: Richy Negro MD DATE/TIME DICTATED:02/09/181612 JAVA INTEGRATION DEVELOPER:MARIANO DATE/TIME TRANSCRIBED:02/09/181612 CONFIDENTIAL, DO NOT COPY WITHOUT APPROPRIATE AUTHORIZATION. <Electronically signed in Other Vendor System> SIGNED BY: Richy Negro MD 02/09/181620 Initial ED EKG: none (Chloé JOLLY,Fatimah Camarillo) Departure Departure Disposition: HOME OR SELF CARE Condition: Stable Clinical Impression Primary Impression: Constipation Secondary Impressions: Dizziness Referrals: Asim Zepeda MD (PCP/Family) Additional Instructions: Follow-up with Dr. Zepeda this week, call the office to make an appointment to discuss YOUR visit to the emergency department today. Take Mirilax for constipation as needed. Return with worsening symptoms or concerns. Please note that there might be incidental findings in your evaluation that are unrelated to the current emergency department visit. Please notify your primary care doctor about this emergency department visit in order to obtain and review all of the testing performed so that these incidental findings can be monitored as needed. If you had an x-ray performed, please understand that some fractures may not be seen on the initial set of x-rays. If your symptoms persist you might need a repeat set of x-rays to check for such a fracture. If you had a laceration evaluated, please understand that foreign bodies such as glass or wood may not be visible to the naked eye or on plain x-rays. If the wound becomes red, swollen, increasingly more painful or if there is any drainage from the wound, please have it reevaluated by a physician for the possibility of a retained foreign body. If you're unable to follow up as outlined in the discharge instructions please return to the emergency department. Thank you for choosing the [facility] Emergency Department for your care. It was a pleasure to serve you today. Departure Forms: Customer Survey General Discharge Information (Chloé JOLLY,Fatimah Camarillo) PA/INTERCEPTOR OPERATOR Co-Sign Statement Statement: ED Attending supervision documentation- [X] I saw and evaluated the patient. I have also reviewed all the pertinent lab results and diagnostic results. I agree with the findings and the plan of care as documented in the PA's/INTERCEPTOR OPERATOR's documentation. Patient presents for evaluation of dry mouth and dizziness. Physical examination reveals an alert and conversant woman with a nonfocal neurologic examination. Mucosa are moist. [] I have reviewed the ED Record and agree with the PA's/INTERCEPTOR OPERATOR's documentation. [] Additions or exceptions (if any) to the PAs/INTERCEPTOR OPERATOR's note and plan are summarized below: [] (Flakita MORENO,Mahin Mcintosh)
[2018-02-09 13:11] LABS: ABSOLUTE BASOPHIL COUNT 0 /CUMM (0.0-0.2); ABSOLUTE EOSINOPHIL COUNT 0.2 /CUMM (0.0-0.7); ABSOLUTE GRANULOCYTE CT 3.2 /CUMM (1.4-6.5); ABSOLUTE LYMPH COUNT 0.9 /CUMM (1.2-3.4); ABSOLUTE MONOCYTE COUNT 0.3 /CUMM (0.10-0.60); BASOPHIL % 0.1 % (0.0-2.0); EOSINOPHIL % 5.1 % (0-5); GRANULOCYTE % 67.4 % (42.2-75.2); HEMATOCRIT 37.2 % (37-47); MEAN CORPUSCULAR HGB 30.8 PG (27.0-31.0); MEAN CORPUSCULAR HGB CONC 33.9 G/DL (33.0-37.0); MEAN CORPUSCULAR VOLUME 90.8 FL (81.0-99.0); MEAN PLATELET VOLUME 7.5 FL (7.4-10.4); PLATELET COUNT 217 /CUMM (130-400); RBC DISTRIBUTION WIDTH 14.3 % (11.5-14.5); WHITE BLOOD CELL COUNT 4.7 /CUMM (4.8-10.8)
[2018-02-09] MEDS ORDERED: AMITIZA24 MC1 PO (14:37)
[2018-02-09 16:10] VITALS: BP 140/70
--- NOTE | 2018-02-09 16:21 | RADIOLOGY REPORT ---
EXAMINATION: XR ABDOMEN WITH PA CHEST CLINICAL INDICATION: Rule out constipation, bowel obstruction, free air. COMPARISON: 01/29/2018 TECHNIQUE: 2 views of the abdomen with single view of the chest. FINDINGS: The lungs are well expanded. There is no focal consolidation, edema, or effusion. No pneumothorax. The cardiomediastinal silhouette is within normal limits. No acute osseous abnormality. There is a normal bowel gas pattern without dilated loops of bowel. Gas and stool are seen throughout the colon. Mild stool burden within the right hemicolon. There is no free air on the upright view. No air-fluid levels. Degenerative changes of the spine. IMPRESSION: Nonobstructive bowel gas pattern. Mild colonic stool burden. No free air.
[2018-02-19] MEDS ORDERED: SKELAXIN800 M1 PO (12:28)
== END 2018-02-09 16:39 ==
LOC: ERH 12:20
PROVIDERS: Physician Assistant
DX: K59.00 Constipation, unspecified (principal); R42 Dizziness and giddiness
CPT/HCPCS: 74022; 96372; J2550

== ENCOUNTER 2018-05-22 08:48 | Emergency (ER) | payer OTHER, MEDICARE ==
[~2018-05-22] VITALS: Ht 162.6 cm; Wt 85.3 kg
[~2018-05-22 08:48] MED LIST changes: +AMITIZA24 MC1 PO; +BACTRIM DS TAB1 EACH PO; +SKELAXIN800 M1 PO
--- NOTE | 2018-05-22 09:53 | ED GENERAL ADULT ---
History of Present Illness General Chief Complaint: General Adult Stated Complaint: BIBA FOR SOB Source: patient, old records Exam Limitations: no limitations Vital Signs & Intake/Output Vital Signs & Intake/Output Vital Signs Date Time Temp Pulse Resp B/P B/P Pulse O2 O2 Flow FiO2 Mean Ox Delivery Rate 05/22 1118 97.0 92 20 128/88 98 Room Air 05/22 0958 Room Air Room Air 05/22 0855 96.8 99 20 131/90 99 Room Air Allergies Coded Allergies: No Known Allergies (02/05/18) Triage Note: BIBA FROM HOME, C/O DIZZINESS, ITCHY ALL OVER, MID ABDOMINAL PAIN, HANDS BURNING, NAUSEA X 3 DAYS. TAKING ZOFRAN WITHOUT RELIEF. Triage Nurses Notes Reviewed? yes Onset: Gradual Duration: day(s): Timing: recent history Severity: moderate HPI: 77YO female presents to ED with multiple complaints. Patient complaining of abdominal tightness for the past few days associated with nausea, zofran is not helping, no episodes of vomiting. Pain located to bilateral upper abdominal quadrants. She has chronic constipation for which she takes amitiza. Patient also reports cough productive of white sputum which has been chronic, she is requesting nebulizer. She reports itching sensation of face and ears, "I might have an infection". She states "my aides are always coming over with allergies". Patient also notes burning sensation of hands. The patient endorses intermittent chills. Patient also complains of dizziness and dysequilibrium which is chronic. The patient has presented here for similar symptoms many times in the past. She denies chest pain, diarrhea, rash. (Chloé JOLLY,Fatimah Camarillo) Reconcile Medications Albuterol Sulfate (Ventolin Hfa) 90 MCG HFA.AER.AD 2 PUF INH Q4-6 PRN PRN RESPIRATORY (Reported) Amlodipine Besylate 5 MG TABLET 1 TAB PO DAILY HEART (Reported) Benzonatate (Tessalon Perle) 100 MG CAPSULE 1 CAP PO TID PRN cough Esomeprazole (Nexium) 40 MG CAPSULE.DR 1 CAP PO DAILY GI (Reported) Hydroxyzine Hydrochloride (Atarax) 50 MG TAB 1 TAB PO QPM PRN itching Lubiprostone (Amitiza) 24 MCG CAPSULE 1 CAP PO BID GI (Reported) Meloxicam (Mobic) 15 MG TABLET 1 TAB PO DAILY PRN pain Ondansetron (Zofran Odt) 4 MG TAB.RAPDIS 1 TAB SL Q6 PRN NAUSEA/VOMITING Polyethylene Glycol 3350 (Miralax) 17 GRAM POWD.PACK 1 PAC PO DAILY PRN CONSTIPATION dissolve in water Sulfamethoxazole/Trimethoprim (Bactrim Ds Tablet) 800 MG-160 MG TABLET 1 TAB PO BID UTI Tramadol HCl 50 MG TABLET 1 TAB PO BIDP PRN Severe Pain (Peter MORENO,Bj Maciel) Past History Travel History Traveled to [place] past 21 day No Medical History Any Pertinent Medical History? 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 FH: colon cancer BROTHER (Bypass Sx). FHx: melanoma Relation not specified for: FH: coronary artery bypass surgery FH: stroke Hx Contributory? No (Fatimah Dunham) Review of Systems Review of Systems Constitutional: Reports: see HPI. EENTM: Reports: see HPI. Respiratory: Reports: see HPI. Cardiovascular: Reports: no symptoms. GI: Reports: see HPI. Genitourinary: Reports: no symptoms. Musculoskeletal: Reports: no symptoms. Skin: Reports: no symptoms. Neurological/Psychological: Reports: see HPI. Hematologic/Endocrine: Reports: no symptoms. Immunologic/Allergic: Reports: no symptoms. All Other Systems: Reviewed and Negative (Fatimah Dunham) Physical Exam Physical Exam General Appearance: well developed/nourished, no apparent distress, alert, awake Head: atraumatic, normal appearance Eyes: Bilateral: normal appearance, PERRL, EOMI. 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 No CVA/TIA Diagnosis: No Sepsis Present: No Sepsis Focused Exam Completed? No (Chloé JOLLY,Fatimah Camarillo) Progress Differential Diagnoses I considered the following diagnoses in my evaluation of the patient: [ constipation, SBO, vertigo, allergies, otitis media, otitis externa, bronchitis, GERD] Plan of Care: Orders Procedure Date/time Status EKG 05/22 945 Active Patient's abdominal xray shows large about of stool in right colon. Patient has chronic constipation for which she takes amitiza for. I recommended patient take senna for two days. I also recommended atarax for the patient's itching. The patient will continue her normal daily medications. EKG is stable compared to patient's baseline. The patient is well known to this ER and presents with similar symptoms regularly. All findings discussed with Dr. Green who agrees with the plan of care. Patient in no acute distress, vital signs are stable, she ambulates with steady gate. Patient notes improvement following atarax. Diagnostic Imaging: Viewed by Me: Radiology Read. Discussed w/RAD: Radiology Read. Radiology Impression: PATIENT: ABA DIAZ PRESENT AGE: 77 PATIENT ACCOUNT NO: [id number] : 41 LOCATION: [facility] ORDERING PHYSICIAN: Fatimah JOLLY SERVICE DATE: 05/22/18 EXAM TYPE: RAD - [id number] VIEWS EXAMINATION: XR ABDOMEN MULTIPLE VIEWS CLINICAL INDICATION: Upper abdominal pain. COMPARISON: CT abdomen 04/24/2018, abdomen radiographs 01/11/2018, chest radiograph 04/12/2018. TECHNIQUE: The abdomen is imaged in 4 views including frontal view of the chest and pelvis. FINDINGS: There is large amount of stool right colon. There is no significant stool seen in the ascending colon, sigmoid colon, rectum. Some fine anastomosis chain clips are noted in the pelvis. There is scattered gas in the small bowel of normal caliber. There is no obstruction or abnormal collections of gas. The lungs are clear. There is no evidence of pneumothorax or airspace consolidation or effusion. Heart is normal in size. Bony structures again show multilevel degenerative changes lumbar spine. IMPRESSION: 1. Large amount of stool right colon. No proximal obstruction or abnormal collections of gas. 2. Lungs clear. No airspace consolidation or effusion. DICTATED BY: Michael Aguirre MD DATE/ TIME DICTATED:05/22/181111 STEEL LAYER:MARIANO DATE/TIME TRANSCRIBED: 05/22/181111 CONFIDENTIAL, DO NOT COPY WITHOUT APPROPRIATE AUTHORIZATION. < Electronically signed in Other Vendor System> SIGNED BY: Michael Aguirre MD 05/22/18 1121 Initial ED EKG: SINUS RHYTHM @78BPM, NONSPECIFIC ST CHANGES Prior EKG: unchanged (04/24/18) (Chloé JOLLY,Fatimah Camarillo) Departure Departure Disposition: HOME OR SELF CARE Condition: Stable Clinical Impression Primary Impression: Abdominal pain Qualifiers: Abdominal location: upper abdomen, unspecified Qualified Code: R10.10 - Upper abdominal pain, unspecified Secondary Impressions: Cough, Dizziness, Itching Referrals: Asim Zepeda MD (PCP/Family) Additional Instructions: Take atarax as prescribed for itching symptoms. Continue amitiza for constipation. Take senna for the next two days. Follow up with your doctor this week. Return if if worsening symptoms or concerns. Please note that there might be incidental findings in your evaluation that are unrelated to the current emergency department visit. Please notify your primary care doctor about this emergency department visit in order to obtain and review all of the testing performed so that these incidental findings can be monitored as needed. If you had an x-ray performed, please understand that some fractures may not be seen on the initial set of x-rays. If your symptoms persist you might need a repeat set of x-rays to check for such a fracture. If you had a laceration evaluated, please understand that foreign bodies such as glass or wood may not be visible to the naked eye or on plain x-rays. If the wound becomes red, swollen, increasingly more painful or if there is any drainage from the wound, please have it reevaluated by a physician for the possibility of a retained foreign body. If you're unable to follow up as outlined in the discharge instructions please return to the emergency department. Thank you for choosing the [facility] Emergency Department for your care. It was a pleasure to serve you today. Departure Forms: Customer Survey General Discharge Information Prescriptions: Current Visit Scripts Hydroxyzine Hydrochloride (Atarax) 1 TAB PO QPM PRN itching #10 TAB (Chléo JOLLY,Fatimah Camarillo) PA/RETORT FIREMAN Co-Sign Statement Statement: ED Attending supervision documentation- [X] I saw and evaluated the patient. I have also reviewed all the pertinent lab results and diagnostic results. I agree with the findings and the plan of care as documented in the PA's/RETORT FIREMAN's documentation. [X] I have reviewed the ED Record and agree with the PA's/RETORT FIREMAN's documentation. [] Additions or exceptions (if any) to the PAs/RETORT FIREMAN's note and plan are summarized below: [] (Peter MORENO,Bj Maciel) Critical Care Note Critical Care Note Critical Care Time: non-applicable (Fatiamh Dunham)
[2018-05-22 11:18] VITALS: BP 128/88
--- NOTE | 2018-05-22 11:21 | RADIOLOGY REPORT ---
EXAMINATION: XR ABDOMEN MULTIPLE VIEWS CLINICAL INDICATION: Upper abdominal pain. COMPARISON: CT abdomen 04/24/2018, abdomen radiographs 01/11/2018, chest radiograph 04/12/2018. TECHNIQUE: The abdomen is imaged in 4 views including frontal view of the chest and pelvis. FINDINGS: There is large amount of stool right colon. There is no significant stool seen in the ascending colon, sigmoid colon, rectum. Some fine anastomosis chain clips are noted in the pelvis. There is scattered gas in the small bowel of normal caliber. There is no obstruction or abnormal collections of gas. The lungs are clear. There is no evidence of pneumothorax or airspace consolidation or effusion. Heart is normal in size. Bony structures again show multilevel degenerative changes lumbar spine. IMPRESSION: 1. Large amount of stool right colon. No proximal obstruction or abnormal collections of gas. 2. Lungs clear. No airspace consolidation or effusion.
[2018-05-22] MEDS ORDERED: HYDROXYZINE HCL50 M1 PO (11:41)
== END 2018-05-22 11:42 ==
LOC: ERH 08:48
DX: R10.10 Upper abdominal pain, unspecified (principal); R05 Cough; R42 Dizziness and giddiness; L29.9 Pruritus, unspecified
CPT/HCPCS: 74021; 93005; 93010

== ENCOUNTER 2018-06-19 14:20 | Emergency (ER) | payer OTHER, MEDICARE ==
[~2018-06-19] VITALS: Ht 162.6 cm; Wt 85.3 kg
[~2018-06-19 14:20] MED LIST changes: +HYDROXYZINE HCL50 M1 PO
[2018-06-19 14:57] LABS: ABSOLUTE BASOPHIL COUNT 0 /CUMM (0.0-0.2); ABSOLUTE EOSINOPHIL COUNT 0.2 /CUMM (0.0-0.7); ABSOLUTE GRANULOCYTE CT 2.6 /CUMM (1.4-6.5); ABSOLUTE LYMPH COUNT 1.1 /CUMM (1.2-3.4); ABSOLUTE MONOCYTE COUNT 0.3 /CUMM (0.10-0.60); BASOPHIL % 0.5 % (0.0-2.0); EOSINOPHIL % 4.8 % (0-5); GRANULOCYTE % 62.3 % (42.2-75.2); HEMATOCRIT 38.2 % (37-47); MEAN CORPUSCULAR HGB CONC 34.1 G/DL (33.0-37.0); MEAN CORPUSCULAR VOLUME 90.8 FL (81.0-99.0); MEAN PLATELET VOLUME 7.8 FL (7.4-10.4); PLATELET COUNT 184 /CUMM (130-400); RBC DISTRIBUTION WIDTH 13.9 % (11.5-14.5); RED BLOOD CELL CT 4.21 /CUMM (4.20-5.40); WHITE BLOOD CELL COUNT 4.2 /CUMM (4.8-10.8)
--- NOTE | 2018-06-19 15:13 | ED GENERAL ADULT ---
History of Present Illness General Chief Complaint: Abdominal Pain/Flank Pain Stated Complaint: BIBA, ABD PAIN Source: patient, old records Exam Limitations: no limitations Vital Signs & Intake/Output Vital Signs & Intake/Output Vital Signs Date Time Temp Pulse Resp B/P B/P Pulse O2 O2 Flow FiO2 Mean Ox Delivery Rate 06/19 1715 Room Air 06/19 1650 98.5 77 20 137/64 97 Room Air 06/19 1429 97.4 106 18 146/95 99 Room Air Allergies Coded Allergies: No Known Allergies (02/05/18) Reconcile Medications Albuterol Sulfate (Ventolin Hfa) 90 MCG HFA.AER.AD 2 PUF INH Q4-6 PRN PRN RESPIRATORY (Reported) Amlodipine Besylate 5 MG TABLET 1 TAB PO DAILY HEART (Reported) Benzonatate (Tessalon Perle) 100 MG CAPSULE 1 CAP PO TID PRN cough Esomeprazole (Nexium) 40 MG CAPSULE.DR 1 CAP PO DAILY GI (Reported) Hydroxyzine Hydrochloride (Atarax) 50 MG TAB 1 TAB PO QPM PRN itching Lubiprostone (Amitiza) 24 MCG CAPSULE 1 CAP PO BID GI (Reported) Meloxicam (Mobic) 15 MG TABLET 1 TAB PO DAILY PRN pain Ondansetron (Zofran Odt) 4 MG TAB.RAPDIS 1 TAB SL Q6 PRN NAUSEA/VOMITING Polyethylene Glycol 3350 (Miralax) 17 GRAM/DOSE POWDER 17 GM PO DAILY PRN CONSTIPATION mix with water, juice, soda, coffee or tea Polyethylene Glycol 3350 (Miralax) 17 GRAM POWD.PACK 1 PAC PO DAILY PRN CONSTIPATION dissolve in water Sulfamethoxazole/Trimethoprim (Bactrim Ds Tablet) 800 MG-160 MG TABLET 1 TAB PO BID UTI Tramadol HCl 50 MG TABLET 1 TAB PO BIDP PRN Severe Pain Triage Note: BIBA FROM HOME, C/O SOB, UPPER ABDOMINAL PAIN, TIGHTNESS, DIZZINESS, COUGH, SHAKING, SORE THROAT TODAY, STATES "IM NOT KOOKY". "MY EARS ARE FLAKY. Triage Nurses Notes Reviewed? yes Onset: Abrupt Duration: day(s): Timing: recent history HPI: 77-year-old female comes into the emergency room for further evaluation of abdominal pain and feeling dizzy. Didn't to me going on for days to weeks. Patient has been seen here for the same symptoms in the past. Denies any vomiting. Denies any changes in bowel movement. She comes in for further evaluation by ambulance. (David Greenwood) Past History Travel History Traveled to [place] past 21 day No Medical History Any Pertinent Medical History? 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 FH: colon cancer BROTHER (Bypass Sx). FHx: melanoma Relation not specified for: FH: coronary artery bypass surgery FH: stroke Hx Contributory? No (David Greenwood) Review of Systems Review of Systems Constitutional: Reports: no symptoms. EENTM: Reports: no symptoms. Respiratory: Reports: no symptoms. Cardiovascular: Reports: see HPI. GI: Reports: see HPI. Genitourinary: Reports: no symptoms. Musculoskeletal: Reports: no symptoms. Skin: Reports: no symptoms. Neurological/Psychological: Reports: no symptoms. Hematologic/Endocrine: Reports: no symptoms. Immunologic/Allergic: Reports: no symptoms. All Other Systems: Reviewed and Negative (David Greenwood) Physical Exam Physical Exam General Appearance: well developed/nourished, no apparent distress, alert, awake Head: atraumatic, normal appearance Eyes: Bilateral: normal appearance. Ears, Nose, Throat: normal ENT inspection, hearing grossly normal Neck: normal inspection Respiratory: no respiratory distress Cardiovascular: regular rate/rhythm Gastrointestinal: soft Back: normal inspection Extremities: normal inspection Neurologic/Psych: awake, alert Skin: intact, normal color Core Measures ACS in differential dx? No CVA/TIA Diagnosis: No Sepsis Present: No Sepsis Focused Exam Completed? No (David Greenwood) Progress Differential Diagnoses I considered the following diagnoses in my evaluation of the patient: Arrhythmia, gastritis, NE, anxiety, Plan of Care: Orders Procedure Date/time Status TROPONIN LEVEL 06/19 1426 Complete LIPASE 06/19 1426 Complete COMPREHENSIVE METABOLIC PANEL 06/19 1426 Complete CBC WITHOUT DIFFERENTIAL 06/19 1426 Complete EKG 06/19 1426 Active Laboratory Tests 06/19/18 1449: Anion Gap 7, Estimated GFR 54 L, BUN/Creatinine Ratio 23.0, Glucose 130 H, Calcium 9.1, Total Bilirubin 0.3, AST 18, ALT 19, Alkaline Phosphatase 72, Troponin I < 0.01, Total Protein 5.8 L, Albumin 3.5, Globulin 2.3, Albumin/ Globulin Ratio 1.5, Lipase 101, CBC w Diff NO MAN DIFF REQ, RBC 4.21, MCV 90.8, MCH 31.0, MCHC 34.1, RDW 13.9, MPV 7.8, Gran % 62.3, Lymphocytes % 25.5, Monocytes % 6.9, Eosinophils % 4.8, Basophils % 0.5, Absolute Granulocytes 2.6, Absolute Lymphocytes 1.1 L, Absolute Monocytes 0.3, Absolute Eosinophils 0.2, Absolute Basophils 0 Initial ED EKG: normal sinus rhythm, rate (99) Prior EKG: unchanged (David Greenwood) Departure Departure Disposition: HOME OR SELF CARE Condition: Stable Clinical Impression Primary Impression: Dizziness Referrals: Asim Zepeda MD (PCP/Family) Additional Instructions: Patient eloped before discharge instructions. Departure Forms: Customer Survey General Discharge Information Comments 06/19/2018 9:22:01 PM No acute findings here in the emergency room. Follow-up with PCP. (David Greenwood) PA/ADMITTING COUNSELOR Co-Sign Statement Statement: ED Attending supervision documentation- x I saw and evaluated the patient. I have also reviewed all the pertinent lab results and diagnostic results. I agree with the findings and the plan of care as documented in the PA's/ADMITTING COUNSELOR's documentation. [] I have reviewed the ED Record and agree with the PA's/ADMITTING COUNSELOR's documentation. [] Additions or exceptions (if any) to the PAs/ADMITTING COUNSELOR's note and plan are summarized below: [] (Edwige MORENO,Jomar) Critical Care Note Critical Care Note Critical Care Time: non-applicable (Jama JOLLY,David)
[2018-06-19 16:50] VITALS: BP 137/64
== END 2018-06-19 18:16 ==
LOC: ERH 14:20
PROVIDERS: Physician Assistant Medical
DX: R42 Dizziness and giddiness (principal)
CPT/HCPCS: 93005; 93010; J3101

== ENCOUNTER 2018-06-24 11:12 | Emergency (ER) | payer OTHER, MEDICARE ==
[2018-06-24 11:17] VITALS: BP 128/70
--- NOTE | 2018-06-24 11:27 | ED AMS/SEIZURE/WEAK/DIZZY ---
History of Present Illness General Chief Complaint: General Adult Stated Complaint: BIBA MULTI COMPLAINTS Source: patient Exam Limitations: no limitations Vital Signs & Intake/Output Vital Signs & Intake/Output Vital Signs Date Time Temp Pulse Resp B/P B/P Pulse O2 O2 Flow FiO2 Mean Ox Delivery Rate 06/24 1117 98.4 94 18 128/70 98 Room Air 06/24 1116 Room Air Allergies Coded Allergies: No Known Allergies (02/05/18) Reconcile Medications Albuterol Sulfate (Ventolin Hfa) 90 MCG HFA.AER.AD 2 PUF INH Q4-6 PRN PRN RESPIRATORY (Reported) Amlodipine Besylate 5 MG TABLET 1 TAB PO DAILY HEART (Reported) Benzonatate (Tessalon Perle) 100 MG CAPSULE 1 CAP PO TID PRN cough Esomeprazole (Nexium) 40 MG CAPSULE.DR 1 CAP PO DAILY GI (Reported) Hydroxyzine Hydrochloride (Atarax) 50 MG TAB 1 TAB PO QPM PRN itching Lubiprostone (Amitiza) 24 MCG CAPSULE 1 CAP PO BID GI (Reported) Meloxicam (Mobic) 15 MG TABLET 1 TAB PO DAILY PRN pain Nystatin 100,000 UNIT/ML ORAL.SUSP 5 ML PO 4 TIMES/DAY THRUSH Ondansetron (Zofran Odt) 4 MG TAB.RAPDIS 1 TAB SL Q6 PRN NAUSEA/VOMITING Polyethylene Glycol 3350 (Miralax) 17 GRAM/DOSE POWDER 17 GM PO DAILY PRN CONSTIPATION mix with water, juice, soda, coffee or tea Polyethylene Glycol 3350 (Miralax) 17 GRAM POWD.PACK 1 PAC PO DAILY PRN CONSTIPATION dissolve in water Sulfamethoxazole/Trimethoprim (Bactrim Ds Tablet) 800 MG-160 MG TABLET 1 TAB PO BID UTI Tramadol HCl 50 MG TABLET 1 TAB PO BIDP PRN Severe Pain Triage Note: PT C/O FATIGUE, DIZZINESS, LIGHTHEADEDNESS, DRY MOUTH, MUSCULAR TIGHTNESS, AND INCREASED URINARY FREQUENCY. PT REPORTS SHE WAS REFERRED TO HER PCP BY HER VISITING RN BUT REPORTS "THERE WERE NO CABS SO I CAME HERE". PT IS A&OX3 SPEAKING IN FULL COMPLETE SENTENCES. RESPIRATIONS EVEN AND NON LABORED. SKIN IS PINK WARM AND DRY. Triage Nurses Notes Reviewed? yes Onset: Abrupt Duration: day(s):, constant Timing: recent history Injury Environment: home HPI: 77-year-old female seen here for same symptoms in the past comes in with multiple complaints of lightheaded dizzy abdominal discomfort. She's got some associated sore throat and runny nose and nasal congestion. She feels weak. Symptoms been going on for days. sent in by nurse. (David Greenwood) Past History Travel History Traveled to [place] past 21 day No Medical History Any Pertinent Medical History? 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 FH: colon cancer BROTHER (Bypass Sx). FHx: melanoma Relation not specified for: FH: coronary artery bypass surgery FH: stroke Hx Contributory? No (David Greenwood) Review of Systems Review of Systems Constitutional: Reports: see HPI. EENTM: Reports: no symptoms. Respiratory: Reports: no symptoms. Cardiovascular: Reports: see HPI. GI: Reports: see HPI. Genitourinary: Reports: see HPI. Musculoskeletal: Reports: no symptoms. Skin: Reports: no symptoms. Neurological/Psychological: Reports: no symptoms. Hematologic/Endocrine: Reports: no symptoms. Immunologic/Allergic: Reports: no symptoms. All Other Systems: Reviewed and Negative (David Greenwood) Physical Exam Physical Exam General Appearance: well developed/nourished, no apparent distress, alert Head: atraumatic, normal appearance Eyes: Bilateral: normal appearance. Ears, Nose, Throat: normal ENT inspection, white patches on tongue, Neck: normal inspection Respiratory: normal breath sounds, no respiratory distress Cardiovascular: edema Gastrointestinal: soft Back: normal inspection Extremities: normal range of motion Neurologic/Psych: awake, alert Skin: intact, normal color Core Measures ACS in differential dx? No CVA/TIA Diagnosis No Sepsis Present: No Sepsis Focused Exam Completed? No (David Greenwood) Progress Differential Diagnosis: arrythmia, benign positional vertigo, UTI/pyelo, anxiety Plan of Care: Orders Procedure Date/time Status URINALYSIS 06/24 1119 Complete EKG 06/24 1119 Active Laboratory Tests 06/24/18 1150: Urine Color STRAW, Urine Clarity CLEAR, Urine pH 6.5, Ur Specific [place] <= 1.005, Urine Protein NEG, Urine Ketones NEG, Urine Nitrite NEG, Urine Bilirubin NEG, Urine Urobilinogen 0.2, Ur Leukocyte Esterase TRACE H, Ur Microscopic SEDIMENT EXAMINED, Urine RBC RARE, Urine WBC RARE, Ur Epithelial Cells FEW, Urine Hemoglobin TRACE-INTACT, Urine Glucose NEG Diagnostic Imaging: Viewed by Me: Radiology Read. Discussed w/RAD: Radiology Read. Radiology Impression: PATIENT: ABA DIAZ PRESENT AGE: 77 PATIENT ACCOUNT NO: [id number] : 41 LOCATION: [facility] ORDERING PHYSICIAN: David JOLLY SERVICE DATE: 06/24/18 EXAM TYPE : RAD - XRY-CHEST XRAY, TWO VIEWS EXAMINATION: XR CHEST CLINICAL INFORMATION: Cough. COMPARISON: 04/02/2018 and 04/12/2018 TECHNIQUE: 2 views of the chest were obtained. FINDINGS: Lungs are well expanded. Minimal linear opacities of scar or discoid atelectasis in right lung base. No focal interstitial infiltrate , consolidation or pleural effusion. Cardiac silhouette is normal in size. The hilar contours are normal. Bones appear diffusely osteopenic. No acute findings in the mildly degenerated thoracic spine. IMPRESSION: No specific source of coughing is identified. No evidence of pneumonia or other significant, acute pathology compared to 04/12/2018. DICTATED BY: Josué Villegas MD DATE/TIME DICTATED:06/24/181200 OIM ARCHITECT:MARIANO DATE/TIME TRANSCRIBED:1200 CONFIDENTIAL, DO NOT COPY WITHOUT APPROPRIATE AUTHORIZATION. < Electronically signed in Other Vendor System> SIGNED BY: Josué Villegas MD 06/24/181206 Initial ED EKG: normal sinus rhythm, rate (79) (David Greenwood) Departure Departure Disposition: HOME OR SELF CARE Condition: Stable Clinical Impression Primary Impression: Dizziness Secondary Impressions: Oral thrush Referrals: Asim Zepeda MD (PCP/Family) Additional Instructions: Please go over all results of today's visit with your primary care doctor. Contact your primary care doctor to let them know you were here in the emergency room. There may be nonspecific findings which may not be related to your visit today here in the emergency room but may require further evaluation and chronic monitoring by your primary care doctor. If you had a laceration today the chance of foreign body always remains. You should follow-up with your primary care doctor for recheck in 3-5 days for a wound check. If you had an x-ray done there is a chance that a fracture could have been missed on initial read and you should follow-up with your primary care doctor for repeat x-rays if symptoms persist. If your blood pressure was elevated here in the emergency room please have rechecked by [facility] primary care doctor within the next 48. If you were prescribed a narcotic here in the emergency room or any type of controlled substances you're not allowed to drive while taking this medication or operate any type of heavy machinery. Narcotics can make you feel lightheaded dizziness nausea and can cause constipation. You may need to picking machine operator helper a stool softener. Thank you for choosing [facility] emergency room. Please return to the emergency room immediately if you have any other concerns worsening of symptoms. Departure Forms: Customer Survey General Discharge Information Prescriptions: Current Visit Scripts Nystatin 5 ML PO 4 TIMES/DAY #200 ML Comments 06/24/2018 2:53:08 PM Patient clinically looks well. In no apparent distress. Nontoxic-appearing. Patient feels better. Feels ready for discharge. (David Greenwood) PA/SHOCK ABSORBER INSTALLER Co-Sign Statement Statement: ED Attending supervision documentation- [] I saw and evaluated the patient. I have also reviewed all the pertinent lab results and diagnostic results. I agree with the findings and the plan of care as documented in the PA's/SHOCK ABSORBER INSTALLER's documentation. [x] I have reviewed the ED Record and agree with the PA's/SHOCK ABSORBER INSTALLER's documentation. [] Additions or exceptions (if any) to the PAs/SHOCK ABSORBER INSTALLER's note and plan are summarized below: [] (Armand MORENO,[facility])
--- NOTE | 2018-06-24 12:07 | RADIOLOGY REPORT ---
EXAMINATION: XR CHEST CLINICAL INFORMATION: Cough. COMPARISON: 04/02/2018 and 04/12/2018 TECHNIQUE: 2 views of the chest were obtained. FINDINGS: Lungs are well expanded. Minimal linear opacities of scar or discoid atelectasis in right lung base. No focal interstitial infiltrate, consolidation or pleural effusion. Cardiac silhouette is normal in size. The hilar contours are normal. Bones appear diffusely osteopenic. No acute findings in the mildly degenerated thoracic spine. IMPRESSION: No specific source of coughing is identified. No evidence of pneumonia or other significant, acute pathology compared to 04/12/2018.
[2018-06-24] MEDS ORDERED: NYSTATIN100000 UNI PO (14:05)
== END 2018-06-24 14:06 ==
LOC: ERH 11:12
DX: R42 Dizziness and giddiness (principal); B37.0 Candidal stomatitis; I10 Essential (primary) hypertension; J44.9 Chronic obstructive pulmonary disease, unspecified; K21.9 Gastro-esophageal reflux disease without esophagitis; F41.9 Anxiety disorder, unspecified
CPT/HCPCS: 71046; 81001; 93005; 93010; 96372; J1885

== ENCOUNTER 2018-06-27 09:41 | Emergency (ER) | payer OTHER, MEDICARE ==
[~2018-06-27 09:41] MED LIST changes: +NYSTATIN100000 UNI PO
== END 2018-06-27 10:04 | disposition admitted as inpatient to this hospital (09) ==
LOC: ERH 09:41
DX: R07.0 Pain in throat (principal)